=== PATIENT | female | born 1955 | race Caucasian/White ===

== ENCOUNTER 2023-08-16 10:29 | Outpatient (OUT) | payer MEDICARE, OTHER, SELFPAY ==
[2023-08-16 11:10] LABS: Basophils Percent Auto 0.6 % (0.2-2.0); Eosinophils Absolute Auto 0.2 10^3/uL (0.0-0.7); Hematocrit 42.7 % (36.0-48.0); Hemoglobin 13.5 g/dL (12.0-16.0); Immature Granulocytes Abs Auto 0.01 10^3/uL (0.00-0.03); Immature Granulocytes Pct Auto 0.2 % (0.0-0.5); Lymphocytes Absolute Auto 1.5 10^3/uL (1.2-3.8); Lymphocytes Percent Auto 29.6 % (20.5-60.0); Mean Corpuscular HGB Conc 31.6 g/dL (29.9-35.2); Mean Corpuscular Hemoglobin 29.2 pg (26.7-34.0); Mean Corpuscular Volume 92.2 fL (81.0-99.0); Mean Platelet Volume 10.8 fL (9.5-13.5); Monocytes Absolute Auto 0.5 10^3/uL (0.3-0.8); Monocytes Percent Auto 10.1 % (1.7-12.0); Neutrophils Absolute Auto 2.8 10^3/uL (1.4-6.5); Neutrophils Percent Auto 56.5 % (43.0-75.0); Platelet Count 146 10^3/uL (150-450); Red Blood Count 4.63 10^6/uL (4.20-5.40); Red Cell Distribution Width 12.9 % (11.0-15.0); White Blood Count 4.9 10^3/uL (4.0-11.0)
--- NOTE | 2023-08-16 11:13 | FL_ITS ---
[address] [address] Patient Name: ANYA CUNHA MRN: [id number] date: 1955 Sex: F Assigned Patient Location: LAB Current Patient Location: LAB Accession/Order Number: [id number] Exam Date: 08/16/2023 10:52 Report Date: 08/16/2023 14:34 At the request of: THOMAS NASSAR Procedure: FL modified barium swallow EXAMINATION: FL modified barium swallow HISTORY: Pharyngoesophageal Dysphagia R13.14 COMPARISON: No relevant comparison available. TECHNIQUE: A swallowing evaluation was performed with fluoroscopy in the usual manner. Standard level fluoroscopic mode of operation utilized. FINDINGS: ORAL PHASE: Normal deglutition. PHARYNGEAL PHASE: Normal swallowing. ASPIRATION: None. STRUCTURE: Normal. No visible obstruction, stricture, or dilatation. OTHER: Negative. FL/FL modified barium swallow IMPRESSION: Normal examination. Electronically authenticated by: JUDIE BERMUDEZ Date: 08/16/2023 14:34
[2023-08-16 11:50] LABS: Anion Gap 13.3; Calcium 9.3 mg/dL (8.5-10.1); Carbon Dioxide 27.9 mmol/L (21.0-32.0); Chloride 106 mmol/L (98-107); Chol HDL Ratio 4.5; Cholesterol 269 mg/dL (<=200); Estimated GFR (African America >60 (>=60); Estimated GFR (Non-African Ame >60 (>=60); Glucose 86 mg/dL (74-106); HDL Cholesterol 60 mg/dL (40-60); Potassium 4.2 mmol/L (3.5-5.1); Sodium 143 mmol/L (136-145); Triglycerides 111 mg/dL (<=150); VLDL CHOLESTEROL 22.2 mg/dL
== END 2023-08-16 10:30 | disposition home or self-care (01) ==
LOC: LAB 10:29
PROVIDERS: PCP Internal Medicine; Visit Provider Internal Medicine
DX: E78.00 Pure hypercholesterolemia, unspecified (principal); E06.3 Autoimmune thyroiditis; Z95.2 Presence of prosthetic heart valve; Z79.899 Other long term (current) drug therapy; R13.14 Dysphagia, pharyngoesophageal phase
CPT/HCPCS: 36415; 74230; 80048; 80061; 84443; 85025; 92611

== ENCOUNTER 2023-10-23 08:25 | Emergency (ER) | payer MEDICARE, OTHER, SELFPAY ==
[2023-10-23 08:36] VITALS: BP 162/87; PULSE 77; TEMP 36.6; O2SAT 97; BMI 24.3
--- NOTE | 2023-10-23 08:42 | ECG_ITS ---
The [facility] Test Date: 2023-10-23 Pat Name: ANYA CUNHA Department: Room: - Gender: Female Correspondent: : 1955 Requested By: THOMAS NASSAR Order Number: [id number] Reading MD: THOMAS NASSAR Measurements Intervals [place] Rate: 72 P: 118 VA: 114 QRS: 115 QRSD: 78 T: 103 QT: 376 QTc: 401 Interpretive Statements 1100 Sinus rhythm 2210 Short VA interval 3534 Lateral myocardial infarction, age undetermined 5120 Possible right ventricular hypertrophy 0101 Possible arm leads reversed, check lead requested 9150 abnormal ECG No previous ECG available for comparison Electronically Signed On 10-25-2023 7:06:18 EST by THOMAS NASSAR
--- NOTE | 2023-10-23 08:51 | ED_ITS ---
HPI - URI/Sore Throat General Chief Complaint: Upper Respiratory Infection Stated Complaint: COUGH/CHEST PAIN Time Seen by Provider: 10/23/23 08:30 Source: patient History of Present Illness HPI Narrative: 68-year-old female presents for a cough. She's had two days of coughing and she's been coughing up pale yellow phlegm. It kept her awake last night. No known fever or hemoptysis. She's had her influenza and pneumonia vaccines this year. No vomiting or diarrhea. Related Data Home Medications Medication Instructions Recorded Confirmed atorvastatin 10 mg tablet mg 10/23/23 folic acid 1 mg tablet 10/23/23 ibandronate 150 mg tablet mg PO 10/23/23 ibuprofen 800 mg tablet mg 10/23/23 levothyroxine 75 mcg tablet mcg 10/23/23 Previous Rx's Medication Instructions Recorded azithromycin 250 mg tablet See Rx Instructions PO .COMPLEX #6 10/23/23 (Zithromax Z-Damon) tabs benzonatate 100 mg capsule 100 mg PO TID PRN cough #20 caps 10/23/23 Allergies Allergy/AdvReac Type Severity Reaction Status Date / Time No Known Drug Allergies Allergy Verified 10/23/23 08:45 Review of Systems ROS Narrative A ten point review of systems is negative except as noted above. Exam Narrative Exam Narrative: Nurses note and vital signs reviewed and patient is not hypoxic. General: The patient appears well and in no apparent distress. Patient is resting comfortably on cart. she coughs frequently. Skin: Warm, dry, no pallor noted. There is no rash noted. Head: Normocephalic, atraumatic Eye: Normal conjunctiva, no drainage Ears, Nose, Mouth, and Throat: oral mucosa is moist. Nares patent. Cardiovascular: Regular Rate and Rhythm Respiratory: breath sounds are clear bilaterally with good air movement. Back: non-tender GI: soft and nontender Musculoskeletal: The patient has no evidence of calf tenderness, no pitting edema, symmetrical pulses noted bilaterally Neurological: A&O, normal speech Psychiatric: Cooperative Constitutional Vital Signs, click to edit/add: Last Vital Signs Temp 98 F 10/23/23 08:36 Pulse 77 10/23/23 08:36 BP 162/87 H 10/23/23 08:36 Pulse Ox 97 10/23/23 08:36 O2 Del Method Room Air 10/23/23 08:36 Course Vital Signs Vital signs: Vital Signs Temperature 98 F 10/23/23 08:36 Pulse Rate 77 10/23/23 08:36 Blood Pressure 162/87 H 10/23/23 08:36 Pulse Oximetry 97 10/23/23 08:36 Oxygen Delivery Method Room Air 10/23/23 08:36 Temperature 98 F 10/23/23 08:36 Pulse Rate 77 10/23/23 08:36 Blood Pressure 162/87 H 10/23/23 08:36 Pulse Oximetry 97 10/23/23 08:36 Oxygen Delivery Method Room Air 10/23/23 08:36 MDM - URI/Sore Throat MDM Narrative Medical decision making narrative: Covid and influenza tests are negative. Chest x-ray findings are discussed with the patient and she is able to be discharged home. Treatment diagnosis and follow-up were discussed with the patient and her . Differential Diagnosis Differential diagnosis: Likely upper respiratory infection and other (Covid, influenza, pneumonia) Lab Data Attestation: I reviewed the patient's lab results. 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 CLINICAL INDICATION: 68 years Female SOB FINDINGS: The cardiomediastinal silhouette and pulmonary vasculature are within normal limits. Poststernotomy changes are identified. There is slight scattered increased interstitial markings of the lungs probably representing a small amount of atelectasis or fibrosis. There are calcified nodules of each lung. The one the right measures approximately 2.5 cm. The one on the left measures approximately 1.2 cm. There is no evidence of pleural effusion or pneumothorax. IMPRESSION: 1. Poststernotomy changes 2. Scattered increased interstitial markings probably representing fibrosis or atelectasis. Some interstitial fluid due to congestion is also possible 3. Findings most consistent with bilateral calcified granulomas. Electronically authenticated by: ROSS BARRAZA Date: 10/23/2023 09:16 Discharge Plan Discharge Chief Complaint: Upper Respiratory Infection Clinical Impression: Upper respiratory infection Patient Disposition: Home, Self-Care Time of Disposition Decision: 09:48 Condition: Good Mode of Transportation: Private Vehicle Prescriptions / Home Meds: New azithromycin [Zithromax Z-Damon] 250 mg tablet See Rx Instructions .ROUTE .COMPLEX Qty: 6 0RF Rx Instructions: For 250 mg dose pack: take 500 mg today (day 1), then 250 mg for 4 days (days 2-5) benzonatate 100 mg capsule 100 mg PO TID PRN (Reason: cough) Qty: 20 0RF No Action atorvastatin 10 mg tablet ibuprofen 800 mg tablet levothyroxine 75 mcg tablet folic acid 1 mg tablet ibandronate 150 mg tablet PO Instructions: Upper Respiratory Infection (ED) Stand Alone Forms: Portal Instructions Referrals: Kaleb Chase DO [Primary Care Provider] - 1 week
--- NOTE | 2023-10-23 08:51 | XR_ITS ---
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 CLINICAL INDICATION: 68 years Female SOB FINDINGS: The cardiomediastinal silhouette and pulmonary vasculature are within normal limits. Poststernotomy changes are identified. There is slight scattered increased interstitial markings of the lungs probably representing a small amount of atelectasis or fibrosis. There are calcified nodules of each lung. The one the right measures approximately 2.5 cm. The one on the left measures approximately 1.2 cm. There is no evidence of pleural effusion or pneumothorax. XR/XR chest 1V IMPRESSION: 1. Poststernotomy changes 2. Scattered increased interstitial markings probably representing fibrosis or atelectasis. Some interstitial fluid due to congestion is also possible 3. Findings most consistent with bilateral calcified granulomas. Electronically authenticated by: ROSS BARRAZA Date: 10/23/2023 09:16
[2023-10-23 09:43] LABS: Influenza Virus A Antigen Negative; Influenza Virus B Antigen Negative; Internal Control Within Normal Limits; SARS-CoV-2 Ag NEGATIVE (NEGATIVE)
[2023-10-24 16:04] LABS: SARS-CoV-2 NAA INCONCLUSIVE (NOT DETECTE)
== END 2023-10-23 10:01 | disposition home or self-care (01) ==
PROVIDERS: Emergency Provider Emergency Medicine; PCP Internal Medicine
DX: J06.9 Acute upper respiratory infection, unspecified (principal); Z79.899 Other long term (current) drug therapy; Z79.890 Hormone replacement therapy; Z20.822 Contact with and (suspected) exposure to COVID-19
CPT/HCPCS: 71045; 87635; 87804; 87811; 93005; 99284

== ENCOUNTER 2024-09-22 10:51 | Outpatient (OUT) | payer MEDICARE, OTHER, SELFPAY ==
--- OUTSIDE RECORDS SUMMARY | 2024-09-22 10:57 | XMS_ITS | CCD ---
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 Name Role Phone PHYSICIAN, DEFAULT Unavailable Unavailable PHYSICIAN, DEFAULT Unavailable Unavailable Kaleb Nassar Unavailable Unavailable Unavailable DR KALEB NASSAR Attending Unavailable MADAY, DR GUZMAN Consulting Unavailable MADAY, DR GUZMAN Primary Care Unavailable MADAY, DR GUZMAN Admitting Unavailable DO Kaleb Nassar Primary Care Provider [phone] MD Aidan Little Attending Provider TRISTON MCDUFFIE Referring Unavailable Karan BROWER, Niranjan White Attending Kaleb Loyd Primary Care Unavailabl e Karan BROWER, Niranjan White Referring Unav ailable Karan BROWER, Niranjan White Attending Lorv Kaleb Oconnor Primary Care Unavailabl e Karan BROWER, Dr. Niranjan White Attending Unavailable Dr. Kaleb Nassar Primary Care Lorvai Kaleb Mariscal Unavailable Kaleb Nassar DO Primary Care Provider DO Kaleb Nassar Primary Care Provider MD Niranjan Russo Attending Provider RACHEL Stovall Attending Provider [phone] SURESH NEWSOME Attending Unavailab KALEB Leonard Primary Care UnavailNIRANJAN Akbar Referring Unavailable GLORIA DECKER Attending Unavailable KALEB NASSAR Primary Care Unavailkarime e Kaleb Nassar DO Primary Care Provider DO Kaleb Nassar Primary Care Provider MD Niranjan Russo Attending Provider RACHEL Stovall Attending Provider Self, Referral Attending Provider Unavailable MD Aidan Little Attending Provider [phone] Maday Kaleb Primary Care Unavailable Wilman, Kitty Landin Admitting Unavailable Kitty Stovall Attending Unavailable Ball, Kaleb Primary Care Unavailable Self, Referral Admitting Unavailable Self, Referral Attending Unavailable Niranjan Russo Attending Unavail able Maday, Kaleb Primary Care Unavailable Niranjan Russo Admitting Unavail able Aidan Little Attending Unavailable Maday, Kaleb Primary Care Unavailable Aidan Little Admitting Unavailable Ball, Kaleb Primary Care Unavailable Niranjan Russo Admitting Unavail able Niranjan Russo Attending Unavail able AIDAN LITTLE Referring Unavailable MADAY, KALEB E Primary Care Unavailable CHELLY ONEAL Attending Unavailab le HRFANNY HOBBS Referring Unavailable BALL, KALEB E Primary Care Unavailable MADAY, KALEB E Primary Care Unavailable AIDAN LITTLE Referring Unavailable MADAY, KALEB E Primary Care Unavailable RISA CERVANTES Referring Unavaila ble BALL, KALEB E Primary Care Unavailable Ball , Kaleb E Primary Care Provider Niranjan Russo MD Unavailable [phone] Lopez Eng Unavailable Ball DO, Kaleb E Primary Care Provider Maday DO, Kaleb E Primary Care Provider RADHA SAMUEL Attending Unavailable RADHA SAMUEL Attending Unavailable RADHA SAMUEL Attending Unavailable Maday DO, Kaleb E Primary Care Provider CHELLY ONEAL Referring Unavailab le CHELLY ONEAL Attending Unavailab le BALL, KALEB E Primary Care Unavailable MADAY, KALEB E Primary Care Unavailable CHELLY ONEAL Referring Unavailab le CHELLY ONEAL Referring Unavailab le CHELLY ONEAL Attending Unavailab le MADAY, KALEB E Primary Care Unavailable HRFANNY HOBBS Referring Unavailable MADAY, KALEB E Primary Care Unavailable CHELLY ONEAL Attending Unavailab le CHELLY ONEAL Admitting Unavailab le MADAY, KALEB E Primary Care Unavailable NIRANJAN RUSSO Referring Unavailable MADAY, KALEB E Primary Care Unavailable NIRANJAN RUSSO Attending Unavailable NIRANJAN RUSSO Referring Unavailable MADAY, KALEB E Primary Care Unavailable NIRANJAN RUSSO Attending Unavailable NIRANJAN RUSSO Referring Unavailable KALEB NASSAR Primary Care Unavailable NIRANJAN RUSSO Attending Unavailable NIRANJAN RUSSO Referring Unavailable KALEB NASSAR Primary Care Unavailable MAYTE LOBO Attending Unavailable KALEB NASSAR Primary Care Unavailable Allergies Allergy Classification Reported Allergen(s) Allergy Type Date of Onset Reaction(s) Facility (14 sources) cat dander; Translations: [cat dander] Allergy to substance 9 Itching [facility] (7 sources) hydrALAZINE; Translations: [HYDRALAZINE HCL] Drug Allergy 8 Other: See Comments [facility] Medications Current Medications Medication Drug Class(es) Dates Sig (Normalized) Sig (Original) atorvastatin 10 mg oral tablet (11 sources) HMG-CoA Reductase Inhibitor Start: 09-20-2023 End: 09-19-2024 take 1 tablet by mouth once daily Atorvastatin 10 mg tablet Active 10 MG PO Daily October 21, 2023 12:00am Comment on above: Take 10 mg by mouth once daily. cefuroxime 500 mg oral tablet (1 source) Cephalosporin Antibacterial Start: 11-01-2023 take 1 tablet by mouth every twelve hours Cefuroxime Axetil 500 MG 1 tablet Orally every 12 hrs for 7 days Oct, Active estradiol 0.1 mg/ml vaginal cream (6 sources) Estrogen Start: 09-18-2024 Estradiol 0.01 % (0.1 mg/gram) cream Active 1 GM VAGINAL 3 Times a week September 18, 2024 12:00am Start: 12-15-2023 End: 04-05-2024 estradiol (ESTRACE) 0.01 % ( 0.1 mg/gram) vaginal cream Use 1 g vaginally three times a week. 12 g 3 12/15/2023 Active Start: 12-15-2023 End: 04-05-2024 estradiol (Estrace) 0.01 % ( 0.1 mg/gram) vaginal cream Insert 0.25 Applicatorfuls (1 g) into the vagina. 12/15/2023 04/05/2024 Active Comment on above: Use 1 g vaginally th ree times a week. folic acid 1 mg oral tablet (20 sources) Start: 10-12-2019 take 1 tablet by mouth once daily in the morning Folic Acid 1 mg tablet Active 1 MG PO Every morning October 12, 2019 12:00am Start: 07-28-2018 End: 10-12-2019 take 1 tablet by mouth once daily Folic Acid 400 mcg Tablet Discontinued 400 MCG PO Daily July 27, 2018 11:00pm October 12, 2019 8:08am take 1 tablet by nas twice daily folic acid 1 mg tablet Take 1 mg by mouth two times a day. Active Comment on above: Take 1 mg by mouth t wo times a day. ibandronic acid 150 mg oral tablet (20 sources) Bisphosphonate Start: 8 take 1 tablet by mouth every month Ibandronate 150 mg tablet Active 150 MG PO every month April 05, 2018 11:00pm First of the month take 1 tablet by mouth every 30 days ibandronate (Boniva) 150 mg tablet Take 1 tablet (150 mg) by mouth every 30 (thirty) days. Active take 1 tablet by mouth once tran y Ibandronate Sodium 150 MG 1 tablet 60 minutes before the first food, beverage or medicine of the day with plain water Orally daily Active Comment on above: Take 150 mg by mouth once every month. ibuprofen 800 mg oral tablet (2 sources) Nonsteroidal Anti-inflammatory Drug Start: 10-21-2023 take 1 tablet by mouth three times daily as needed for pain Ibuprofen 800 mg tablet Active 800 MG PO Three times daily as needed for pain October 21, 2023 12:00am Indole 3 Carbinol (7 sources) Start: 10-12-2019 Indole 3 Carbinol Active 200 MG PO Daily October 12, 2019 1:00am Start: 10-12-2019 Indole 3 Carbi nol Active 200 MG PO Daily October 12, 2019 12:00am VHDJDW-3-OYGQBWAP, BULK, MIS C (5 sources) XPUFLU-7-OMGHEEQ L, BULK, MISC 200 mg once daily. Active YGWLTN-2-MLOXERC L, BULK, MISC 200 mg once daily. 0 Active Comment on above: 200 mg once daily. cjbghl-7-mrmdfrvm, bulk, powder (7 sources) take 200 mg by mouth once daily fziiyv-7-ylodaqma, bulk, powder Take 200 mg by mouth once daily. Active take 200 mg by mouth once daily gmedhx-9-yqxfvnlo, bulk, powder Take 200 mg by mouth once daily. 0 Active iv contrast (will be provide d with radiology test) (6 sources) Start: 12-15-2023 End: 12-16-2023 iv contrast (will be provide d with radiology test) MRI Female Pelvis Inject, intravenously, once for 1 dose. No IV access, insert saline lock prior to the beginning of sedation, infusion, injection of imaging exam. Discontinue saline lock post exam. If Pt has a central line or IVAD, may access for administration according to line specific nursing protocol. Once exam is complete flush line and de-access according to line specific nursing protocol in the MR contrast administration guidelines link. 1 Each 0 12/15/2023 12/16/2023 Active Start: 11-18-2023 iv contrast (w ill be provided with radiology test) MRI Female Pelvis Inject, intravenously, once for 1 dose. No IV access, insert saline lock prior to the beginning of sedation, infusion, injection of imaging exam. Discontinue saline lock post exam. If Pt has a central line or IVAD, may access for administration according to line specific nursing protocol. Once exam is complete flush line and de-access according to line specific nursing protocol in the MR contrast administration guidelines link. 1 Each 11/18/2023 Active Start: 11-18-2023 iv contrast (w ill be provided with radiology test) MRI Female Pelvis Inject, intravenously, once for 1 dose. No IV access, insert saline lock prior to the beginning of sedation, infusion, injection of imaging exam. Discontinue saline lock post exam. If Pt has a central line or IVAD, may access for administration according to line specific nursing protocol. Once exam is complete flush line and de-access according to line specific nursing protocol in the MR contrast administration guidelines link. 1 Each 0 11/18/2023 Active Comment on above: MRI Female Pelvis In ject, intravenously, once for 1 dose. No IV access, insert saline lock prior to the beginning of sedation, infusion, injection of imaging exam. Discontinue saline lock post exam. If Pt has a central line or IVAD, may access for administration according to line specific nursing protocol. Once exam is complete flush line and de-access according to line specific nursing protocol in the MR contrast administration guidelines link. levothyroxine sodium 0.088 mg oral tablet (20 sources) l-Thyroxine Start: 04-03-20 take 1 tablet by mouth once daily in the morning Levothyroxine 88 mcg tablet Active 0 .ROUTE .COMPLEX 90 April 03, 2024 11:57am TAKE 1 TABLET BY MOUTH EVERY DAY IN THE MORNING ON EMPTY STOMACH Start: 08-19-2023 End: 04-03-2024 take 1 tablet by mouth once daily in the morning Levothyroxine 88 mcg Tablet Discontinued 88 MCG PO Every morning August 18, 2023 11:00pm April 03, 2024 11:57am Start: 08-18-2023 take 1 tablet by nas th once daily in the morning Levothyroxine Sodium 88 MCG 1 tablet in the morning on an empty stomach Orally Once a day for 30 days Aug, Active Start: 04-06-2018 End: 08-29-2023 take 1 tablet by mouth once daily Levothyroxine 75 mcg tablet Discontinued 75 MCG PO Daily April 05, 2018 11:00pm August 19, 2023 7:54am levothyroxine (S YNTHROID) 75 mcg tablet Take 88 mcg by mouth daily before breakfast. Active take 1 capsule by mo [facility] once daily before mealtime levothyroxine (Tirosint) 88 mcg capsule Take 1 capsule (88 mcg) by mouth once daily in the morning. Take before meals. Active take 1 tablet by nas th once daily in the morning Levothyroxine Sodium 75 MCG 1 tablet in the morning on an empty stomach Orally Once a day Active Comment on above: Take 88 mcg by mouth daily before breakfast. Surgical Lubricant Jelly gel (9 sources) Start: 12-15-2023 Surgical Lubricant Jelly gel For MRI Female Pelvis, MRI department to provide. Administer intra-vaginal Surgilube immediately prior the MRI procedure (total amount to patient toleranace). 3 g 12/15/2023 Active Start: 12-15-2023 Surgical Lubri cant Jelly gel For MRI Female Pelvis, MRI department to provide. Administer intra-vaginal Surgilube immediately prior the MRI procedure (total amount to patient toleranace). 3 g 0 12/15/2023 Active Start: 11-18-2023 Surgical Lubri cant Jelly gel For MRI Female Pelvis, MRI department to provide. Administer intra-vaginal Surgilube immediately prior the MRI procedure (total amount to patient toleranace). 5 g 11/18/2023 Active Start: 11-18-2023 Surgical Lubri cant Jelly gel For MRI Female Pelvis, MRI department to provide. Administer intra-vaginal Surgilube immediately prior the MRI procedure (total amount to patient toleranace). 5 g 0 11/18/2023 Active Comment on above: For MRI Female Pelvi s, MRI department to provide. Administer intra-vaginal Surgilube immediately prior the MRI procedure (total amount to patient toleranace). ubidecarenone 100 mg oral capsule (20 sources) Start: 10-12-2019 Coenzyme Q10 (Co Q-10) 100 mg Capsule Active 100 MG PO Every morning October 12, 2019 12:00am take 1 capsule by mouth once loretta ly coenzyme Q-10 100 mg capsule Take 1 capsule (100 mg) by mouth once daily. Active Comment on above: Take 100 mg by mouth once daily. Completed/Discontinued Medications Medication Drug Class(es) Dates Sig (Normalized) Sig (Original) acetaminophen 325 mg / HYDROcodone bitartrate 5 mg oral tablet (14 sources) Opioid Agonist Start: 10-16-2019 End: 06-03-2020 take 1 tablet by mouth every four to six hours as needed for pain Hydrocodone-Acetami nophen ([place]) 5-325 mg tablet Discontinued 1 TAB PO EVERY 4-6 HOURS as needed for pain 40 October 16, 2019 June 03, 2020 5:17am Start: 07-28-2018 End: 10-12-2019 take 1 tablet by mouth every six hours as needed for pain Hydrocodone-Acetaminophen ([place]) 5-325 mg tablet Discontinued 1 TAB PO Q6H as needed for pain 28 July 28, 2018 October 12, 2019 8:09am aspirin 81 mg delayed release oral tablet (11 sources) Platelet Aggregation Inhibitor, Nonsteroidal Anti-inflammatory Drug Start: 10-12-2019 End: 06-03-2020 take 1 tablet by mouth once daily Aspirin 81 mg Tablet,Delayed Release (Dr/Ec) Discontinued 81 MG PO Daily October 12, 2019 12:00am June 03, 2020 5:16am take 1 tablet by nas th every twenty-four hours Aspirin 81 MG 1 tablet Orally Once a day Active bacitracin 0.5 unt/mg ophthalmic ointment (7 sources) Start: 10-16-2019 End: 06-03-2020 Bacitracin 500 unit/gram ointment Discontinued 1 APPLIC OPHTHALMIC Q8H 1 October 16, 2019 12:00am June 03, 2020 5:16am cephalexin 250 mg oral capsule (7 sources) Cephalosporin Antibacterial Start: 07-28-2018 End: 08-04-2018 take 1 capsule by mouth every six hours Cephalexin 250 mg capsule Discontinued 250 MG PO Q6H 28 7 July 27, 2018 11:00pm August 02, 2018 11:00pm August 03, 2018 11:01pm Otaaty-7-Byvhypkz Powder (9 sources) Lbukjs-3-Dfvjqnx l Powder 200 MG 1 TABLET DAILY Quantity: 0 Refills: 0 Ordered: 21-Oct-2022 DO Active Yokpac-3-Oppjvfd l Powder 200 MG 2 TABLETS DAILY Quantity: 0 Refills: 0 Ordered: 11-Aug-2021 DO Active multivitamin with minerals iron-free (Multivitamin 50 Plus) (5 sources) Start: 05-16-2023 End: 03-28-2024 take 1 tablet by mouth once daily multivitamin with minerals iron-free (Multivitamin 50 Plus) Take 1 tablet by mouth once daily. 05/16/2023 03/28/2024 Discontinued (Therapy completed) Start: 05-16-2023 take 1 tablet by nas th once daily multivitamin with minerals iron-free (Multivitamin 50 Plus) Take 1 tablet by mouth once daily. 05/16/2023 Active Start: 05-16-2023 take 1 tablet by nas th once daily multivitamin with minerals iron-free (Multivitamin 50 Plus) Take 1 tablet by mouth once daily. 0 05/16/2023 Active ubidecarenone 100 mg / vitam in e 5 unt oral capsule (4 sources) take 1 capsule by mo uth once daily CoQ10 100 MG Oral Capsule TAKE 1 CAPSULE Daily Quantity: 0 Refills: 0 Ordered: 11-Aug-2021 DO Active Problems Active Problems Problem Classification Problem Date Documented Date Episodic/Chronic Acute bronchitis (1 source) Acute bronchitis due to other specified organisms Episodic Cardiac dysrhythmias (15 sources) Paroxysmal atrial fibrillation; Translations: [Paroxysmal atrial fibrillation] Onset: 8 08-09-2023 Chronic Coagulation and hemorrhagic disorders (8 sources) Thrombocytopenia, unspecified; Translations: [Thrombocytopenic disorder] Onset: Chronic Complication of device; implant or graft (5 sources) Stenosis of other cardiac prosthetic devices, implants and grafts, initial encounter; 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] Onset: 3 Episodic Comment on above: Echo: Velocity > 400 - 03/2024- no intervention in absence of symptoms Disorders of lipid metabolism (14 sources) Pure hypercholesterolemia, unspecified; Translations: [Pure hypercholesterolemia] Onset: 2 Chronic Esophageal disorders (2 sources) Gastroesophageal reflux disease; Translations: [Gastro-esophageal reflux disease without esophagitis] 09-18-2024 Chronic Heart valve disorders (20 sources) History of aortic valve replacement; Translations: [Heart valve replaced by transplant] Onset: 8 Resolved: 8 Chronic Comment on above: 2018 Menopausal disorders (6 sources) Postmenopausal bleeding; Translations: [Postmenopausal bleeding] Onset: 3 12-15-2023 Chronic Osteoporosis (20 sources) Osteoporosis; Translations: [Osteoporosis, unspecified] Onset: 3 Chronic Other aftercare (1 source) 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 Episodic Other female genital disorders (1 source) Stenosis of cervix; Translations: [Stricture and stenosis of cervix uteri] 12-16-2023 Episodic Other gastrointestinal disorders (5 sources) Dysphagia; Translations: [Dysphagia, pharyngoesophageal phase] 09-18-2024 Episodic Other gastrointestinal disorders (1 source) Dysphagia, pharyngoesophageal phase Episodic Other gastrointestinal disorders (1 source) Dysphagia, unspecified; Translations: [Dysphagia, unspecified] 09-18-2024 Episodic Other nutritional; endocrine; and metabolic disorders (4 sources) Overweight; Translations: [Overweight] Episodic Other screening for suspected conditions (not mental disorders or infectious disease) (1 source) Endometrium thickened; Translations: [Abnormal findings on diagnostic imaging of other specified body structures] 04-05-2024 Chronic Other screening for suspected conditions (not mental disorders or infectious disease) (20 sources) Patient encounter status; Translations: [Encounter for screening for malignant neoplasm of colon] Onset: 3 06-03-2020 Episodic Peripheral and visceral atherosclerosis (10 sources) Atherosclerosis of renal artery; Translations: [Renal artery stenosis] Onset: 8 Resolved: 8 11-14-2023 Chronic Residual codes; unclassified (8 sources) Procedure related finding; Translations: [Encounter for cosmetic surgery] Episodic Residual codes; unclassified (2 sources) Acquired absence of kidney; Translations: [Acquired absence of kidney] Onset: 4 09-18-2024 Episodic Residual codes; unclassified (5 sources) History of nephrectomy; Translations: [Acquired absence of kidney] Onset: 8 Resolved: 8 05-09-2018 Episodic Comment on above: r/t renal artery jarrett nosis Thyroid disorders (20 sources) Hypothyroidism; Translations: [Unspecified acquired hypothyroidism] Onset: 8 Chronic Unclassified (1 source) Encounter for screening mammogram for malignant neoplasm of breast; Translations: [Encounter for screening mammogram for malignant neoplasm of breast] Onset: 3 Unclassified (1 source) Stenosis of other cardiac prosthetic devices, implants and grafts, initial encounter; Translations: [Stenosis of other cardiac prosthetic devices, implants and grafts, initial encounter] Onset: 3 Unclassified (1 source) Encounter for preprocedural cardiovascular examination; Translations: [Encounter for preprocedural cardiovascular examination] Onset: 3 Unclassified (3 sources) Transition of care; Translations: [Transition of care performed with sharing of clinical summary] Onset: 8 05-10-2018 Past or Other Problems Problem Classification Problem Date Documented Date Episodic/Chronic Acute posthemorrhagic anemia (4 sources) Acute posthemorrhagic anemia; Translations: [Acute posthemorrhagic anemia] Onset: 05-07-2018 Resolved: 05-09-2018 05-09-2018 Episodic Administrative/social admission (5 sources) Discharge status; Translations: [Encounter for administrative examinations, unspecified] Onset: 05-02-2018 05-09-2018 Episodic Complications of surgical procedures or medical care (20 sources) Atrial fibrillation; Translations: [Other postprocedural complications and disorders of the circulatory system, not elsewhere classified] Onset: 05-05-2018 09-06-2023 Episodic Fluid and electrolyte disorders (4 sources) Hypervolemia; Translations: [Fluid overload, unspecified] Onset: 05-07-2018 Resolved: 05-09-2018 05-09-2018 Episodic Immunity disorders (4 sources) Sarcoidosis; Translations: [Sarcoidosis, unspecified] Onset: 05-01-2018 Resolved: 05-09-2018 05-09-2018 Chronic Other connective tissue disease (5 sources) Trochanteric bursitis of right hip; Translations: [Trochanteric bursitis, right hip] Onset: 04-08-2023 09-06-2023 Episodic Other nervous system disorders (4 sources) Postoperative pain ; Translations: [Other acute postprocedural pain] Onset: 05-05-2018 Resolved: 05-09-2018 05-09-2018 Episodic Pleurisy; pneumothorax; pulmonary collapse (14 sources) Hydropneumothorax; Translations: [Other specified pleural conditions] Onset: 05-06-2018 Resolved: 09-06-2023 09-06-2023 Episodic Residual codes; unclassified (16 sources) Body mass index 20-24 - normal; Translations: [Body Mass Index between 19-24, adult] Onset: 08-07-2023 08-07-2023 Episodic Residual codes; unclassified (5 sources) Absent kidney; Translations: [Acquired absence of kidney] Onset: 11-14-2023 11-14-2023 Episodic Residual codes; unclassified (2 sources) Transition of care; Translations: [Other specified health status] Onset: 05-09-2018 05-10-2018 Episodic Respiratory failure; insufficiency; arrest (adult) (4 sources) Ventilator finding; Translations: [Dependence on respirator [ventilator] status] Onset: 05-05-2018 Resolved: 05-06-2018 05-06-2018 Chronic Unclassified (9 sources) Never smoked tobacco; Translations: [Never a smoker] Unclassified (7 sources) Onset: 08-09-2023 Resolved: 03-28-2024 08-09-2023 Results Test Name Value Interpretation Reference Range Facility [facility] 03-22-2024 [facility] HNO ID: [id number] Author: LADI GOODE loading inspector Service: Radiology Author Type: Historian [employer] Type: [employer] Filed: 03/22/2024 11:59 Note Text: Radiology Service Progress Note DATE OF SERVICE: March 22, 2024 TIME: 11:59 AM PATIENT IDENTITY VERIFICATION COMPLETED USING TWO (2) STANDARD IDENTIFIERS: Name and Date of confirmed by patient verbally. FALL SCREENING: Has the patient had 2 falls in the last year or 1 fall with injury or currently using an Ambulatory Assistive Device (Walker, Cane, Wheelchair, Crutches, etc.)? No PATIENT GENDER DATA: Female. status: : No status: NO. PATIENT RELEVANT IMPLANT DATA REVIEWED: Yes PATIENT PRESENTS WITH AN IMPLANTABLE OR ATTACHED CIRCUS ROUSTABOUT: No ALLERGIES: Reviewed and unchanged CONTRAST ALLERGY: NO. EXAM: MRI - CONTRAST TYPE: GROUP II PERIPHERAL IV DATA: Ambulatory: A peripheral IV was started in the Left hand with a Butterfly: 23 gauge. RADIOLOGY DEPARTMENT: MR; Exam(s) Completed: Body: Female Pelvis SIGNATURE: SOLEDAD Sheikh Tech PATIENT NAME: Flor Hernandez DATE: March 22, 2024 TIME: 11:59 AM Normal [facility] MR Pelvis WO and W contrast Josy 03-22-2024 IMPRESSION: Grossly unremarkable MR appearance of the uterus and endometrium. No endometrial thickening or mass. Home Health Provider: SANDY Transcribe Date/Time: Mar 22 2024 4:11P Dictated by : ELDON MERA MD This examination was interpreted and the report reviewed and electronically signed by: ELDON MERA MD on Mar 22 2024 4:24PM [facility] RADIOLOGY * * *Final Report* * * DATE OF EXAM: Mar 22 2024 12:09PM [facility] 0713 - MRI FEMALE PELVIS WO/W IVCON / PROCEDURE REASON: PMB (postmenopausal bleeding) * * * * Physician Interpretation * * * * MRI OF THE PELVIS WITHOUT AND WITH CONTRAST CLINICAL HISTORY: Postmenopausal bleeding. COMPARISON: MRI performed 11/30/2023 TECHNIQUE: Using the torso phased array coil and a 1.5 T scanner, axial T1 weighted, axial, sagittal and coronal T2 weighted and coronal HASTE images were obtained through the pelvis. Then, an axial T1 weighted 3-D GRE sequence was performed before and after the administration of intravenous Gadolinium chelate. Coronal HASTE images were obtained through the kidneys. Contrast Media: IV administration of 12 ml of Dotarem RESULT: Uterus: - Orientation: Anteverted - Dimensions: 4.9 x 2.6 x 2 cm. - Myometrium: No focal masses. - Junctional zone: 3 mm - Endometrium: 3 mm. No focal endometrial masses are seen. - Cervix: No focal cervical mass. Right ovary: The right ovary measures approximately 2.1 x 1 x 1.6 cm. There is a unilocular 0.7 cm cyst in the right ovary. No solid adnexal mass is seen. Left ovary: The left ovary measures approximately 1.8 x 0.7 x 1.3 cm. No solid adnexal mass is seen. Pelvis free fluid: None. Other findings: The urinary bladder is unremarkable. Visualized bowel loops are unremarkable. The right kidney is seen within the pelvis. Bosniak 1 cysts are noted in the right kidney. The left kidney is absent. The visualized upper abdomen is otherwise unremarkable. [facility] Provider, Arielle Robert [facility] - 03/22/2024 * * *Final Report* * * DATE OF EXAM: Mar 22 2024 12:09PM [facility] 0713 - MRI FEMALE PELVIS WO/W IVCON / PROCEDURE REASON: PMB (postmenopausal bleeding) * * * * Physician Interpretation * * * * MRI OF THE PELVIS WITHOUT AND WITH CONTRAST CLINICAL HISTORY: Postmenopausal bleeding. COMPARISON: MRI performed 11/30/2023 TECHNIQUE: Using the torso phased array coil and a 1.5 T scanner, axial T1 weighted, axial, sagittal and coronal T2 weighted and coronal HASTE images were obtained through the pelvis. Then, an axial T1 weighted 3-D GRE sequence was performed before and after the administration of intravenous Gadolinium chelate. Coronal HASTE images were obtained through the kidneys. Contrast Media: IV administration of 12 ml of Dotarem RESULT: Uterus: - Orientation: Anteverted - Dimensions: 4.9 x 2.6 x 2 cm. - Myometrium: No focal masses. - Junctional zone: 3 mm - Endometrium: 3 mm. No focal endometrial masses are seen. - Cervix: No focal cervical mass. Right ovary: The right ovary measures approximately 2.1 x 1 x 1.6 cm. There is a unilocular 0.7 cm cyst in the right ovary. No solid adnexal mass is seen. Left ovary: The left ovary measures approximately 1.8 x 0.7 x 1.3 cm. No solid adnexal mass is seen. Pelvis free fluid: None. Other findings: The urinary bladder is unremarkable. Visualized bowel loops are unremarkable. The right kidney is seen within the pelvis. Bosniak 1 cysts are noted in the right kidney. The left kidney is absent. The visualized upper abdomen is otherwise unremarkable. IMPRESSION IMPRESSION: Grossly unremarkable MR appearance of the uterus and endometrium. No endometrial thickening or mass. Home Health Provider: SANDY Transcribe Date/Time: Mar 22 2024 4:11P Dictated by : ELDON MERA MD This examination was interpreted and the report reviewed and electronically signed by: ELDON MERA MD on Mar 22 2024 4:24PM EST [facility] Radiology Study observation (narrative) [facility] MR Pelvis WO and W contrast IVOrdered By: Ccf Provider on 03-22-2024 [facility] MRI FEMALE PELVIS WO/W IVCON on 03-22-2024 MRI FEMALE PELVIS WO/W IVCON * * *Final Report* * * DATE OF EXAM: Mar 22 2024 12:09PM [facility] 0713 - MRI FEMALE PELVIS WO/W IVCON / PROCEDURE REASON: PMB (postmenopausal bleeding) * * * * Physician Interpretation * * * * MRI OF THE PELVIS WITHOUT AND WITH CONTRAST CLINICAL HISTORY: Postmenopausal bleeding. COMPARISON: MRI performed 11/30/2023 TECHNIQUE: Using the torso phased array coil and a 1.5 T scanner, axial T1 weighted, axial, sagittal and coronal T2 weighted and coronal HASTE images were obtained through the pelvis. Then, an axial T1 weighted 3-D GRE sequence was performed before and after the administration of intravenous Gadolinium chelate. Coronal HASTE images were obtained through the kidneys. Contrast Media: IV administration of 12 ml of Dotarem RESULT: Uterus: - Orientation: Anteverted - Dimensions: 4.9 x 2.6 x 2 cm. - Myometrium: No focal masses. - Junctional zone: 3 mm - Endometrium: 3 mm. No focal endometrial masses are seen. - Cervix: No focal cervical mass. Right ovary: The right ovary measures approximately 2.1 x 1 x 1.6 cm. There is a unilocular 0.7 cm cyst in the right ovary. No solid adnexal mass is seen. Left ovary: The left ovary measures approximately 1.8 x 0.7 x 1.3 cm. No solid adnexal mass is seen. Pelvis free fluid: None. Other findings: The urinary bladder is unremarkable. Visualized bowel loops are unremarkable. The right kidney is seen within the pelvis. Bosniak 1 cysts are noted in the right kidney. The left kidney is absent. The visualized upper abdomen is otherwise unremarkable. IMPRESSION: Grossly unremarkable MR appearance of the uterus and endometrium. No endometrial thickening or mass. Home Health Provider: SANDY Transcribe Date/Time: Mar 22 2024 4:11P Dictated by : ELDON MERA MD This examination was interpreted and the report reviewed and electronically signed by: ELDON MERA MD on Mar 22 2024 4:24PM EST [id number] [facility] 03-21-2024 CNPN Telephone (RGFV) -- FLOR HERNANDEZ ([id number]) 1955 F Date Time Provider Department 03/21/24 CAROL ANN HOOPER ([place]) RGFV During your visit today, we recorded the following information about you: Allergies As of Date: 03/21/2024 Noted Allergy Reaction APRESOLINE (HYDRALAZINE HCL) 05/01/2018 14 - Other: See Comments Comments: Kidney injury - renal stenosis CAT JOJO 10/16/2019 9 - Itching Date Reviewed: 12/15/2023 Reviewed by: Lindsey Villalpando MA - Fully Assessed Reason for Visit: Appointment [186] Cmt: Appointment reminder call- spoke with patient- gave directions to the office Prescriptions as of 03/21/2024 - Surgical Lubricant Jelly gel For MRI Female Pelvis, MRI department to provide. Administer intra-vaginal Surgilube immediately prior the MRI procedure (total amount to patient toleranace). - estradiol (ESTRACE) 0.01 % (0.1 mg/gram) vaginal cream Use 1 g vaginally three times a week. - iv contrast (will be provided with radiology test) MRI Female Pelvis Inject, intravenously, once for 1 dose. No IV access, insert saline lock prior to the beginning of sedation, infusion, injection of imaging exam. Discontinue saline lock post exam. If Pt has a central line or IVAD, may access for administration according to line specific nursing protocol. Once exam is complete flush line and de-access according to line specific nursing protocol in the MR contrast administration guidelines link. - Surgical Lubricant Jelly gel For MRI Female Pelvis, MRI department to provide. Administer intra-vaginal Surgilube immediately prior the MRI procedure (total amount to patient toleranace). - atorvastatin (LIPITOR) 10 mg tablet Take 10 mg by mouth once daily. - folic acid 1 mg tablet Take 1 mg by mouth two times a day. - [id number], BULK, MISC 200 mg once daily. - coenzyme Q10 (CO Q-10) 100 mg cap capsule Take 100 mg by mouth once daily. - Ibandronate 150 mg tablet Take 150 mg by mouth once every month. - levothyroxine (SYNTHROID) 75 mcg tablet Take 88 mcg by mouth daily before breakfast. Problem List As Of Date 03/21/2024 Noted Resolved Severe calcific aortic stenosis [I35.0] 05/01/2018 05/09/2018 Hypothyroidism [E03.9] 05/01/2018 Pre-operative cardiovascular examination [Z01.8*05/01/2018 05/09/2018 H/O unilateral nephrectomy [Z90.5] 05/01/2018 05/09/2018 Sarcoidosis (HCC) [D86.9] 05/01/2018 05/09/2018 Renal artery stenosis (HCC) [I70.1] 05/01/2018 05/09/2018 Discharge planning issues [Z75.8] 05/02/2018 Preop testing [Z01.818] 05/02/2018 05/09/2018 Difficult airway for intubation [T88.4XXA] 05/05/2018 Aortic stenosis [I35.0] 05/05/2018 05/09/2018 On mechanically assisted ventilation (HCC) [Z99*05/05/2018 05/06/2018 Post-op pain [G89.18] 05/05/2018 05/09/2018 Hydropneumothorax [J94.8] 05/06/2018 Fluid overload [E87.70] 05/07/2018 05/09/2018 Atelectasis [J98.11] 05/07/2018 05/09/2018 Acute blood loss anemia [D62] 05/07/2018 05/09/2018 Postoperative atrial fibrillation (HCC) [I97.89*05/08/2018 Transition of care performed with sharing of cl*05/09/2018 Aortic stenosis [I35.0] 11/14/2023 High cholesterol [E78.00] 11/14/2023 Renal artery stenosis (HCC) [I70.1] 11/14/2023 Single kidney [Z90.5] 11/14/2023 Encounter Status:Closed by CAROL ANN JUÁREZ on 03/21/24 [facility] TRANSTHORACIC ECHO (TTE) COM ROBELon 02-27-2024 TRANSTHORACIC ECHO (TTE) COMPLETE [address], [address] [place] [address] TRANSTHORACIC ECHOCARDIOGRAM REPORT Patient Name: FLOR HERNANDEZ Reading Physician: [id number] Rolanda pSarks MD Study Date: 02/27/2024 Ordering Provider: [id number] NIRANJAN RUSSO MRN/PID: [id number] Fellow: Nurse: Date of /Age: 10 1955 / 68 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: Sugar Glez RDCS, RVT Gender: F Additional Staff: Height: 160.02 cm Admit Date: Weight: 60.78 kg Admission Status: BSA / BMI: 1.63 m2 / 23.74 kg/m2 Department Location: [facility] Blood Pressure: 136 /82 mmHg Study Type: TRANSTHORACIC ECHO (TTE) COMPLETE Diagnosis/ICD: 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 PHYSICIAN INTERPRETATION: Left Ventricle: Left ventricular systolic function is normal, with an estimated ejection fraction of 65%. There are no regional wall motion abnormalities. The left ventricular cavity size is normal. Spectral Doppler shows a normal pattern of left ventricular diastolic filling. Mild LVH. Left Atrium: The left atrium is mildly dilated. Mildly dilated right atrium. Right Ventricle: The right ventricle is normal in size. There is normal right ventricular global systolic function. Right Atrium: The right atrium is mildly dilated. Mildly dilated left atrium. Aortic Valve: The aortic valve appears structurally normal. There is no evidence of aortic valve regurgitation. The peak instantaneous gradient of the aortic valve is 81.7 mmHg. The mean gradient of the aortic valve is 37.0 mmHg. The aortic valve is bioprosthetic. Peak gradient is 82 mmHg. Mean gradient is 36 mmHg. Calculated aortic valve area is 0.8 cm??? there is finding consistent with severely stenotic bioprosthetic aortic valve. Mitral Valve: The mitral valve is mildly thickened. There is mild to moderate mitral valve regurgitation. Tricuspid Valve: The tricuspid valve is structurally normal. There is trace tricuspid regurgitation. The Doppler estimated RVSP is within normal limits at 25.8 mmHg. Pulmonic Valve: The pulmonic valve is structurally normal. There is no indication of pulmonic valve regurgitation. Pericardium: There is no pericardial effusion noted. Aorta: The aortic root is normal. CONCLUSIONS: 1. Left ventricular systolic function is normal with a 65% estimated ejection fraction. 2. Mild LVH. 3. Mildly dilated right atrium. 4. Mildly dilated left atrium. 5. Mild to moderate mitral valve regurgitation. 6. RVSP within normal limits. 7. The aortic valve is bioprosthetic. Peak gradient is 82 mmHg. Mean gradient is 36 mmHg. Calculated aortic valve area is 0.8 cm??? there is finding consistent with severely stenotic bioprosthetic aortic valve. 8. Consider transesophageal echocardiogram for better assessment of the bioprosthetic aortic valve stenosis. 9. When compared to previous study the peak gradient across the bioprosthetic valve has increased from 69 to 84 mmHg. QUANTITATIVE DATA SUMMARY: 2D MEASUREMENTS: Normal Ranges: Ao Root d: 3.00 cm (2.0-3.7cm) LAs: 3.10 cm (2.7-4.0cm) RVIDd: 2.27 cm (0.9-3.6cm) IVSd: 1.11 cm (0.6-1.1cm) LVPWd: 0.85 cm (0.6-1.1cm) LVIDd: 4.12 cm (3.9-5.9cm) LVIDs: 2.78 cm LV Mass Index: 79.5 g/m2 LV % FS 32.5 % LV SYSTOLIC FUNCTION BY 2D PLANIMETRY (MOD): Normal Ranges: EF-A4C View: 64.7 % (>=55%) LV DIASTOLIC FUNCTION: Normal Ranges: MV Peak E: 1.02 m/s (0.7-1.2 m/s) MV Peak A: 0.89 m/s (0.42-0.7 m/s) E/A Ratio: 1.14 (1.0-2.2) MV lateral e' 0.09 m/s MV medial e' 0.06 m/s E/e' Ratio: 11.20 (<8.0) MITRAL VALVE: Normal Ranges: MV Vmax: 1.14 m/s (<=1.3m/s) MV peak P.2 mmHg (<5mmHg) MV mean P.0 mmHg (<48mmHg) MITRAL INSUFFICIENCY: Normal Ranges: MR Vmax: 591.00 cm/s dP/dt: 3029 mmHg/s (>1200mmHg/sec) AORTIC VALVE: Normal Ranges: AoV Vmax: 4.52 m/s (<=1.7m/s) AoV Peak P.7 mmHg (<20mmHg) AoV Mean P.0 mmHg (1.7-11.5mmHg) LVOT Max Ramiro: 1.05 m/s (<=1.1m/s) AoV VTI: 96.50 cm (18-25cm) LVOT VTI: 23.20 cm AoV Area, VTI: 0.83 cm2 (2.5-5.5cm2) AoV Area,Vmax: 0.80 cm2 (2.5-4.5cm2) AoV Dimensionless Index: 0.24 AORTIC INSUFFICIENCY: AI Vmax: 2.64 m/s AI Half-time: 706 msec AI Decel Rate: 116.50 cm/s2 TRICUSPID VALVE/RVSP: Normal Ranges: Peak TR Velocity: 2.39 m/s RV Syst Pressure: 25.8 mmHg (< 30mmHg) PULMONIC VALVE: Normal Ranges: PV Max Ramiro: 0.6 m/s (0.6-0.9m/s) PV Max P.3 mmHg [id number] Rolanda Sparks MD Electronically signed on 02/28/2024 at 12:17:00 PM Final [facility] CNOVSPon 12-15-2023 CNOVSP Visit (SP) Office (G YNML) -- FLOR HERNANDEZ ([id number]) 1955 F Date Time Provider Department 12/15/23 11:00 AM CHELLY ONEAL GYNML During your visit today, we recorded the following information about you: Temperature Pulse Respiration Blood pressure 97.8 degrees 63/minute 15/minute 155/81 Weight 59.9 kg Chelly Oneal MD 12/16/2023 3:07 PM Signed DATE OF SERVICE: 12/15/2023 PROBLEM: Flor Hernandez presents for MRI review SUBJECTIVE/HPI: Ms. Hernandez is a 68 year old female G0 With a PMH of CAD, HPV, HTN, pyloric stenosis, aortic stenosis/aortic valve replacement 2017, hypothyroid, left nephrectomy, and osteoporosis. She presented to Dr. Aidan Little 08/01/2023 with c/o 4 episodes of minute spotting since Nov 2022. Pelvic US revealed ?thickened endometrial stripe. She underwent EUA on 10/21/2023. Since spring 2022 has had 5 episodes of minor spotting. Has had one prior LEEP. No pathology available, unable to pass through stenotic os. History of bilateral renal stenosis, had hypertension, left kidney was removed. In the 's had right kidney moved to front of abdomen. History of pyloric stenosis as an that was repaired. 11/18/2023 Exam under anesthesia, hysteroscopy INTRAOPERATIVE FINDINGS: Exam under anesthesia revealed atrophic upper vagina which required manual dilation at upper vagina to expose the cervix. Cervical os was severely stenotic. Attempt at hysteroscopy was completed however we did not clearly identify a uterine cavity therefore procedure was aborted due to concern for uterine perforation into the posterior cul de sac. No bleeding or excessive fluid deficit was noted. Bladder was drained with clear urine. IMAGIN11/30/23 MRI FEMALE PELVIS IMPRESSION: No endometrial mass. HISTORIES: PAST GYNECOLOGIC HISTORY: OB History G0 Hormonal contraceptives: Yes, OCP How long: approx. 4 years. HRT use: No. History of abnormal pap: Yes, (2017) ASCUS/HPV pos, (2018) ASC-H, (2019) ASCUS/HPV neg, (02/2020) LGSIL, (07/01/20) ASCUS HPV neg, (01/07/21) LGSIL Last pap: 11/14/23 negative Last HPV: 11/14/23 negative Last mammogram: October 2023 Last colonoscopy: 2020 PAST SURGICAL HISTORY Procedure Laterality Date BLEPHAROPLASTY UPPER EYELID W/EXCESSIVE SKIN PAST SURGICAL HISTORY OF 1974 left nephrectomy PAST SURGICAL HISTORY OF 1985 repair of right kidney PAST SURGICAL HISTORY OF 1999 salivary gland removed d/t sarcoidosis(?) PAST SURGICAL HISTORY OF 1998 breast augmentation PAST SURGICAL HISTORY OF surgery for pyloric stnosis as REPLACEMENT, AORTIC VALVE, WITH CAR 2017 Upper hemistemotomy, replacmement of aoritc valve #21 inspiris valve PAST MEDICAL HISTORY Diagnosis Date Aortic stenosis Hard to intubate High cholesterol Hypothyroid Kidney disease acute kidney injury, Left nephrectomy Osteoporosis Renal artery stenosis (HCC) Bilateral. Left Nephrectomy as result FAMILY HISTORY Problem Relation Age of Onset Hypertension Mother Diabetes Mother Breast Cancer Mother No Known Problems Father Hypertension Brother Stroke Maternal Grandmother Colon Cancer Maternal Grandmother SOCIAL HISTORY Social History Tobacco Use Smoking status: Never Smokeless tobacco: Never Substance Use Topics Alcohol use: Yes Comment: very occasional Drug use: No Occupation: retired Marital Status: SUBJECTIVE/INTERVAL HISTORY: Flor Hernandez reports that she feels well. No vaginal bleeding or discharge. No shortness of breath, cough, or chest pain. No abdominal pain, nausea, vomiting, diarrhea, or constipation. No dysuria, gross hematuria, urinary frequency, urinary urgency, or incontinence. Her ECOG performance status is zero (fully active, able to carry on all pre-disease performance without restriction). OBJECTIVE: VITALS: BP 155/81 Pulse 63 Temp 36.6 ?C (97.8 ?F) Resp 15 Wt 59.9 kg (132 lb) LMP (LMP Unknown) SpO2 95% BMI 23.38 kg/m? GENERAL: alert, oriented, pleasant, and cooperative. ASSESSMENT: 68 y.o female presents for evaluation of post menopausal bleeding and inability to obtain endometrial sampling with recent DANDC. 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 Patient has a complex medical and surgical history as outlined below. NOW s/p EUA, hysteroscopy 11/18/23. Hysteroscopy was attempted but ultimately aborted due to inability to identify a uterine cavity and concern for uterine perforation into the posterior cul de sac due to severe cervical stenosis. Patient presents today for MRI review. Post menopausal bleeding I reviewed MRI images which show endometrial fluid collection but the lining itself appears thin. I explained that the uterine fluid is likely due to her cervical stenosis with prior LEEP procedure. There is no mass seen which is reassuring. I discussed my low concern for uterine pathology and (more content not included)... [facility] ALLIED HEALTHon 11-30-2023 [facility] HNO ID: [id number] Author: RONNIE CONTRERAS MRI Tech Service: Radiology Author Type: Historian Dramatic Arts Type: Allied Health Filed: 11/30/2023 09:32 Note Text: Radiology Service Progress Note DATE OF SERVICE: November 30, 2023 TIME: 9:31 AM PATIENT IDENTITY VERIFICATION COMPLETED USING TWO (2) STANDARD IDENTIFIERS: Name and Date of confirmed by patient verbally and Name and Date of confirmed by identification band. FALL SCREENING: Has the patient had 2 falls in the last year or 1 fall with injury or currently using an Ambulatory Assistive Device (Walker, Cane, Wheelchair, Crutches, etc.)? No PATIENT GENDER DATA: Female. status: : No status: NO. PATIENT RELEVANT IMPLANT DATA REVIEWED: Yes ALLERGIES: Reviewed and unchanged CONTRAST ALLERGY: NO. EXAM: MRI - CONTRAST TYPE: GROUP II PERIPHERAL IV DATA: Ambulatory: A peripheral IV was started in the Right antecubital site with a Butterfly: 23 gauge. RADIOLOGY DEPARTMENT: MR; Exam(s) Completed: Body: Female Pelvis SIGNATURE: SOLEDAD Garduno PATIENT NAME: Flor Hernandez DATE: November 30, 2023 TIME: 9:31 AM [facility] MR Pelvis WO and W contrast Josy 11-30-2023 IMPRESSION: No endometrial mass. Home Health Provider: [facility] Transcribe Date/Time: Nov 30 2023 9:39A Dictated by : TORSTEN RAMOS MD This examination was interpreted and the report reviewed and electronically signed by: TORSTEN RAMOS MD on Nov 30 2023 9:59AM [facility] RADIOLOGY * * *Final Report* * * DATE OF EXAM: Nov 30 2023 9:32AM [facility] 0713 - MRI FEMALE PELVIS WO/W IVCON / PROCEDURE REASON: PMB (postmenopausal bleeding) * * * * Physician Interpretation * * * * MRI OF THE FEMALE PELVIS WITHOUT AND WITH CONTRAST CLINICAL HISTORY: PMB (postmenopausal bleeding) TECHNIQUE: Magnet: 1.5T scanner. Coil: Torso phased array Sequences / planes: T2: axial, sagittal, coronal and axial oblique High resolution T2: sagittal HASTE: coronal large field of view T1 in and out of phase T1 3-D GRE with and without contrast: axial, sagittal Diffusion weighted imaging with ADC mapping: axial Contrast: Contrast Media 1: IV administration of 13 ml of Dotarem COMPARISON: None. RESULT: Uterus: Size: 5.0 x 2.8 x 3.6 cm (CC x AP x transverse) Orientation: Anteverted Configuration: Conventional Endometrium: Maximum width measures 4 mm. No endometrial lesion. Junctional zone: Maximum thickness: 4 mm. Homogeneous T2 hypointense signal. Cervix: Normal Leiomyomas: None. Ovaries: - Right ovary: Right ovary normal in size and appearance for the patient's age. 0.4 cm unilocular right ovarian cyst is considered benign. - Left ovary: Left ovary normal in size and appearance for patient's age. No mass. Endometriosis: None Pelvis free fluid: None Lymph nodes: No lymph nodes enlarged by size criteria Bones: Normal marrow signal. Right kidney located in the right lower quadrant. Probable benign renal cysts. Left kidney absent. [facility] Provider, [facility] - 11/30/2023 * * *Final Report* * * DATE OF EXAM: Nov 30 2023 9:32AM [facility] 0713 - MRI FEMALE PELVIS WO/W IVCON / PROCEDURE REASON: PMB (postmenopausal bleeding) * * * * Physician Interpretation * * * * MRI OF THE FEMALE PELVIS WITHOUT AND WITH CONTRAST CLINICAL HISTORY: PMB (postmenopausal bleeding) TECHNIQUE: Magnet: 1.5T scanner. Coil: Torso phased array Sequences / planes: T2: axial, sagittal, coronal and axial oblique High resolution T2: sagittal HASTE: coronal large field of view T1 in and out of phase T1 3-D GRE with and without contrast: axial, sagittal Diffusion weighted imaging with ADC mapping: axial Contrast: Contrast Media 1: IV administration of 13 ml of Dotarem COMPARISON: None. RESULT: Uterus: Size: 5.0 x 2.8 x 3.6 cm (CC x AP x transverse) Orientation: Anteverted Configuration: Conventional Endometrium: Maximum width measures 4 mm. No endometrial lesion. Junctional zone: Maximum thickness: 4 mm. Homogeneous T2 hypointense signal. Cervix: Normal Leiomyomas: None. Ovaries: - Right ovary: Right ovary normal in size and appearance for the patient's age. 0.4 cm unilocular right ovarian cyst is considered benign. - Left ovary: Left ovary normal in size and appearance for patient's age. No mass. Endometriosis: None Pelvis free fluid: None Lymph nodes: No lymph nodes enlarged by size criteria Bones: Normal marrow signal. Right kidney located in the right lower quadrant. Probable benign renal cysts. Left kidney absent. IMPRESSION IMPRESSION: No endometrial mass. Home Health Provider: PSCB Transcribe Date/Time: Nov 30 2023 9:39A Dictated by : TORSTEN RAMOS MD This examination was interpreted and the report reviewed and electronically signed by: TORSTEN RAMOS MD on Nov 30 2023 9:59AM [facility] Radiology Study observation (narrative) [facility] MR Pelvis WO and W contrast IVOrdered By: Ccf Provider on 11-30-2023 [facility] MRI FEMALE PELVIS WO/W IVCON on 11-30-2023 MRI FEMALE PELVIS WO/W IVCON * * *Final Report* * * DATE OF EXAM: Nov 30 2023 9:32AM [facility] 0713 - MRI FEMALE PELVIS WO/W IVCON / PROCEDURE REASON: PMB (postmenopausal bleeding) * * * * Physician Interpretation * * * * MRI OF THE FEMALE PELVIS WITHOUT AND WITH CONTRAST CLINICAL HISTORY: PMB (postmenopausal bleeding) TECHNIQUE: Magnet: 1.5T scanner. Coil: Torso phased array Sequences / planes: T2: axial, sagittal, coronal and axial oblique High resolution T2: sagittal HASTE: coronal large field of view T1 in and out of phase T1 3-D GRE with and without contrast: axial, sagittal Diffusion weighted imaging with ADC mapping: axial Contrast: Contrast Media 1: IV administration of 13 ml of Dotarem COMPARISON: None. RESULT: Uterus: Size: 5.0 x 2.8 x 3.6 cm (CC x AP x transverse) Orientation: Anteverted Configuration: Conventional Endometrium: Maximum width measures 4 mm. No endometrial lesion. Junctional zone: Maximum thickness: 4 mm. Homogeneous T2 hypointense signal. Cervix: Normal Leiomyomas: None. Ovaries: - Right ovary: Right ovary normal in size and appearance for the patient's age. 0.4 cm unilocular right ovarian cyst is considered benign. - Left ovary: Left ovary normal in size and appearance for patient's age. No mass. Endometriosis: None Pelvis free fluid: None Lymph nodes: No lymph nodes enlarged by size criteria Bones: Normal marrow signal. Right kidney located in the right lower quadrant. Probable benign renal cysts. Left kidney absent. IMPRESSION: No endometrial mass. Home Health Provider: [facility] Transcribe Date/Time: Nov 30 2023 9:39A Dictated by : TORSTEN RAMOS MD This examination was interpreted and the report reviewed and electronically signed by: TORSETN RAMOS MD on Nov 30 2023 9:59AM EST [id number] Normal [facility] Bacteria Ur Culton Bacteria identified Cx Nom (U) ORGANISM ID: 1 >=100,000 CFU/ml Escherichia coli ORGANISM ID: 1 (ESCHERICHIA COLI) ANTIBIOTIC INTERPRETATION DIANA STATUS REFERENCE RANGE Ampicillin S <=2 F Susceptible <=8 , Intermediate >8 , Resistant >16 Cefazolin S <=4 F Susceptible 0-16 , Intermediate <0 or >16 , Resistant >16 For uncomplicated urinary tract infections, cefazolin results can be used to predict susceptibility or resistance to cephalexin. Ceftriaxone S <=1 F Susceptible <=1 , Intermediate >1 , Resistant >=4 Cefepime S <=1 F Susceptible <=2 , Susceptible-Dose Dependent >2 , Resistant >=16 Ertapenem S <=0.5 F Susceptible <=0.5 , Intermediate >.5 , Resistant >1 Meropenem S <=0.25 F Susceptible <=1 , Intermediate >1 , Resistant >2 Ampicillin/Sulbact S <=2 F Susceptible <=8 , Intermediate >8 , Resistant >16 Piperacillin/Tazobac S <=4 F Susceptible <=16 , Intermediate >16 , Resistant >64 Gentamicin S <=1 F Susceptible <=4 , Intermediate >4 , Resistant >8 Tobramycin S <=1 F Susceptible <=4 , Intermediate >4 , Resistant >8 Trimeth sulfameth S <=20 F Susceptible <=40 , Resistant >40 Ciprofloxacin S <=0.25 F Susceptible <0.5 , Intermediate >=.5 , Resistant >=1 Nitrofurantoin S <=16 F Susceptible <=32 , Intermediate >32 , Resistant >64 Abnormal [facility] Comment on above: Performed By: #### 5 8410-2 #### [facility] [id number] [address] [place] [address] [place] CNPLorelei 11-21-2023 TREVINN Telephone (LADONNA) -- FLOR HERNANDEZ ([id number]) 1955 F Date Time Provider Department 11/21/23 JIL FISCHER During your visit today, we recorded the following information about you: Jil Fischer RN 11/21/2023 9:54 AM Signed Patient had attempted Exam under anesthesia hysteroscopy with Dr Oneal on 11/18/23. November 21, 2023 9:50 AM Patient called for post op follow up assessment. Reports she is doing Good, except I think I have a UTI Pain: Patient rates pain 0 on a scale of 0-10. 0 being no pain and 10 being worst pain imaginable. Diet: Patient is able tolerate fluids and normal diet. Bowel Movement: Patient is able to pass gas and has had a bowel movement. Voiding: Patient is able to void -Reports urine is cloudy and smells, having frequency Vaginal Discharge: Denies any vaginal bleeding Medication: Denies questions or concerns about medication. Post op restrictions reviewed with patient including - activity- no heavy lifting, on pelvic rest - reviewed signs and symptoms to notify office including signs of infection, fever, heavy vaginal bleeding. - she is aware of MRI on 11/30/23, and post op appointment with Doctor Kimmy on 12/19/23, unless she hears from this office otherwise Patient verbalized understanding and denies further questions at this time. Understands to call the office with further concerns/questions. WALT Bowser Amy, RN 11/21/2023 11:56 AM Signed Patient is aware that UCx order has been placed. She will submit this afternoon. Allergies As of Date: 11/21/2023 Noted Allergy Reaction APRESOLINE (HYDRALAZINE HCL) 05/01/2018 14 - Other: See Comments Comments: Kidney injury - renal stenosis YONG URIBE 10/16/2019 9 - Itching Date Reviewed: 11/18/2023 Reviewed by: Mary Beth Roach, WALT - Fully Assessed Reason for Visit: Post Op Call [[id number]] Prescriptions as of 11/21/2023 - iv contrast (will be provided with radiology test) MRI Female Pelvis Inject, intravenously, once for 1 dose. No IV access, insert saline lock prior to the beginning of sedation, infusion, injection of imaging exam. Discontinue saline lock post exam. If Pt has a central line or IVAD, may access for administration according to line specific nursing protocol. Once exam is complete flush line and de-access according to line specific nursing protocol in the MR contrast administration guidelines link. - Surgical Lubricant Jelly gel For MRI Female Pelvis, MRI department to provide. Administer intra-vaginal Surgilube immediately prior the MRI procedure (total amount to patient toleranace). - atorvastatin (LIPITOR) 10 mg tablet Take 10 mg by mouth once daily. - folic acid 1 mg tablet Take 1 mg by mouth two times a day. - CCGAEL-1-JVTBRXHD, BULK, MISC 200 mg once daily. - coenzyme Q10 (CO Q-10) 100 mg cap capsule Take 100 mg by mouth once daily. - Ibandronate 150 mg tablet Take 150 mg by mouth once every month. - levothyroxine (SYNTHROID) 75 mcg tablet Take 88 mcg by mouth daily before breakfast. 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] 05/01/2018 05/09/2018 Hypothyroidism [E03.9] 05/01/2018 Pre-operative cardiovascular examination [Z01.8*05/01/2018 05/09/2018 H/O unilateral nephrectomy [Z90.5] 05/01/2018 05/09/2018 Sarcoidosis (HCC) [D86.9] 05/01/2018 05/09/2018 Renal artery stenosis (HCC) [I70.1] 05/01/2018 05/09/2018 Discharge planning issues [Z02.9] 05/02/2018 Preop testing [Z01.818] 05/02/2018 05/09/2018 Difficult airway for intubation [T88.4XXA] 05/05/2018 Aortic stenosis [I35.0] 05/05/2018 05/09/2018 On mechanically assisted ventilation (HCC) [Z99*05/05/2018 05/06/2018 Post-op pain [G89.18] 05/05/2018 05/09/2018 Hydropneumothorax [J94.8] 05/06/2018 Fluid overload [E87.70] 05/07/2018 05/09/2018 Atelectasis [J98.11] 05/07/2018 05/09/2018 Acute blood loss anemia [D62] 05/07/2018 05/09/2018 Postoperative atrial fibrillation (HCC) [I97.89*05/08/2018 Transition of care performed with sharing of cl*05/09/2018 Aortic stenosis [I35.0] 11/14/2023 High cholesterol [E78.00] 11/14/2023 Renal artery stenosis (HCC) [I70.1] 11/14/2023 Single kidney [Z90.5] 11/14/2023 Encounter Status:Closed by JIL FISCHER on 11/21/23 [facility] Urinalysis complete panel (U )on 11-21-2023 BACTERIA UL >9821 High Negative [facility] Comment on above: Order Comment: Speci men Type: BLOOD SPECIMEN Ordering Facility: [facility] Address: [address] [place] [address] Performed By: #### 5 8410-2 #### [facility] [id number] [address] [place] [address] [place] Bilirubin Ql (U) Negative Normal Negative [facility] Comment on above: Order Comment: Speci men Type: BLOOD SPECIMEN Ordering Facility: [facility] Address: [address] [place] [address] Performed By: #### 5 8410-2 #### [facility] [id number] [address] [place] [address] [place] Clarity (Unsp spec) Clear Normal Clear [facility] Comment on above: Order Comment: Speci men Type: BLOOD SPECIMEN Ordering Facility: [facility] Address: [address] [place] [address] Performed By: #### 5 8410-2 #### [facility] [id number] [address] [place] [address] [place] Color (U) Yellow Normal Yellow [facility] Comment on above: Order Comment: Speci men Type: BLOOD SPECIMEN Ordering Facility: [facility] Address: [address] [place] [address] Performed By: #### 5 8410-2 #### [facility] [id number] [address] [place] [address] [place] Epithelial cells LM.HPF (Urine sed) [#/Area] None Seen Normal [facility] Comment on above: Order Comment: Speci men Type: BLOOD SPECIMEN Ordering Facility: [facility] Address: [address] [place] [address] Performed By: #### 5 8410-2 #### [facility] [id number] [address] [place] [address] [place] Glucose Test strip (U) [Mass/Vol] Negative Normal Negative [facility] Comment on above: Order Comment: Speci men Type: BLOOD SPECIMEN Ordering Facility: [facility] Address: [address] [place] [address] Performed By: #### 5 8410-2 #### [facility] [id number] [address] [place] [address] [place] Hemoglobin Ql (U) Negative Normal Negative [facility] Comment on above: Order Comment: Speci men Type: BLOOD SPECIMEN Ordering Facility: [facility] Address: [address] [place] [address] Performed By: #### 5 8410-2 #### [facility] [place] [id number] [place] [address] [place] Hyaline casts (Urine sed) [#/Area] 1-3 /LPF Abnormal 0 /LPF [facility] Comment on above: Order Comment: Speci men Type: BLOOD SPECIMEN Ordering Facility: [facility] Address: [address] [place] [address] Performed By: #### 5 8410-2 #### [facility] [id number] [address] [place] [address] [place] Ketones Ql (U) Negative Normal Negative [facility] Comment on above: Order Comment: Speci men Type: BLOOD SPECIMEN Ordering Facility: [facility] Address: [address] [place] [address] Performed By: #### 5 8410-2 #### [facility] [id number] [address] [place] [address] [place] Leukocyte esterase Test strip Ql (U) 2+ Abnormal Negative [facility] Comment on above: Order Comment: Speci men Type: BLOOD SPECIMEN Ordering Facility: [facility] Address: [address] [place] [address] Performed By: #### 5 8410-2 #### [facility] [id number] [address] [place] [address] [place] Nitrite Ql (U) Positive Abnormal Negative [facility] Comment on above: Order Comment: Speci men Type: BLOOD SPECIMEN Ordering Facility: [facility] Address: [address] [place] [address] Performed By: #### 5 8410-2 #### [facility] [id number] [address] [place] [address] [place] pH (U) 5.5 [pH] Normal <8.5 [facility] Comment on above: Order Comment: Speci men Type: BLOOD SPECIMEN Ordering Facility: [facility] Address: [address] [place] [address] Performed By: #### 5 8410-2 #### [facility] [id number] [place] [address] [place] Protein (U) [Mass/Vol] 1+ Abnormal Negative [facility] Comment on above: Order Comment: Speci men Type: BLOOD SPECIMEN Ordering Facility: [facility] Address: [address] [place] [address] Performed By: #### 5 8410-2 #### [facility] [id number] [address] [place] [address] [place] RBC LM.HPF (Urine sed) [#/Area] 0-2 /HPF Normal 0-2 /HPF [facility] Comment on above: Order Comment: Speci men Type: BLOOD SPECIMEN Ordering Facility: [facility] Address: [address] [place] [address] Performed By: #### 5 8410-2 #### [facility] [id number] [address] [place] [address] [place] Specific gravity (U) [Rel density] 1.017 Normal 1.005-1.03 0 [facility] Comment on above: Order Comment: Speci men Type: BLOOD SPECIMEN Ordering Facility: [facility] Address: [address] [place] [address] Performed By: #### 5 8410-2 #### [facility] [id number] [address] [place] [address] [place] Urobilinogen Ql (U) 0.2 EU/dL Normal 0.2-1.0 EU/dL [facility] Comment on above: Order Comment: Speci men Type: BLOOD SPECIMEN Ordering Facility: [facility] Address: [address] [place] [address] Performed By: #### 5 8410-2 #### [facility] [id number] [address] [place] [address] [place] WBC LM.HPF (Urine sed) [#/Area] /[HPF] Abnormal 0-5 /HPF [facility] Comment on above: Order Comment: Speci men Type: BLOOD SPECIMEN Ordering Facility: [facility] Address: [address] [place] [address] Performed By: #### 5 8410-2 #### [facility] [id number] [address] [place] [address] [place] ANES POSTPROC EVALon 024 ANES POSTPROC EVAL HNO ID: [id number] Author: MIKE SNYDER DO Service: Anesthesiology Author Type: Anesthesiologist Type: Anesthesia Postprocedure Evaluation Filed: 11/18/2023 13:38 Note Text: POST ANESTHESIA EVALUATION NOTE : 1955 Procedure Summary Date: 11/18/23 Room / Location: OR04 / [facility] OR Anesthesia Start: 1101 Anesthesia Stop: 1203 Procedure: HYSTEROSCOPY with exam under anesthesia no samples (Uterus) Diagnosis: PMB (postmenopausal bleeding) Preop examination (PMB (postmenopausal bleeding) [N95.0]) (Preop examination [Z01.818]) Surgeons: Chelly Oneal MD Responsible Provider: Mike Snyder DO Anesthesia Type: general ASA Status: 4 Anesthesia Type: general Airway Type: LMA Last Vitals Vitals Value Taken Time BP 115/71 11/18/23 1330 Temp 36.8 ?C (98.2 ?F) 11/18/23 1200 Pulse 61 11/18/23 1338 Resp 12 11/18/23 1338 SpO2 92 % 11/18/23 1338 Vitals shown include unfiled device data. Post Anesthesia Patient Status Patient Evaluation: PACU. PACU/ICU Patient Condition: stable. Anticipated Disposition: phase 2 then home. Neurological Status: aware and responsive. Pulmonary Status: breathing comfortably on room air Airway Control: returned to baseline unsupported. Cardiovascular Status: stable. Pain Management: clinically adequate - multimodal analgesia pain management approach Postoperative Hydration: acceptable. Intraoperative Events: no significant anesthesia events Post Operative Nausea/Vomiting Status: no significant post operative nausea or vomiting Recommendation: continue current plan of care. Anesthesia Observations No Documentation SIGNATURE: Mike Snyder DO PATIENT NAME: Flor Hernandez DATE: November 18, 2023 TIME: 1:38 PM CSN: [id number] [facility] ANES PRE-OPon 11-18-2023 ANES PRE-OP HNO ID: [id number] Author: MIKE SNYDER DO Service: Anesthesiology Author Type: Anesthesiologist Type: Anesthesia Preprocedure Evaluation Filed: 11/18/2023 10:52 Note Text: ANESTHESIOLOGY DAY OF SURGERY NOTE : 1955 Procedure Information Date/Time: 11/18/23 1145 Procedure: HYSTEROSCOPY SURGICAL W/SAMPLING BIOPSY OF ENDOMETRIUM AND/OR POLYPECTOMY W/ OR W/O DANDC (TRUCLEAR) Location: OR / OR Surgeons: Chelly Oneal MD Estimated body mass index is 25.03 kg/m? as calculated from the following: Height as of 11/14/23: 160 cm (5' 3 ). Weight as of 11/14/23: 64.1 kg (141 lb 5 oz). Most recent hematocrit and potassium results: Hematocrit 39.6 11/14/2023 Potassium 4.0 11/14/2023 Relevant Problems CARDIO (+) Aortic stenosis (+) Postoperative atrial fibrillation (HCC) (+) Renal artery stenosis (HCC) ENDO (+) Hypothyroidism I - PHYSICAL EVALUATION AIRWAY Patient intubated: No. Tracheostomy tube not present Mallampati: II. TM distance: >3 FB. Neck ROM: full ROM without neurological symptoms. Mouth opening: adequate. Short neck: no. Thick neck: no DENTAL Dental findings: teeth intact. II - ANESTHESIA PLAN ASA Score: 4 Anesthetic Plan: general Airway type: LMA Beta Jhon Monitoring Plan Monitoring plan: standard ASA. Post Procedure Analgesic Plan Postoperative analgesic plan: per surgical service. Informed Consent Anesthetic risks, benefits, alternatives, personnel and consent discussed: yes. Patient / Responsible Libertarian agrees to proceed: yes Patient / Surrogate agrees to blood products: blood products not planned Potential Anesthesia issues that may suggest increased risk of complications or contraindication to planned procedure: potential difficult intubation. Vitals Value Taken Time BP 145/64 11/18/23 1033 Pulse 65 11/18/23 1033 Resp 16 11/18/23 1033 Temp 36.5 ?C (97.7 ?F) 11/18/23 1033 SpO2 98 % 11/18/23 1033 Facility-Administered Medications as of 11/18/2023 Medication Dose Route Frequency - lidocaine (PF) 10 mg/mL (1 %) 1-2 mg injection (XYLOCAINE) 0.1-0.2 mL INTRADERMAL PRN - lactated ringers iv infusion 5-30 mL/hr INTRAVENOUS CONTINUOUS - NaCl 0.9% iv flush bag 20 mL INTRAVENOUS PRN - [COMPLETED] acetaminophen 1,000 mg tab(s) (TYLENOL) 1,000 mg ORAL ONCE - [COMPLETED] promethazine 12.5 mg tab(s) (PHENERGAN) 12.5 mg ORAL NOW Outpatient Medications as of 11/18/2023 Medication Sig - folic acid 1 mg tablet Take 1 mg by mouth two times a day. - BOOWBP-4-ULBAKLRD, BULK, MISC 200 mg once daily. - coenzyme Q10 (CO Q-10) 100 mg cap capsule Take 100 mg by mouth once daily. - levothyroxine (SYNTHROID) 75 mcg tablet Take 88 mcg by mouth daily before breakfast. - Ibandronate 150 mg tablet Take 150 mg by mouth once every month. I have interviewed and examined the patient. I have reviewed the medical record and/or the pre-anesthesia evaluation, pertinent labs, and test results. This contains updated information obtained within 48 hours of Surgery/Procedure. SIGNATURE: Mike Snyder DO PATIENT NAME: Flor Hernandez DATE: November 18, 2023 TIME: 10:52 AM CSN: [id number] [facility] NURSING PROGon 11-18-2023 NURSING PROG HNO ID: [id number] Author: MARY BETH RAOCH RN Service: Nursing Author Type: Registered Nurse Type: Nursing Progress Note Filed: 11/18/2023 14:27 Note Text: PATIENT EDUCATION TOPIC: PROCEDURE / SURGERY: Post-op Teaching: Med Administration, Symptom Management, and Wound Care PATIENT NAME: Flor Hernandez PATIENT LOCATION: [facility] OR POOL/[facility] OR POOL READINESS TO LEARN COGNITIVE ABILITY: Alert and oriented MOTIVATION TO LEARN: Interested FAMILY SUPPORT: High - Very involved in pt care INSTRUCTION PROVIDED TO: Patient, spouse PATIENT LEARNS BEST BY: Individual Instruction FACTORS AFFECTING LEARNING: None PHYSICAL LIMITATIONS AFFECTING LEARNING: None LEARNING RESPONSE DIAGNOSIS: ADULT: Well Adult PATIENT/FAMILY RESPONSE: Verbalizes understanding of: POST-OPERATIVE INSTRUCTIONS-Correct actions to take to reduce postoperative complications METHOD OF INSTRUCTION: Individual instruction FOLLOW-UP PLAN: Complete - No need for follow-up INSTRUCTIONAL AIDS USED: NA SUPPLEMENTAL MATERIAL PROVIDED TO PATIENT: None REFERRAL (RECOMMENDATION): None Electronically Signed By: Mary Beth Roach [facility] NURSING PROG HNO ID: [id number] Author: SILVESTRE CROCKER RN Service: Nursing Author Type: Registered Nurse Type: Nursing Progress Note Filed: 11/18/2023 10:16 Note Text: PATIENT EDUCATION TOPIC: PROCEDURE / SURGERY: Pre-op Teaching: Logistics Protocols Complication Prevention PATIENT NAME: Flor Hernandez PATIENT LOCATION: [facility] OR POOL/[facility] OR POOL READINESS TO LEARN COGNITIVE ABILITY: Alert and oriented MOTIVATION TO LEARN: Interested FAMILY SUPPORT: None - Unavailable/disinterested INSTRUCTION PROVIDED TO: Patient PATIENT LEARNS BEST BY: Individual Instruction FACTORS AFFECTING LEARNING: None PHYSICAL LIMITATIONS AFFECTING LEARNING: None LEARNING RESPONSE DIAGNOSIS: ADULT: Well Adult PATIENT/FAMILY RESPONSE: Verbalizes understanding of: PRE-OPERATIVE INSTRUCTIONS-Correct action to take to follow pre-operative instructions METHOD OF INSTRUCTION: Individual instruction FOLLOW-UP PLAN: Complete - No need for follow-up Patient instructed to call with any further issues Follow-up with Primary Care INSTRUCTIONAL AIDS USED: NA SUPPLEMENTAL MATERIAL PROVIDED TO PATIENT: None REFERRAL (RECOMMENDATION): None Electronically Signed By: Silvestre Crocker [facility] OPERATIVE NOon 11-18-2023 OPERATIVE NO HNO ID: [id number] Author: CHELLY ONEAL MD Service: Gynecology Oncology Author Type: Physician Type: Operative Report Filed: 11/18/2023 11:55 Note Text: OPERATIVE/PROCEDURE REPORT LOG ID: [id number] SURGERY/PROCEDURE DATE: 11/18/2023 INCISION/PROCEDURE START TIME: 11:18 AM INCISION CLOSE/PROCEDURE END TIME: 11:49 AM SURGEON(S)/PROCEDURALIST(S ) AND [employer]AT(S): Surgeon(s) and Role: * Chelly Oneal MD - Primary * Kelsi Aleman MD - Resident - Assisting * Tanya Carranza MD - Resident - Assisting No Additional Staff SURGERY/PROCEDURE(S): Exam under anesthesia hysteroscopy ANESTHESIA: General INDICATION FOR PROCEDURE: 68 y.o female with post menopausal bleeding presents for surgical evaluation of post menopausal bleeding. INTRAOPERATIVE FINDINGS: Exam under anesthesia revealed atrophic upper vagina which required manual dilation at upper vagina to expose the cervix. Cervical os was severely stenotic. Attempt at hysteroscopy was completed however we did not clearly identify a uterine cavity therefore procedure was aborted due to concern for uterine perforation into the posterior cul de sac. No bleeding or excessive fluid deficit was noted. Bladder was drained with clear urine. SURGERY/PROCEDURE DETAILS: After informed consent was obtained patient was taken to the operating room where she was placed under general anesthesia. She was positioned in dorsal lithotomy with arms out. Care was taken to avoid excessive hyperflexion or extension of legs and hips, lateral leg was padded to avoid excessive pressure. Patient was prepped and draped in a normal sterile fashion. Time out was performed noting correct patient and procedure. SCDs were in place for DVT prophylaxis and no prophylactic antibiotics were indicated. A speculum was placed into the vaginal revealing a findings as noted above. Upper vaginal atrophic scarring was taken down manually to expose the small atrophic cervix. The cervical os was not easily identifiable. A dimple at the center of the cervix was gently dilated and a diagnostic hysteroscopy was used to enter the cervix. Following the dilation tract we did not identify the endometrial cavity and instead the hysteroscopy appeared to have minimally entered the posterior cul de sac. No sharp or thermal instrumentation was used and no bleeding or excessive fluid loss was identified therefore I elected to terminate the procedure. All instruments were removed from the vagina. Bleeding was noted to be minimal. Counts were correct x 2 at the end of the procedure, patient tolerated the procedure well and was transferred to PACU in stable condition. PRE-OP/PRE-PROCEDURE DIAGNOSIS: Dilated endometrium , post menopausal bleeding POST-OP/POST-PROCEDURE DIAGNOSIS: Same as Preop ESTIMATED BLOOD LOSS: 15 mls SPECIMENS: * No specimens in log * IMPLANTABLE DEVICES: NONE DRAINS: None HEMOSTATIC AGENTS: None COMPLICATIONS: None PARTICIPATION IN SURGERY/PROCEDURE: I/primary surgeon/proceduralist performed the procedure with assistance. I was scrubbed and present for all youssef portions of the above procedure. SIGNATURE: Chelly Oneal MD PATIENT NAME: Flor Hernandez DATE: November 18, 2023 TIME: 11:49 AM [facility] FLOR HERNANDEZ ([id number]) 1955 F Date Time Provider Department 11/17/23 CHELLY ONEAL [employer] During your visit today, we recorded the following information about you: Paul Lucas RN 11/17/2023 9:53 AM Signed Called pt regarding pre-op teaching appointment today. Confirmed name and . Informed patient that she was on my schedule for pre-op teaching today, however it appears teaching was completed 11/15/2023 with Sarai GODOY. Patient confirmed teaching was completed and does not have any additional questions. Patient agreed to the cancellation of the appointment. Paul Lucas RN Allergies As of Date: 11/17/2023 Noted Allergy Reaction APRESOLINE (HYDRALAZINE HCL) 05/01/2018 14 - Other: See Comments Comments: Kidney injury - renal stenosis CAT JOJO 10/16/2019 9 - Itching Date Reviewed: 11/14/2023 Reviewed by: Kayla Armas MA - Fully Assessed Reason for Visit: Appointment Cancelled [1023] Prescriptions as of 11/17/2023 - atorvastatin (LIPITOR) 10 mg tablet Take 10 mg by mouth once daily. - folic acid 1 mg tablet Take 1 mg by mouth two times a day. - IIMYDV-6-TJHNDJGK, BULK, MISC 200 mg once daily. - coenzyme Q10 (CO Q-10) 100 mg cap capsule Take 100 mg by mouth once daily. - Ibandronate 150 mg tablet Take 150 mg by mouth once every month. - levothyroxine (SYNTHROID) 75 mcg tablet Take 88 mcg by mouth daily before breakfast. Problem List As Of Date 11/17/2023 Noted Resolved Severe calcific aortic stenosis [I35.0] 05/01/2018 05/09/2018 Hypothyroidism [E03.9] 05/01/2018 Pre-operative cardiovascular examination [Z01.8*05/01/2018 05/09/2018 H/O unilateral nephrectomy [Z90.5] 05/01/2018 05/09/2018 Sarcoidosis (HCC) [D86.9] 05/01/2018 05/09/2018 Renal artery stenosis (HCC) [I70.1] 05/01/2018 05/09/2018 Discharge planning issues [Z02.9] 05/02/2018 Preop testing [Z01.818] 05/02/2018 05/09/2018 Difficult airway for intubation [T88.4XXA] 05/05/2018 Aortic stenosis [I35.0] 05/05/2018 05/09/2018 On mechanically assisted ventilation (HCC) [Z99*05/05/2018 05/06/2018 Post-op pain [G89.18] 05/05/2018 05/09/2018 Hydropneumothorax [J94.8] 05/06/2018 Fluid overload [E87.70] 05/07/2018 05/09/2018 Atelectasis [J98.11] 05/07/2018 05/09/2018 Acute blood loss anemia [D62] 05/07/2018 05/09/2018 Postoperative atrial fibrillation (HCC) [I97.89*05/08/2018 Transition of care performed with sharing of cl*05/09/2018 Aortic stenosis [I35.0] 11/14/2023 High cholesterol [E78.00] 11/14/2023 Renal artery stenosis (HCC) [I70.1] 11/14/2023 Single kidney [Z90.5] 11/14/2023 Encounter Status:Closed by PAUL LUCAS on 11/17/23 [facility] 11-15-2023 [place]OLANT[place] Telephone (EULOGIOJOEY) -- FLOR HERNANDEZ ([id number]) 1955 F Date Time Provider Department 11/15/23 RISA CERVANTES During your visit today, we recorded the following information about you: Risa Cervantes APRN.CNP 11/16/2023 2:35 PM Signed 11/15/2023 late note Called patient to inquire if cardiology was sending clearance. Patient states she forgot to call and would call now. Advised patient that [facility] had reached out to the cards office, but if they didn't receive that communication, they could send clearance to fax # [phone]. Risa Cervantes APRN.TREVIN Allergies As of Date: 11/15/2023 Noted Allergy Reaction APRESOLINE (HYDRALAZINE HCL) 05/01/2018 14 - Other: See Comments Comments: Kidney injury - renal stenosis YONG URIBE 10/16/2019 9 - Itching Date Reviewed: 11/14/2023 Reviewed by: Kayla Armas MA - Fully Assessed Prescriptions as of 11/16/2023 - atorvastatin (LIPITOR) 10 mg tablet Take 10 mg by mouth once daily. - folic acid 1 mg tablet Take 1 mg by mouth two times a day. - [id number]-[id number], BULK, MISC 200 mg once daily. - coenzyme Q10 (CO Q-10) 100 mg cap capsule Take 100 mg by mouth once daily. - Ibandronate 150 mg tablet Take 150 mg by mouth once every month. - levothyroxine (SYNTHROID) 75 mcg tablet Take 88 mcg by mouth daily before breakfast. Problem List As Of Date 11/15/2023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 lightheadness, CAD, stents, fatigue.. GI: No history of GI symptoms or problems. No history of esophageal varices, recent ascites, or ETOH greater than 2 drinks per day. : hx RA stensosis and left nephrectomy, right kidney moved to lower right abd, stenosis cured; no KD. No urinary sx. 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 Endocrine: Hypothyroidism Hematology: No history of bleeding or clotting disorder. Pt is not taking anti-coagulation or platelet medications. No history of hematological symptoms or problems. Oncology: No history of CA metastasis, chemo within 30 days, or radiotherapy within 90 days. Has not lost 10% of body wt in 6 months. No history of oncological symptoms or problems. Psych: Depression Musculoskeletal: Negative for joint pain or swelling, back pain or muscle pain. Skin: Negative for lesions, rash and itching. Objective PHYSICAL EXAM: VITALS: BP 130/70 Pulse 64 Temp (Src) 97 (Temporal Artery) Resp 18 Ht 5' 3 (1.60m) Wt 141 lb 5 oz (64.1kg) SpO2 95% BMI 25.04 kg/(m2). General: Alert and oriented, No acute distress, Healthy appearance Skin: Normal color, no rash, no lesions. HEENT: EOM, pupils equal, round and reactive., No carotid bruits, no URI sx Cardiovascular: RRR; harsh gr III syst (more content not included)... Normal [facility] HPV W/GENOTYPE THIN PREPon 0 11-14-2023 HPV 16 Ag Ql (Unsp spec) Negative Normal Negative for HPV DNA high risk type 16 by PCR [facility] Comment on above: Order Comment: Speci men Type: FLUID SPECIMEN Ordering Facility: [facility] Address: [address] [place] [address] Performed By: #### H PVHRT #### [facility] CLIA [id number] [address] [place] [address] [place] HPV 18 Ag Ql (Unsp spec) Negative Normal Negative for HPV DNA high risk type 18 by PCR [facility] Comment on above: Order Comment: Speci men Type: FLUID SPECIMEN Ordering Facility: [facility] Address: [address] [place] [address] Performed By: #### H PVHRT #### [facility] CLIA [id number] [facility] [place] [address] [place] HPV 31+33+35+39+45+51+52+5 6+58+59+66+68 DNA JUNIOR+probe Ql (Cvx) Negative for HPV DNA high risk types: 31,33,35,39,45,51,52,56,58 ,59,66,68 by PCR. Normal Negative for HPV DNA high risk types: 31,33,35,3 9,45,51,52 ,56,58,59, 66,68 by PCR. [facility] Comment on above: Order Comment: Speci men Type: FLUID SPECIMEN Ordering Facility: [facility] Address: [address] [place] [address] Performed By: #### H PVHRT #### [facility] CLIA [id number] [address] [place] [address] [place] PAP TESTon 11-14-2023 ADEQUACY Satisfactory for interpretation Normal [facility] Comment on above: Order Comment: Speci men Type: FLUID SPECIMEN Ordering Facility: [facility] Address: [address] [place] [address] Performed By: #### L [id number] #### [facility] CLIA [id number] [address] [place] [address] [place] CASE REPORT Normal [facility] Comment on above: Order Comment: Speci men Type: FLUID SPECIMEN Ordering Facility: [facility] Address: [address] [place] [address] Result Comment: Gyne cologic Cytology Report Case: [id number] Authorizing Provider: Juanita Thomas, Collected: 11/14/2023 01:58 PM 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 Ordering Location: Gynecology Oncology Received: 11/14/2023 08:16 PM First Screen: Deeds, Filipe, CT, ASCP Specimen: Pap Test, ThinPrep, Cervix Performed By: #### L [id number] #### [facility] CLIA [id number] [address] [place] [address] [place] CLINICAL HISTORY, CYTOLOGY, MACHINIST FIRST CLASS Routine Exam Normal [facility] Comment on above: Order Comment: Speci men Type: FLUID SPECIMEN Ordering Facility: [facility] Address: [address] [place] [address] Result Comment: Post Menopausal Performed By: #### L [id number] #### [facility] CLIA [id number] [address] [place] [id number] [place] FINAL PERFORMING LAB Normal [facility] Comment on above: Order Comment: Speci men Type: FLUID SPECIMEN Ordering Facility: [facility] Address: [address] [place] [address] Result Comment: Tech nical component, tea and spice supervisor screening performed at [facility], [address] [facility] [address] CLIA# [id number] Diagnostic interpretation performed at [facility], [facility] [address] CLIA# [id number] Guidance And Control System Engineer: Adithya Pinto M.D. Performed By: #### L [id number] #### [facility] CLIA [id number] [address] [place] [address] [place] HPV REFLEX Yes HPV Normal [facility] Comment on above: Order Comment: Speci men Type: FLUID SPECIMEN Ordering Facility: [facility] Address: [address] [place] [address] Performed By: #### L [id number] #### [facility] CLIA [id number] [address] [place] [address] [place] INTERPRETATION, CYTOLOGY, MACHINIST FIRST CLASS Normal [facility] Comment on above: Order Comment: Speci men Type: FLUID SPECIMEN Ordering Facility: [facility] Address: [address] [place] [address] Result Comment: Nega tive for intraepithelial lesion or malignancy. Performed By: #### L [id number] #### [facility] CLIA [id number] [address] [place] [id number] [place] PAP DISCLAIMER COMMENT The Pap Smear is a screening test for cervical cancer. False negative results occur with all screening tests, emphasizing the need for rescreening at recommended intervals, and clinical correlation. Normal [facility] Comment on above: Order Comment: Speci men Type: FLUID SPECIMEN Ordering Facility: [facility] Address: [address] [place] [address] Performed By: #### L [id number] #### [facility] CLIA [id number] [address] [place] [address] [place] PAP BENEFITS TECHNICIAN COMMENT This specimen has be en analyzed by the ThinPrep Imaging System, an automated imaging and review system, which assists the laboratory in evaluating cells on ThinPrep Pap tests. Following automated imaging, selected haas from every slide are reviewed by a tea and spice supervisor. Normal [facility] Comment on above: Order Comment: Speci men Type: FLUID SPECIMEN Ordering Facility: [facility] Address: [address] [place] [address] Performed By: #### L [id number] #### [facility] CLIA [id number] [facility] [place] [address] [place] TYPE AND SCREEN,30 DAYon ABO A Normal [facility] Comment on above: Order Comment: Speci men Type: BLOOD SPECIMEN Ordering Facility: [facility] Address: [address] [place] [address] Performed By: #### T [id number] #### [facility] CLIA [id number] [address] [place] [address] [place] HISTORICAL AB SCR STATUS Negative Normal [facility] Comment on above: Order Comment: Speci men Type: BLOOD SPECIMEN Ordering Facility: [facility] Address: [address] [place] [address] Performed By: #### T [id number] #### [facility] CLIA [id number] [address] [place] [address] [place] Rh Nom (Bld) Positive Normal [facility] Comment on above: Order Comment: Speci men Type: BLOOD SPECIMEN Ordering Facility: [facility] Address: [address] [place] [address] Performed By: #### T [id number] #### [facility] [id number] [address] [facility] [id number] [address] [place] 11-08-2023 CNPN Telephone (Sun Number) -- FLOR HERNANDEZ ([id number]) 1955 F Date Time Provider Department 11/08/23 CHELLY ONEAL Sun Number During your visit today, we recorded the following information about you: Maida Rojas 11/08/2023 8:18 AM Signed I left a voicemail for Dr. Aidan Little office regarding obtaining records. Allergies As of Date: 11/08/2023 Noted Allergy Reaction APRESOLINE (HYDRALAZINE HCL) 05/01/2018 14 - Other: See Comments Comments: Kidney injury - renal stenosis Date Reviewed: 08/18/2018 Reviewed by: Eleanor Gallagher (Rn), RN - Fully Assessed Reason for Visit: Request Outside Medical Records [[id number]] Cmt: I left a voicemail for Dr. Aidan Little office regarding obtaining records. Prescriptions as of 11/08/2023 - folic acid 1 mg tablet Take 1 mg by mouth once daily. - UTJANP-6-FYMIPYIN, BULK, MISC 200 mg once daily. - coenzyme Q10 (CO Q-10) 100 mg cap capsule Take 100 mg by mouth once daily. - Ibandronate 150 mg tablet Take 150 mg by mouth once every month. - levothyroxine (SYNTHROID) 75 mcg tablet Take 75 mcg by mouth daily before breakfast. 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] 05/01/2018 05/09/2018 Hypothyroidism [E03.9] 05/01/2018 Pre-operative cardiovascular examination [Z01.8*05/01/2018 05/09/2018 H/O unilateral nephrectomy [Z90.5] 05/01/2018 05/09/2018 Sarcoidosis (HCC) [D86.9] 05/01/2018 05/09/2018 Renal artery stenosis (HCC) [I70.1] 05/01/2018 05/09/2018 Discharge planning issues [Z02.9] 05/02/2018 Preop testing [Z01.818] 05/02/2018 05/09/2018 Difficult airway for intubation [T88.4XXA] 05/05/2018 Aortic stenosis [I35.0] 05/05/2018 05/09/2018 On mechanically assisted ventilation (HCC) [Z99*05/05/2018 05/06/2018 Post-op pain [G89.18] 05/05/2018 05/09/2018 Hydropneumothorax [J94.8] 05/06/2018 Fluid overload [E87.70] 05/07/2018 05/09/2018 Atelectasis [J98.11] 05/07/2018 05/09/2018 Acute blood loss anemia [D62] 05/07/2018 05/09/2018 Postoperative atrial fibrillation (HCC) [I97.89*05/08/2018 Transition of care performed with sharing of cl*05/09/2018 Encounter Status:Closed by MAIDA ROJAS on 11/08/23 Normal [facility] Basic Metabolic Panelon 12-1 Anion gap [Moles/Vol] 10.2 mmol/L Normal 6.0-15.0 [facility] Comment on above: Performed By: #### C BC, BMP #### [facility] [address] [place] [address] [place] Calcium [Mass/Vol] 8.5 mg/dL Low 8.6-10.3 [facility] Comment on above: Performed By: #### C BC, BMP #### [facility] [address] [place] [id number] [place] Chloride [Moles/Vol] 110 mmol/L High 98-107 [facility] Comment on above: Performed By: #### C BC, BMP #### [facility] [address] CO2 [Moles/Vol] 27.9 mmol/L Normal 21.0-31.0 [facility] Comment on above: Performed By: #### C BC, BMP #### [facility] [address] Creatinine [Mass/Vol] 0.73 mg/dL Normal 0.60-1.20 [facility] Comment on above: Performed By: #### C BC, BMP #### [facility] [address] [place] [address] [place] Creatinine Clr Calc Pharmacy 55.68 Normal [facility] Comment on above: Result Comment: PERF ORMED BY: [place] [address] PATHOLOGIST DIVIDEND DEPOSIT ENTRY CLERK KATRIN GARCIA M.D. Performed By: #### C BC, BMP #### [place] [address] [place] GFR/1.73 sq M.predicted MDRD (S/P/Bld) [Vol rate/Area] mL/min/{1.73_m2} Normal [facility] Comment on above: Performed By: #### C BC, BMP #### [address] Glucose [Mass/Vol] 86 mg/dL Normal 70-100 [facility] Comment on above: Result Comment: [facility] Glucose Reference Range is dependent on time and content of last meal. Glucose of more than 200 mg/dL in a nonstressed, ambulatory subject supports the diagnosis of Diabetes Mellitus. ADA recommended reference range Performed By: #### C BC, BMP #### [facility] [address] [place] [address] [place] Potassium [Moles/Vol] 4.1 mmol/L Normal 3.5-5.1 [facility] Comment on above: Performed By: #### C BC, BMP #### [facility] [address] [place] [address] [place] Sodium [Moles/Vol] 144 mmol/L Normal 136-145 [facility] Comment on above: Performed By: #### C BLANKA, BMP #### [facility] [address] Urea nitrogen [Mass/Vol] 14 mg/dL Normal 7-25 [facility] Comment on above: Performed By: #### C BLANKA, BMP #### [facility] [address] Basophils Auto (Bld) [#/Vol] Ordered By: Elias Blanchard on 10-21-2023 Basophils (Bld) [#/Vol] 0.0 10*3/uL 0.0-0.2 [facility] Basophils/100 WBC Auto (Bld) Ordered By: Elias Blanchard on 10-21-2023 Basophils/100 WBC (Bld) 0.8 % . [facility] Calcium [Mass/volume] in Ser um or PlasmaOrdered By: Elias Blanchard on 10-21-2023 Calcium [Mass/Vol] 8.5 mg/dL 8.6-10.3 [facility] Carbon dioxide, total [Moles /volume] in Serum or PlasmaOrdered By: Elias Blanchard on 10-21-2023 CO2 [Moles/Vol] 27.9 mmol/L 21.0-31.0 [facility] Chloride [Moles/volume] in S scott or PlasmaOrdered By: Elias Blanchard on 10-21-2023 Chloride [Moles/Vol] 110 mmol/L 98-107 [facility] Complete Blood Count Auto Di ffon 10-21-2023 Basophils (Bld) [#/Vol] 0.0 10*3/uL Normal 0.0-0.2 [facility] Comment on above: Result Comment: PERF ORMED BY: [place] [address] PATHOLOGIST DIVIDEND DEPOSIT ENTRY CLERK KATRIN GARCIA M.D. Performed By: #### C BLANKA, BMP #### [facility] [address] Basophils/100 WBC (Bld) 0.8 % Normal . [facility] Comment on above: Performed By: #### C BLANKA, BMP #### [facility] [address] Eosinophils (Bld) [#/Vol] 0.2 10*3/uL Normal 0.0-0.45 [facility] Comment on above: Performed By: #### C BC, BMP #### [facility] [address] Eosinophils/100 WBC (Bld) 3.0 % Normal . [facility] Comment on above: Performed By: #### C BC, BMP #### [facility] [address] Erythrocyte distribution width (RBC) [Ratio] 13.8 % Normal 11.9-15.3 [facility] Comment on above: Performed By: #### C BC, BMP #### [address] Hematocrit (Bld) [Volume fraction] 38.1 % Normal 34.0-46.4 [facility] Comment on above: Performed By: #### C BC, BMP #### [address] Hemoglobin (Bld) [Mass/Vol] 12.6 g/dL Normal 11.8-15.4 [facility] Comment on above: Performed By: #### C BC, BMP #### [address] Lymphocytes (Bld) [#/Vol] 1.2 10*3/uL Normal 1.00-4.8 [facility] Comment on above: Performed By: #### C BC, BMP #### [place] [address] [place] Lymphocytes/100 WBC (Bld) 21.9 % Normal . [facility] Comment on above: Performed By: #### C BC, BMP #### [place] [address] [place] MCH (RBC) [Entitic mass] 29.4 pg Normal 24.7-34.3 [facility] Comment on above: Performed By: #### C BC, BMP #### [facility] [address] MCV (RBC) [Entitic vol] 88.5 fL Normal 80-100 [facility] Comment on above: Performed By: #### C BC, BMP #### [address] Mean Corpuscular HGB Conc 33.2 g/dL Normal 32.0-35.0 [facility] Comment on above: Performed By: #### C BC, BMP #### [address] Monocytes (Bld) [#/Vol] 0.6 10*3/uL Normal 0.0-0.8 [facility] Comment on above: Performed By: #### C BC, BMP #### [address] Monocytes/100 WBC (Bld) 11.5 % Normal . [facility] Comment on above: Performed By: #### C BC, BMP #### [address] Neutrophils (Bld) [#/Vol] 3.4 10*3/uL Normal 1.8-7.7 [facility] Comment on above: Performed By: #### C BC, BMP #### [address] Neutrophils/100 WBC (Bld) 62.8 % Normal . [facility] Comment on above: Performed By: #### C BC, BMP #### [address] NRBC% 0.2 /100{WBC} Normal 0-0.5 [facility] Comment on above: Performed By: #### C BC, BMP #### [address] Platelet mean volume (Bld) [Entitic vol] 8.8 fL Normal 6.3-10.7 [facility] Comment on above: Performed By: #### C BC, BMP #### [address] Platelets (Bld) [#/Vol] 154 10*3/uL Normal 150-450 [facility] Comment on above: Performed By: #### C BLANKA, DARBY #### [facility] [address] RBC (Bld) [#/Vol] 4.30 10*6/uL Normal 3.60-5.00 [facility] Comment on above: Performed By: #### C BLANKA, BMP #### [facility] [address] WBC (Bld) [#/Vol] 5.5 10*3/uL Normal 3.8-11.6 [facility] Comment on above: Performed By: #### C BLANKA, DABRY #### [facility] [address] Creatinine [Mass/volume] in Serum or PlasmaOrdered By: Elias Blanchard on 10-21-2023 Creatinine [Mass/Vol] 0.73 mg/dL 0.60-1.20 [facility] Eosinophils Auto (Bld) [#/Vo l]Ordered By: Elias Blanchard on 10-21-2023 Eosinophils (Bld) [#/Vol] 0.2 10*3/uL 0.0-0.45 [facility] Eosinophils/100 WBC Auto (Bl d)Ordered By: Elias Blanchard on 10-21-2023 Eosinophils/100 WBC (Bld) 3.0 % . [facility] Erythrocyte distribution wid th Auto (RBC) [Ratio]Ordered By: Elias Blanchard on 10-21-2023 Erythrocyte distribution width (RBC) [Ratio] 13.8 % 11.9-15.3 [facility] Glucose [Mass/volume] in Ser um or PlasmaOrdered By: Elias Blanchard on 10-21-2023 Glucose [Mass/Vol] 86 mg/dL 70-100 [facility] Comment on above: ADA recommended refe rence rangeRandom Glucose Reference Range is dependent on time and content of last meal. Glucose of more than 200 mg/dL in a nonstressed, ambulatory subject supports the diagnosis of Diabetes Mellitus. Hematocrit Auto (Bld) [Volum e fraction]Ordered By: Elias Blanchard on 10-21-2023 Hematocrit (Bld) [Volume fraction] 38.1 % 34.0-46.4 [facility] Hemoglobin [Mass/volume] in BloodOrdered By: Elias Blanchard on 10-21-2023 Hemoglobin (Bld) [Mass/Vol] 12.6 g/dL 11.8-15.4 [facility] Leukocytes [#/volume] correc cam for nucleated erythrocytes in Blood by Automated counOrdered By: Elias Blanchard on 10-21-2023 WBC corrected for nucl RBC Auto (Bld) [#/Vol] 5.5 10*3/uL 3.8-11.6 [facility] Lymphocytes Auto (Bld) [#/Vo l]Ordered By: Elias Blanchard on 10-21-2023 Lymphocytes (Bld) [#/Vol] 1.2 10*3/uL 1.00-4.8 [facility] Lymphocytes/100 WBC Auto (Bl d)Ordered By: Elias Blanchard on 10-21-2023 Lymphocytes/100 WBC (Bld) 21.9 % . [facility] MCH Auto (RBC) [Entitic mass ]Ordered By: Elias Blanchard on 10-21-2023 MCH (RBC) [Entitic mass] 29.4 pg 24.7-34.3 [facility] MCHC Auto (RBC) [Mass/Vol]Or dered By: Elias Blanchard on 10-21-2023 MCHC (RBC) [Mass/Vol] 33.2 g/dL 32.0-35.0 [facility] MCV Auto (RBC) [Entitic vol] Ordered By: Elias Blanchard on 10-21-2023 MCV (RBC) [Entitic vol] 88.5 fL 80-100 [facility] Monocytes Auto (Bld) [#/Vol] Ordered By: Elias Blanchard on 10-21-2023 Monocytes (Bld) [#/Vol] 0.6 10*3/uL 0.0-0.8 [facility] Monocytes/100 WBC Auto (Bld) Ordered By: lEias Blanchard on 10-21-2023 Monocytes/100 WBC (Bld) 11.5 % . [facility] Neutrophils Auto (Bld) [#/Vo l]Ordered By: Elias Blanchard on 10-21-2023 Neutrophils (Bld) [#/Vol] 3.4 10*3/uL 1.8-7.7 [facility] Neutrophils/100 WBC Auto (Bl d)Ordered By: Elias Blanchard on 10-21-2023 Neutrophils/100 WBC (Bld) 62.8 % . [facility] No Panel InformationOrdered By: Elias Blanchard on 10-21-2023 Estimated GFR (CKD-EPI) > 60.0 mL/Min [facility] Creatinine Clearance (Chem 55.68 [facility] Nucleated erythrocytes [Pres ence] in Blood by Automated countOrdered By: Elias Blanchard on 10-21-2023 Nucleated RBC Auto Ql (Bld) 0.2 /100{WBC} 0-0.5 [facility] Platelet mean volume Auto (B ld) [Entitic vol]Ordered By: Elias Blanchard on 10-21-2023 Platelet mean volume (Bld) [Entitic vol] 8.8 fL 6.3-10.7 [facility] Platelets Auto (Bld) [#/Vol] Ordered By: Elias Blanchard on 10-21-2023 Platelets (Bld) [#/Vol] 154 10*3/uL 150-450 [facility] Potassium [Moles/volume] in Serum or PlasmaOrdered By: Elias Blanchard on 10-21-2023 Potassium [Moles/Vol] 4.1 mmol/L 3.5-5.1 [facility] RBC Auto (Bld) [#/Vol]Ordere d By: Elias Blanchard on 10-21-2023 RBC (Bld) [#/Vol] 4.30 10*6/uL 3.60-5.00 [facility] Serum or plasma anion gap de terminationOrdered By: Elias Blanchard on 10-21-2023 Anion gap [Moles/Vol] 10.2 mmol/L 6.0-15.0 [facility] Sodium [Moles/volume] in Ser um or PlasmaOrdered By: Elias Blanchard on 10-21-2023 Sodium [Moles/Vol] 144 mmol/L 136-145 [facility] Urea nitrogen [Mass/volume] in Serum or PlasmaOrdered By: Elias Lo on 10-21-2023 Urea nitrogen [Mass/Vol] 14 mg/dL 7-25 [facility] WBC Auto (Bld) [#/Vol]Ordere d By: Elias Medellinholder on 10-21-2023 WBC (Bld) [#/Vol] 5.5 10*3/uL 3.8-11.6 [facility] MM screening mammo BI w/CADo n 09-22-2023 MM screening mammo BI w/CAD [facility] [place] [address] Mammography Report Signed Patient: Flor Hernandez MR#: [id number] : 1955 Acct:[id number] Age/Sex: 68 / F ADM Date: 09/22/23 Loc: [place] Room: Type: [facility] Attending Dr: Referral Self Copies to: Kaleb Nassar DO SELF,REFERRAL Ordering Provider: SELF,REFERRAL Date of Service: 09/22/23 MM/MM screening mammo BI w/CAD: SCREENING CLINICAL DATA: Screening for malignancy. BILATERAL SCREENING MAMMOGRAMS - FULL FIELD DIGITAL WITH TOMOSYNTHESIS AND CAD Routine and implant displacement tomosynthesis craniocaudal and mediolateral oblique views of both breasts were obtained using low-dose digital technique. Comparison is made to prior studies from September 08, 2020 through September 22, 2023. This examination was reviewed with the aid of CAD. There are bilateral prepectoral silicone implants that may obscure breast tissue there is mild capsular calcification There are scattered fibroglandular densities. There are no developing masses, typically malignant calcifications or architectural distortion. There has been no significant interval change. MM/MM screening mammo BI w/CAD IMPRESSION: NO MAMMOGRAPHIC EVIDENCE OF MALIGNANCY. ROUTINE FOLLOW-UP IS RECOMMENDED IN ONE YEAR. RESULT CODE: 1 Negative DENSITY CODE: 2 (approximately 25-50% glandular) FOLLOW UP: 1YR The false-negative rate of mammography is approximately 10-percent. Management of a palpable abnormality must be based on clinical grounds. Patient was entered into a reminder system with a target due date for the next mammogram. Impression dictated by: Meredith Wolf M.D.09/22/2023 4:30 PM Dictation Location: [facility] Transcribed By: [facility] 09/22/23 1630 Dictated By: Meredith Wolf MD 09/22/23 1625 Signed By: 09/22/23 1630 Normal [facility] Albumin [Mass/volume] in Ser um or Plasma by Bromocresol green (BCG) dye binding methoOrdered By: Kitty Stovall on 08-31-2023 Albumin BCG dye [Mass/Vol] 4.2 g/dL 3.5-5.7 [facility] Calcium [Mass/volume] in Ser um or PlasmaOrdered By: Kitty Stovall on 08-31-2023 Calcium [Mass/Vol] 9.3 mg/dL Normal 8.6-10.3 [facility] Comment on above: Performed By: #### R ENAL #### [facility] [address] [place] [address] [place] Carbon dioxide, total [Moles /volume] in Serum or PlasmaOrdered By: Kitty Stovall on 08-31-2023 CO2 [Moles/Vol] 29.2 mmol/L Normal 21.0-31.0 [facility] Comment on above: Performed By: #### R ENAL #### [place] [address] [place] Chloride [Moles/volume] in S scott or PlasmaOrdered By: Kitty Stovall on 08-31-2023 Chloride [Moles/Vol] 108 mmol/L High 98-107 [facility] Comment on above: Performed By: #### R ENAL #### [facility] [address] [place] [address] [place] Creatinine [Mass/volume] in Serum or PlasmaOrdered By: Kitty Stovall on 08-31-2023 Creatinine [Mass/Vol] 0.92 mg/dL Normal 0.60-1.20 [facility] Comment on above: Performed By: #### R ENAL #### [facility] [address] [place] [address] [place] Glucose [Mass/volume] in Ser um or PlasmaOrdered By: Kitty Stovall on 08-31-2023 Glucose [Mass/Vol] 86 mg/dL Normal 70-100 [facility] Comment on above: ADA recommended refe rence rangeRandom Glucose Reference Range is dependent on time and content of last meal. Glucose of more than 200 mg/dL in a nonstressed, ambulatory subject supports the diagnosis of Diabetes Mellitus. Result Comment: Henry om Glucose Reference Range is dependent on time and content of last meal. Glucose of more than 200 mg/dL in a nonstressed, ambulatory subject supports the diagnosis of Diabetes Mellitus. ADA recommended reference range Performed By: #### R ENAL #### [address] No Panel InformationOrdered By: Kitty Stovall on 08-31-2023 Estimated GFR (CKD-EPI) > 60.0 mL/Min [facility] Creatinine Clearance (Chem N/A [facility] Phosphate [Mass/volume] in S scott or PlasmaOrdered By: Kitty Stovall on 08-31-2023 Phosphate [Mass/Vol] 3.5 mg/dL Low 3.7-7.2 [facility] Comment on above: Performed By: #### R ENAL #### [facility] [address] [place] [address] Potassium [Moles/volume] in Serum or PlasmaOrdered By: Kitty Stovall on 08-31-2023 Potassium [Moles/Vol] 4.7 mmol/L Normal 3.5-5.1 [facility] Comment on above: Performed By: #### R ENAL #### [address] Renal Function Panelon 08-31 Albumin [Mass/Vol] 4.2 g/dL Normal 3.5-5.7 [facility] Comment on above: Result Comment: PERF ORMED BY: [place] [address] PATHOLOGIST DIVIDEND DEPOSIT ENTRY CLERK KATRIN GARCIA M.D. Performed By: #### R ENAL #### [address] GFR/1.73 sq M.predicted MDRD (S/P/Bld) [Vol rate/Area] mL/min/{1.73_m2} Normal [facility] Comment on above: Performed By: #### R ENAL #### [facility] [address] [place] [address] Serum or plasma anion gap de terminationOrdered By: Kitty Stovall on 08-31-2023 Anion gap [Moles/Vol] 10.5 mmol/L Normal 6.0-15.0 [facility] Comment on above: Performed By: #### R ENAL #### [facility] [address] [place] [address] Sodium [Moles/volume] in Ser um or PlasmaOrdered By: Kitty Stovall on 08-31-2023 Sodium [Moles/Vol] 143 mmol/L Normal 136-145 [facility] Comment on above: Performed By: #### R ENAL #### [facility] [address] [place] [address] Urea nitrogen [Mass/volume] in Serum or PlasmaOrdered By: Kitty Stovall on 08-31-2023 Urea nitrogen [Mass/Vol] 20 mg/dL Normal 7-25 [facility] Comment on above: Performed By: #### R ENAL #### [facility] [address] [place] [address] Activated partial thrombopla stin time (aPTT) in platelet poor plasma by coagulation aOrdered By: Niranjan Russo on 08-22-2023 aPTT Coag (PPP) [Time] 32.0 s 25.1-36.5 [facility] Comment on above: A hematocrit value g reater than 55% may lead to inaccurate results in coagulation testing. Patients having hematocrit values >55% require a special collection tube for coagulation studies. Please contact the laboratory at [phone] for redraw instructions. Coagulation Profileon 2022 aPTT Coag (Bld) [Time] 32.0 s Normal 25.1-36.5 [facility] Comment on above: Result Comment: A he matocrit value greater than 55% may lead to inaccurate results in coagulation testing. Patients having hematocrit values >55% require a special collection tube for coagulation studies. Please contact the laboratory at [phone] for redraw instructions. PERFORMED BY: [place] [id number] PATHOLOGIST DIVIDEND DEPOSIT ENTRY CLERK KATRIN GARCIA M.D. Performed By: #### P P #### [facility] [address] [place], [place] [id number] [facility] INR Coag (PPP) [Relative time] 0.9 {INR} Normal [facility] Comment on above: Result Comment: INR Therapeutic Range A) Pre- and Peroperative OAT started two weeks before surgery. NOT HIP SURGERY: 1.5 - 2.5 HIP SURGERY: 2 - 3 B) Primary and secondary prevention of venous THROMBOSIS: 2 - 3 C) Active venous thrombosis, pulmonary embolism and prevention of recurrent venous thrombosis: 2 - 3 D) Prevention of arterial thromboembolism including patients with mechanical heart valves: 3 - 4.5 Performed By: #### P P #### [facility] [address] [place], [place] [id number] [facility] PT Coag (PPP) [Time] 11.2 s Normal 9.0-12.9 [facility] Comment on above: Result Comment: A he matocrit value greater than 55% may lead to inaccurate results in coagulation testing. Patients having hematocrit values >55% require a special collection tube for coagulation studies. Please contact the laboratory at [phone] for redraw instructions. Performed By: #### P P #### [facility] [address] [place], [place] [id number] [facility] INR in Platelet poor plasma by Coagulation assayOrdered By: Niranjan Russo on 08-22-2023 INR Coag (PPP) [Relative time] 0.9 {INR} [facility] Comment on above: INR Therapeutic Rang e A) Pre- and Peroperative OAT started two weeks before surgery. NOT HIP SURGERY: 1.5 - 2.5 HIP SURGERY: 2 - 3B) Primary and secondary prevention of venous THROMBOSIS: 2 - 3C) Active venous thrombosis, pulmonary embolismand prevention of recurrent venous thrombosis: 2 - 3D) Prevention of arterial thromboembolismincluding patients with mechanical heart valves: 3 - 4.5 Prothrombin time (PT)Ordered By: Niranjan Russo on 08-22-2023 PT Coag (PPP) [Time] 11.2 s 9.0-12.9 [facility] Comment on above: A hematocrit value g reater than 55% may lead to inaccurate results in coagulation testing. Patients having hematocrit values >55% require a special collection tube for coagulation studies. Please contact the laboratory at [phone] for redraw instructions. ECG 12 lead ECGon 08-19-2023 ECG 12 lead ECG [facility] [place] [address] [place] [address] Electrocardiograph Report Signed Patient: Flor Hernandez MR#: [id number] : 1955 Acct:[id number] Age/Sex: 67 / F ADM Date: 08/19/23 Loc: Room: Type: [facility] Attending Dr: Niranjan Russo MD Ordering Provider: Niranjan Russo MD Date of Service: 08/19/23 ECG/ECG 12 lead ECG: [facility] Copies to: Test Reason : Blood Pressure : / mmHG Vent. Rate : 058 BPM Atrial Rate : 058 BPM P-R Int : 140 ms QRS Dur : 078 ms QT Int : 414 ms P-R-T Axes : 076 070 086 degrees QTc Int : 406 ms Sinus bradycardia Possible Left atrial enlargement RSR' or QR pattern in V1 suggests right ventricular conduction delay Borderline ECG When compared with ECG of 12-OCT-2019 07:36, Nonspecific T wave abnormality now evident in Lateral leads Confirmed by YAAKOV REAL DO ([id number]) on 08/19/2023 8:57:17 AM Referred By: KARAN Electronically Signed By:YAAKOV REAL DO Transcribed By: MUS Signed By Yaakov Real DO 08/19 0857 Normal [facility] Echocardiogramon 07-18-[address], [address], [place] [address] TRANSTHORACIC ECHOCARDIOGRAM REPORT Patient Name: FLOR SCOTT Simin Physician: [id number] Rolanda HERNANDEZ MD Study Date: 07/18/2023 Referring NIRANJAN RUSSO Physician: MRN/PID: [id number] PCP: Kaleb Nassar Accession/Order#: [id number] [facility] Location: Date of : 1955 Fellow: Gender: F Nurse: Admit Date: Pie Crust Mixer: Sugar Glez RDCS, RVT Height: 160.02 cm CC Report to: Weight: 61.69 kg Study Type: Echocardiogram BSA: 1.64 m2 Blood Pressure: 144 /80 mmHg Diagnosis/ICD: 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 PHYSICIAN INTERPRETATION: Left Ventricle: Left ventricular systolic function is normal, with an estimated ejection fraction of 60-65%. There are no regional wall motion abnormalities. The left ventricular cavity size is normal. Spectral Doppler shows a normal pattern of left ventricular diastolic filling. Mild LVH. Left Atrium: The left atrium is mildly dilated. Mildly dilated left atrium. Right Ventricle: The right ventricle is normal in size. There is normal right ventricular global systolic function. Right Atrium: The right atrium is mildly dilated. Mildly dilated right atrium. Aortic Valve: There is a prosthetic aortic valve present. There is mild aortic valve regurgitation. The peak instantaneous gradient of the aortic valve is 69.2 mmHg. The mean gradient of the aortic valve is 35.0 mmHg. The aortic valve is bioprosthetic. Peak gradient measured around 69 mmHg. Mean gradient measured around 35 mmHg. Calculated aortic valve area by the continuity equation is 0.62 cm??? consistent with severe bioprosthetic aortic valve stenosis. Mitral Valve: The mitral valve is normal in structure. There is mild to moderate mitral valve regurgitation. Tricuspid Valve: The tricuspid valve is structurally normal. There is mild tricuspid regurgitation. The Doppler estimated RVSP is slightly elevated at 30.2 mmHg. Pulmonic Valve: The pulmonic valve is structurally normal. There is no indication of pulmonic valve regurgitation. Pericardium: There is no pericardial effusion noted. Aorta: The aortic root is normal. CONCLUSIONS: 1. Left ventricular systolic function is normal with a 60-65% estimated ejection fraction. 2. Mild LVH. 3. Mildly dilated left atrium. 4. Mildly dilated right atrium. 5. Mild to moderate mitral valve regurgitation. 6. Slightly elevated RVSP. 7. The aortic valve is bioprosthetic. Peak gradient measured around 69 mmHg. Mean gradient measured around 35 mmHg. Calculated aortic valve area by the continuity equation is 0.62 cm??? consistent with severe bioprosthetic aortic valve stenosis. 8. Mild aortic valve regurgitation. 9. When compared to prior study from 4 years earlier. The bioprosthetic aortic valve is now severely stenotic. QUANTITATIVE DATA SUMMARY: 2D MEASUREMENTS: Normal Ranges: Ao Root d: 2.30 cm (2.0-3.7cm) LAs: 2.90 cm (2.7-4.0cm) RVIDd: 2.40 cm (0.9-3.6cm) IVSd: 1.30 cm (0.6-1.1cm) LVPWd: 0.90 cm (0.6-1.1cm) LVIDd: 4.20 cm (3.9-5.9cm) LVIDs: 2.80 cm LV Mass Index: 95.7 g/m2 LV % FS 33.3 % LV SYSTOLIC FUNCTION BY 2D PLANIMETRY (MOD): Normal Ranges: EF-A4C View: 69.4 % (>=55%) LV DIASTOLIC FUNCTION: Normal Ranges: MV Peak E: 1.01 m/s (0.7-1.2 m/s) MV Peak A: 0.80 m/s (0.42-0.7 m/s) E/A Ratio: 1.25 (1.0-2.2) MV lateral e' 0.10 m/s MV medial e' 0.07 m/s E/e' Ratio: 10.10 (<8.0) MITRAL VALVE: Normal Ranges: MV Vmax: 1.06 m/s (<=1.3m/s) MV peak P.5 mmHg (<5mmHg) MV mean P.0 mmHg (<48mmHg) MITRAL INSUFFICIENCY: Normal Ranges: MR Vmax: 573.00 cm/s dP/dt: 1818 mmHg/s (>1200mmHg/sec) AORTIC VALVE: Normal Ranges: AoV Vmax: 4.16 m/s (<=1.7m/s) AoV Peak P.2 mmHg (<20mmHg) AoV Mean P.0 mmHg (1.7-11.5mmHg) LVOT Max Ramiro: 1.01 m/s (<=1.1m/s) AoV VTI: 96.10 cm (18-25cm) LVOT VTI: 25.30 cm LVOT Diameter: 1.80 cm (1.8-2.4cm) AoV Area, VTI: 0.67 cm2 (2.5-5.5cm2) AoV Area,Vmax: 0.62 cm2 (2.5-4.5cm2) AoV Dimensionless Index: 0.26 TRICUSPID VALVE/RVSP: Normal Ranges: Peak TR Velocity: 2.61 m/s RV Syst Pressure: 30.2 mmHg (< 30mmHg) PULMONIC VALVE: Normal Ranges: PV Max Ramiro: 0.8 m/s (0.6-0.9m/s) PV Max P.7 mmHg PIEDV: 1.53 m/s PADP: 12.4 mmHg [id number] Rolanda Sparks MD Electronically signed on 07/19/2023 at 8:45:[address] [facility] Office Visit (Cardiology)on 10-21-2022 Follow-up visit Diagnoses/Problems Assessed History of aortic valve replacement with bioprosthetic valve (V42.2) (Z95.3) Body mass index (BMI) of 24.0 to 24.9 in adult (V85.1) (Z68.24) Never a smoker Orders History of aortic valve replacement with bioprosthetic valve Echocardiogram; Status:Hold For - Scheduling,Retrospective Authorization; Requested for:[id number]; SocHx: Never a smoker Tobacco Use Screening; Status:Complete; Done: [id number] Patient Instructions Please bring all medicines, vitamins, and herbal supplements with you when you come to the office. Prescriptions will not be filled unless you are compliant with your follow up appointments or have a follow up appointment scheduled as per instruction of your physician. Refills should be requested at the time of your visit Follow up in 1 year. Echo Fall 2022 Chief Complaint FLOR HERNANDEZ is being seen for an annual follow-up of. History of Present Illness Patient returns in follow-up of problems as noted. She is done well. Its been a while since she has been seen but she states she is done well and she has been physically active and exercising with no angina dyspnea or arrhythmia symptomatology. Chart review reveals its been 3 years since her valve prosthesis has been evaluated because of this we recommend an echocardiogram at her convenience. She and her are heading to [place] for several months and I encouraged them to follow-up with me sometime next year. I advised him that if the echocardiogram necessitated a more timely visit we would make arrangements in this regard. Otherwise it appears she is doing well we suggest no change. Current Meds Medication NameInstruction CoQ10 100 MG Oral CapsuleTAKE 1 CAPSULE Daily Folic Acid 1 MG Oral TabletTAKE 1 TABLET TWICE DAILY. Ibandronate Sodium 150 MG Oral TabletTAKE 1 TABLET ONCE MONTHLY. Zebrev-5-Ujuglhbe Mamxjc846 MG 1 TABLET DAILY Synthroid 75 MCG Oral TabletTAKE 1 TABLET DAILY. Allergies Medication No Known Drug Allergies Recorded By: Zuleyka Patel; 08/05/2021 3:24:51 PM Social History Problems Daily caffeine consumption, 2-3 servings a day Never a smoker No illicit drug use Social alcohol use (V49.89) (Z78.9) Review of Systems Constitutional: not feeling tired. Eyes: no eyesight problems. ENT: no hearing loss and no nosebleeds. Cardiovascular: no intermittent leg claudication and as noted in HPI. Respiratory: no chronic cough and no shortness of breath. Gastrointestinal: no change in bowel habits and no blood in stools. Genitourinary: no urinary frequency. Skin: no skin rashes. Neurological: no seizures and no frequent falls. Psychiatric: no depression and not suicidal. All other systems have been reviewed and are negative for complaint. Vitals Vital Signs Recorded: [id number] 03:19PM Heart Rate64, R Radial Btiazrpy196, RUE, Sitting Lddugpufk66, RUE, Sitting Height5 ft 3 in Njcmar857 lb 6.4 oz BMI Bfzopvmvus15.16 kg/m2 BSA Calculated1.64 Tobacco Useb) No PHQ-2 #1. Over the last 2 weeks have you felt down, depressed or hopeless? (If yes, answer PHQ-9 below)No PHQ-2 #2. Over the last 2 weeks have you felt little interest or pleasure in doing things? (If yes, answer PHQ-9 below)No Falls Screening (Age 18+)a) No falls within the last year Physical Exam Constitutional: alert and in no acute distress. Eyes: no erythema, swelling or discharge from the eye . Neck: neck is supple, symmetric, trachea midline, no masses and no thyromegaly . Pulmonary: no increased work of breathing or signs of respiratory distress and lungs clear to auscultation. Cardiovascular: carotid pulses 2+ bilaterally with no bruit , JVP was normal, no thrills , regular rhythm, normal S1 and S2, no murmurs , pedal pulses 2+ bilaterally and no edema . Abdomen: abdomen non-tender, no masses and no hepatomegaly . Skin: skin warm and dry, normal skin turgor . Psychiatric judgment and insight is normal and oriented to person, place and time . Signatures Electronically signed by : Niranjan Russo MD; Oct 21 2022 5:04PM EST (Author) Normal [facility] Tobacco Screening.on Adult depression screening assessment No [facility] [employer] 250 DO Work Phone: Fall risk assessment a) No falls within the last year [facility] [employer] 250 DO Work Phone: Tobacco use status [facility] b) No [facility] [employer] 250 DO Work Phone: CBC AUTO DIFFon 07-30-2022 BASO # 0.0 103/ul Normal 0.0-0.1 [facility] Comment on above: Performed By: #### C BC #### [facility] [address] [place] [address] Dr. Ayan Seals Basophils/100 WBC (Bld) 0.7 % Normal 0.2-2.0 [facility] Comment on above: Performed By: #### C BC #### [facility] [address] [place] [address] [address] Ayan Seals EO # 0.2 103/ul Normal 0.0-0.7 [facility] Comment on above: Performed By: #### C BC #### [facility] [address] [place] [address] Dr. Ayan Seals Eosinophils/100 WBC (Bld) 4.9 % Normal 0.9-7.0 [facility] Comment on above: Performed By: #### C BC #### [facility] [address] [place] [address] Dr. Ayan Seals Erythrocyte distribution width (RBC) [Ratio] 13.2 % Normal 11.0-15.0 [facility] Comment on above: Performed By: #### C BC #### [facility] [address] [place] [address] Dr. Ayan Seals Hematocrit (Bld) [Volume fraction] 40.2 % Normal 36.0-48.0 [facility] Comment on above: Performed By: #### C BC #### [facility] [address] [place] [address] Dr. Ayan Seals Hemoglobin (Bld) [Mass/Vol] 13.0 g/dL Normal 12.0-16.0 [facility] Comment on above: Performed By: #### C BC #### [facility] [address] [place] [address] Dr. Ayan Seals IG # 0.01 10e3/ul Normal 0.00-0.03 [facility] Comment on above: Performed By: #### C BC #### [facility] [address] [place] [address] Dr. Ayan Seals IG % 0.2 % Normal 0.0-0.5 [facility] Comment on above: Performed By: #### C BC #### [facility] [address] [place] [address] Dr. Ayan Seals LYMPH # 1.2 103/ul Normal 1.2-3.8 [facility] Comment on above: Performed By: #### C BC #### [facility] [address] [place] [address] Dr. Ayan Seals Lymphocytes/100 WBC (Bld) 30.5 % Normal 20.5-60.0 [facility] Comment on above: Performed By: #### C BC #### [facility] [address] [place] [address] Dr. Ayan Seals MANUAL DIFF REQ NO Normal [facility] Comment on above: Performed By: #### C BC #### [facility] [address] [address] [address] Ayan Seals MCH (RBC) [Entitic mass] 29.5 pg Normal 26.7-34.0 [facility] Comment on above: Performed By: #### C BC #### [facility] [address] [place] [address] Dr. Ayan Seals MCHC (RBC) [Mass/Vol] 32.3 g/dL Normal 29.9-35.2 [facility] Comment on above: Performed By: #### C BC #### [facility] [address] [place] [address] Dr. Ayan Seals MCV (RBC) [Entitic vol] 91.4 fL Normal 81.0-99.0 [facility] Comment on above: Performed By: #### C BC #### [facility] [address] [place] [address] Dr. Ayan Seals MONO # 0.6 103/ul Normal 0.3-0.8 [facility] Comment on above: Performed By: #### C BC #### [facility] [address] [place] [address] Dr. Ayan Seals Monocytes/100 WBC (Bld) 14.5 % Critically high 1.7-12.0 [facility] Comment on above: Performed By: #### C BC #### [facility] [address] [place] [address] Dr. Ayan Seals NEUT # 2.0 103/ul Normal 1.4-6.5 [facility] Comment on above: Performed By: #### C BC #### [facility] [address] [place] [address] Dr. Ayan Seals Neutrophils/100 WBC (Bld) 49.2 % Normal 43.0-75.0 [facility] Comment on above: Performed By: #### C BC #### [facility] [address] [place] [address] Dr. Ayan Seals Platelet mean volume (Bld) [Entitic vol] 10.2 fL Normal 9.5-13.5 [facility] Comment on above: Performed By: #### C BC #### [facility] [address] [address] [address] Ayan Seals PLT 134 103/ul Critically low 150-450 [facility] Comment on above: Performed By: #### C BC #### [facility] [address] [address] [address] Ayan Seals RBC 4.40 106/ul Normal 4.20-5.40 [facility] Comment on above: Performed By: #### C BC #### [facility] [address] [address] [address] Ayan Seals WBC 4.1 103/ul Normal 4.0-11.0 [facility] Comment on above: Performed By: #### C BC #### [facility] [address] [place] [address] Dr. Ayan Seals LIPID PROFILEon 07-30-2022 CHOL-HDL RATIO NORM SEE BELOW Normal [facility] Comment on above: Result Comment: 3.3 - 4.4 LOW RISK 4.4 - 7.1 AVERAGE RISK 7.1 - 11.0 MODERATE RISK >11.0 HIGH RISK Performed By: #### B MP, TSH, LIPID #### [facility] [address] [place] [address] Dr. Ayan Seals Cholesterol [Mass/Vol] 259 mg/dL Critically high <=200 [facility] Comment on above: Performed By: #### B MP, TSH, LIPID #### [facility] [address] [place] [address] Dr. Ayan Seals Cholesterol in HDL [Mass/Vol] 66 mg/dL Critically high 40-60 [facility] Comment on above: Performed By: #### B MP, TSH, LIPID #### [facility] [address] [place] [address] Dr. Ayan Seals Cholesterol in LDL [Mass/Vol] 176.8 mg/dL Normal [facility] Comment on above: Performed By: #### B MP, TSH, LIPID #### [facility] [address] [place] [address] Dr. Ayan Seals Cholesterol.total/Chol esterol in HDL [Mass ratio] 3.9 {ratio} Normal [facility] Comment on above: Performed By: #### B MP, TSH, LIPID #### [facility] [address] [address] [address] Ayan Seals HDL NORMAL > or = 60 mg/dl - LO W CARDIOVASCULAR RISK <40 mg/dl - HIGH CARDIOVASCULAR RISK Normal [facility] Comment on above: Performed By: #### B MP, TSH, LIPID #### [facility] [address] [address] [address] Ayan Seals LDL CALC NORMAL SEE BELOW Normal [facility] Comment on above: Result Comment: <100 mg/dl OPTIMAL 100 - 129 mg/dl NEAR OR ABOVE OPTIMAL 130 - 159 mg/dl BORDERLINE HIGH 160 - 189 mg/dl HIGH >190 mg/dl VERY HIGH Performed By: #### B MP, TSH, LIPID #### [facility] [address] [address] [address] Ayan Seals Triglyceride [Mass/Vol] 81 mg/dL Normal <=150 [facility] Comment on above: Performed By: #### B MP, TSH, LIPID #### [facility] [address] [address] [address] Ayan Seals VLDL CALC 16.2 mg/dL Normal [facility] Comment on above: Performed By: #### B MP, TSH, LIPID #### [facility] [address] [address] [address] Ayan Seals PROF CHEM 8 (BAS METB)on Anion gap [Moles/Vol] 7.7 mmol/L Normal [facility] Comment on above: Performed By: #### B MP, TSH, LIPID #### [facility] [address] [address] [address] Ayan Seals Calcium [Mass/Vol] 8.6 mg/dL Normal 8.5-10.1 [facility] Comment on above: Performed By: #### B MP, TSH, LIPID #### [facility] [address] [address] [address] Ayan Seals Chloride [Moles/Vol] 109 mmol/L Critically high 98-107 [facility] Comment on above: Performed By: #### B MP, TSH, LIPID #### [facility] [address] [place] [address] Dr. Ayan Seals CO2 [Moles/Vol] 30.3 mmol/L Normal 21.0-32.0 [facility] Comment on above: Performed By: #### B MP, TSH, LIPID #### [facility] [address] [place] [address] Dr. Ayan Seals Creatinine [Mass/Vol] 0.87 mg/dL Normal 0.55-1.02 [facility] Comment on above: Performed By: #### B MP, TSH, LIPID #### [facility] [address] [place] [address] Dr. Ayan Seals EGFR-AF SAMOAN >60 Normal >=60 [facility] Comment on above: Performed By: #### B MP, TSH, LIPID #### [facility] [address] [place] [address] Dr. Ayan Seals EGFR-NON AF SAMOAN >60 Normal >=60 [facility] Comment on above: Performed By: #### B MP, TSH, LIPID #### [facility] [address] [place] [address] Dr. Ayan Seals Glucose [Mass/Vol] 92 mg/dL Normal 74-106 [facility] Comment on above: Performed By: #### B MP, TSH, LIPID #### [facility] [address] [place] [address] Dr. Ayan Seals Potassium [Moles/Vol] 4.0 mmol/L Normal 3.5-5.1 [facility] Comment on above: Performed By: #### B MP, TSH, LIPID #### [facility] [address] [place] [address] Dr. Ayan Seals Sodium [Moles/Vol] 143 mmol/L Normal 136-145 [facility] Comment on above: Performed By: #### B MP, TSH, LIPID #### [facility] [address] [place] [address] Dr. Ayan Seals Urea nitrogen [Mass/Vol] 12.0 mg/dL Normal 7.0-18.0 [facility] Comment on above: Performed By: #### B MP, TSH, LIPID #### [facility] [address] [address] [address] Ayan Seals Urea nitrogen/Creatinine [Mass ratio] 13.8 mg/mg Normal [facility] Comment on above: Performed By: #### B MP, TSH, LIPID #### [facility] [address] [address] [address] Ayan Seals TSHon 07-30-2022 TSH 4.392 uIU/mL Critically high 0.358-3.74 0 [facility] Comment on above: Performed By: #### B MP, TSH, LIPID #### [facility] [address] [place] [address] Dr. Ayan Seals No Panel Informationon 09-03 4.2\S\4.2 Normal 3.2-5.5 [facility] lk 600 DO Work Phone: 6.9\S\6.9 Normal 6.1-7.9 [facility] 600 DO Work Phone: 9.5\S\9.5 Normal 8.2-10.2 [facility] Work Phone: 25.9\S\25.9 Normal 22.0-30.0 [facility] DO Work Phone: 105\S\105 Normal 95-114 [facility] 600 DO Work Phone: 4.4\S\4.4 Normal 3.5-5.1 [facility] 600 DO Work Phone: 71\S\71 Normal 32-92 [facility] DO Work Phone: Comment on above: PERFORMED BY:[address] [address] [address] [place], [place] [id number] MEDICAL DIRECTORKATRIN GARCIA M.D. 9\S\9 below low threshold 10-60 [facility] Jovany talley 600 DO Work Phone: [phone] 19\S\19 Normal 10-42 [facility] Jovany talley 600 DO Work Phone: [phone] 0.5\S\0.5 Normal 0.0-0.8 [facility] Jovany talley 600 DO Work Phone: [phone] 1.6\S\1.[address] [facility] Jovany talley 600 DO Work Phone: [phone] 2.7\S\2.[address] [facility] Jovany talley 600 DO Work Phone: 140\S\140 Normal 136-146 [facility] Jovany talley 600 DO Work Phone: > [address] [facility] Jovany talley 600 DO Work Phone: [phone] Comment on above: GFR estimated refere nce range: According to KDOQI guidelines, <60 ml/min/1.73m2 is sufficient to diagnose a patient with chronic kidney disease. 57\S\[address] [facility] Jovany talley 600 DO Work Phone: 0.98\S\0.98 Normal 0.44-1.03 [facility] Jovany talley 600 DO Work Phone: 17\S\17 Normal 9-23 [facility] Jovany talley 600 DO Work Phone: 90\S\90 Normal 70-100 [facility] Jovany talley 600 DO Work Phone: [phone] Comment on above: Random Glucose Refer ence Range is dependent on time and content of last meal. Glucose of more than 200 mg/dL in a nonstressed, ambulatory subject supports the diagnosis of Diabetes Mellitus. ADA recommended reference range 62.7\S\62.[address] [facility] Jovany talley 600 DO Work Phone: 9.2\S\9.2 Normal 6.3-10.7 [facility] 600 DO Work Phone: 148\S\148 below low threshold 150-450 -[facility] 600 DO Work Phone: 13.6\S\13.6 Normal 11.9-15.3 -[facility] 600 DO Work Phone: 32.5\S\32.5 Normal 32.0-35.0 -[facility] 600 DO Work Phone: 29.3\S\29.3 Normal 24.7-34.3 -[facility] 600 DO Work Phone: 3.2\S\3.2 Normal 1.8-7.7 [facility] 600 DO Work Phone: 0.2\S\0.2 Normal 0-0.5 [facility] 600 DO Work Phone: 2.8\S\2.[address] [facility] 600 DO Work Phone: 10.1\S\10.[address] [facility] 600 DO Work Phone: 23.9\S\23.[address] [facility] 600 DO Work Phone: 0.0\S\0.0 Normal 0.0-0.2 [facility] 600 DO Work Phone: Comment on above: PERFORMED BY:[facility] [place] [id number] MEDICAL DIRECTORKATRIN GARCIA M.D. 0.1\S\0.1 Normal 0.0-0.45 [facility] 600 DO Work Phone: 1.2\S\1.2 Normal 1.00-4.8 [facility] 600 DO Work Phone: 90.3\S\90.3 Normal 80-100 [facility] [facility] 600 DO Work Phone: [phone] 44.2\S\44.2 Normal 34.0-46.4 [facility] 600 DO Work Phone: [phone] 14.3\S\14.3 Normal 11.8-15.4 [facility] 600 DO Work Phone: [phone] 4.90\S\4.90 Normal 3.60-5.00 [facility] 600 DO Work Phone: 5.2\S\5.2 Normal 3.8-11.6 [facility] 600 DO Work Phone: [phone] Falls Risk Screeningon 08-11 Fall risk assessment a) No falls within the last year [facility] Vanda toribio 250 DO Work Phone: [phone] Tobacco use status CPHS b) No [facility] toribio 250 DO Work Phone: [phone] Vital Signs Date Time Vital Sign Value Performing Clinician Facility 09-18-2024 13:57-0500 Body mass index (BMI) [Ratio] 23.1 kg/m2 [facility] 09-18-2024 13:57-0500 Diastolic blood pressure 89 mm[Hg] [facility] 09-18-2024 13:57-0500 Systolic blood pressure 139 mm[Hg] [facility] 09-18-2024 13:32-0500 Body height 160.02 cm [facility] 09-18-2024 13:32-0500 Body weight 59.08 kg [facility] 09-18-2024 13:32-0500 Heart rate 66 /min [facility] 09-18-2024 13:32-0500 Respiratory rate 12 /min [facility] 03-29-2024 10:58-0400 Body mass index (BMI) [Ratio] 23.56 kg/m2 Chelly Oneal MD Work Phone: [facility] 03-29-2024 10:58-0400 Body temperature 98.49 [degF] Chelly Oneal MD Work Phone: [facility] 03-29-2024 10:58-0400 Body weight 60.33 kg Chelly Oneal MD Work Phone: [facility] 03-29-2024 10:58-0400 Diastolic blood pressure 80 mm[Hg] Chelly Oneal MD Work Phone: [facility] 03-29-2024 10:58-0400 Heart rate 60 /min Chelly Oneal MD Work Phone: [facility] 03-29-2024 10:58-0400 SaO2% (BldA) [Mass fraction] 98 % Chelly Oneal MD Work Phone: [facility] 03-29-2024 10:58-0400 Systolic blood pressure 151 mm[Hg] Chelly Oneal MD Work Phone: [facility] 03-28-2024 15:00-0400 Body height 160 cm Niranjan Russo MD Work Phone: [facility] 03-28-2024 15:00-0400 Body mass index (BMI) [Ratio] 23.91 kg/m2 Niranjan Russo MD Work Phone: [facility] 03-28-2024 15:00-0400 Body weight 61.24 kg Niranjan Russo MD Work Phone: [facility] 03-28-2024 15:00-0400 Diastolic blood pressure 84 mm[Hg] Niranjan Russo MD Work Phone: [facility] 03-28-2024 15:00-0400 Heart rate 60 /min Niranjan Russo MD Work Phone: [facility] 03-28-2024 15:00-0400 Systolic blood pressure 142 mm[Hg] Niranjan Russo MD Work Phone: [facility] 02-27-2024 12:33-0400 Body height [address] 02-27-2024 12:33-0400 Body mass index (BMI) [Ratio] 23.74 kg/m2 [address] 02-27-2024 12:33-0400 Body weight 60.[address] 02-27-2024 12:33-0400 Diastolic blood pressure 82 mm[Hg] [address] 02-27-2024 12:33-0400 Systolic blood pressure 136 mm[Hg] [address] 12-15-2023 11:13-0500 Body temperature 97.81 [degF] Cehlly Oneal MD Work Phone: [facility] 12-15-2023 11:13-0500 Body weight 59.88 kg Chelly Oneal MD Work Phone: [facility] 12-15-2023 11:13-0500 Diastolic blood pressure 81 mm[Hg] Chelly Oneal MD Work Phone: [facility] 12-15-2023 11:13-0500 Heart rate 63 /min Chelly Oneal MD Work Phone: [facility] 12-15-2023 11:13-0500 Respiratory rate 15 /min Chelly Oneal MD Work Phone: [facility] 12-15-2023 11:13-0500 SaO2% (BldA) [Mass fraction] 95 % Chelly Oneal MD Work Phone: [facility] 12-15-2023 11:13-0500 Systolic blood pressure 155 mm[Hg] Chelly Oneal MD Work Phone: [facility] 10-21-2023 10:55-0500 Diastolic blood pressure 70 mm[Hg] DO Kaleb Ball Work Phone: [facility] 10-21-2023 10:55-0500 Heart rate 69 /min DO Kaleb Ball Work Phone: [facility] 10-21-2023 10:55-0500 Respiratory rate 14 /min DO Kaleb Ball Work Phone: [facility] 10-21-2023 10:55-0500 SaO2% (BldA) [Mass fraction] 99 % DO Kaleb Ball Work Phone: [facility] 10-21-2023 10:55-0500 Systolic blood pressure 118 mm[Hg] DO Kaleb Ball Work Phone: [facility] 10-21-2023 10:02-0500 Body temperature 98.4 [degF] DO Kaleb Ball Work Phone: [facility] 10-21-2023 09:32-0500 Inhaled oxygen flow rate 8 L/min DO Kaleb Ball Work Phone: [facility] 10-21-2023 06:33-0500 Body height 160.02 cm DO Kaleb Ball Work Phone: [facility] 10-21-2023 06:33-0500 Body weight 62.14 kg DO Kaleb Ball Work Phone: [facility] 09-20-2023 10:06-0500 Body height 160 cm Niranjan Russo MD Work Phone: [facility] 09-20-2023 10:06-0500 Body mass index (BMI) [Ratio] 23.74 kg/m2 Niranjan Russo MD Work Phone: [facility] 09-20-2023 10:06-0500 Body weight 60.78 kg Niranjan Russo MD Work Phone: [facility] 09-20-2023 10:06-0500 Diastolic blood pressure 84 mm[Hg] Niranjan Russo MD Work Phone: [facility] 09-20-2023 10:06-0500 Heart rate 76 /min Niranjan Russo MD Work Phone: [facility] 09-20-2023 10:06-0500 Systolic blood pressure 132 mm[Hg] Niranjan Russo MD Work Phone: [facility] 09-07-2023 08:45-0400 Body height 160 cm Suresh Newsome MD Work Phone: [facility] 09-07-2023 08:45-0400 Body mass index (BMI) [Ratio] 24.02 kg/m2 Suresh Newsome MD Work Phone: [facility] 09-07-2023 08:45-0400 Body weight 61.51 kg Suresh Newsome MD Work Phone: [facility] 09-07-2023 08:45-0400 Diastolic blood pressure 84 mm[Hg] Suresh Newsome MD Work Phone: [facility] 09-07-2023 08:45-0400 Heart rate 68 /min Suresh Newsome MD Work Phone: [facility] 09-07-2023 08:45-0400 SaO2% (BldA) [Mass fraction] 96 % Suresh Newsome MD Work Phone: [facility] 09-07-2023 08:45-0400 Systolic blood pressure 146 mm[Hg] Suresh Newsome MD Work Phone: [facility] 08-29-2023 11:00-0400 Body height 160 cm Niranjan Russo MD Work Phone: [facility] 08-29-2023 11:00-0400 Body mass index (BMI) [Ratio] 24.27 kg/m2 Niranjan Russo MD Work Phone: [facility] 08-29-2023 11:00-0400 Body weight 62.14 kg Niranjan Russo MD Work Phone: [facility] 08-29-2023 11:00-0400 Diastolic blood pressure 82 mm[Hg] Niranjan Russo MD Work Phone: [facility] 08-29-2023 11:00-0400 Heart rate 66 /min Niranjan Russo MD Work Phone: [facility] 08-29-2023 11:00-0400 Systolic blood pressure 134 mm[Hg] Niranjan Russo MD Work Phone: [facility] 08-22-2023 14:30-0400 Body temperature 97.6 [degF] DO Kaleb Ball Work Phone: [facility] 08-22-2023 14:30-0400 Diastolic blood pressure 73 mm[Hg] DO Kaleb Ball Work Phone: [facility] 08-22-2023 14:30-0400 Heart rate 59 /min DO Kaleb Ball Work Phone: [facility] 08-22-2023 14:30-0400 Respiratory rate 18 /min DO Kaleb Ball Work Phone: [facility] 08-22-2023 14:30-0400 SaO2% (BldA) [Mass fraction] 99 % DO Kaleb Ball Work Phone: [facility] 08-22-2023 14:30-0400 Systolic blood pressure 146 mm[Hg] DO Kaleb Ball Work Phone: [facility] 08-22-2023 11:56-0400 Body height 160.02 cm DO Kaleb Ball Work Phone: [facility] 08-22-2023 11:56-0400 Body weight 61.7 kg DO Kaleb Ball Work Phone: [facility] 08-09-2023 15:15-0400 Body height 160 cm Mayte Lobo [employer] Work Phone: [facility] 08-09-2023 15:15-0400 Body mass index (BMI) [Ratio] 24.09 kg/m2 Mayte Lobo MOTOR [employer] INS[employer]SE Work Phone: [facility] 08-09-2023 15:15-0400 Body weight 61.69 kg Mayte Lobo MOTOR [employer]ER INSPECTOR[employer]SE Work Phone: [facility] 08-09-2023 15:15-0400 Diastolic blood pressure 70 mm[Hg] Mayte Lobo MOTOR [employer] INSPECTOR[employer]SE Work Phone: [facility] 08-09-2023 15:15-0400 Heart rate 68 /min Mayte Lobo MOTOR [employer] INSPECTOR[employer]SE Work Phone: [facility] 08-09-2023 15:15-0400 Systolic blood pressure 132 mm[Hg] Mayte Lobo MOTOR [employer]ER INSPECTOR[employer]SE Work Phone: [facility] 07-29-2023 11:00-0400 Body height 158.75 cm Kaleb Ball Other [facility] [employer] Other 07-29-2023 11:00-0400 Body mass index (BMI) [Ratio] 24.3 kg/m2 Kaleb Ball Other [facility] [employer] Other 07-29-2023 11:00-0400 Body weight 61.24 kg Kaleb Ball Other [facility] [employer] Other 07-29-2023 11:00-0400 Diastolic blood pressure 80 mm[Hg] Kaleb Ball Other [employer] Other 07-29-2023 11:00-0400 Respiratory rate 12 /min Kaleb Ball Other [employer] Other 07-29-2023 11:00-0400 Systolic blood pressure 147 mm[Hg] Kaleb Ball Other [employer] Other 10-21-2022 15:19-0500 Body height 160.02 cm Kaleb E Ball Work Phone: [facility] 250 DO Work Phone: 10-21-2022 15:19-0500 Body mass index (BMI) [Ratio] 24.16 kg/m2 Kaleb E Ball Work Phone: [facility] 250 DO Work Phone: 10-21-2022 15:19-0500 Body surface area Derived from formula 1.64 m2 Kaleb E Ball Work Phone: [facility] 250 DO Work Phone: 10-21-2022 15:19-0500 Body weight 61.87 kg Kaleb E Ball Work Phone: [facility] 250 DO Work Phone: 10-21-2022 15:19-0500 Diastolic blood pressure 78 mm[Hg] Kaleb E Ball Work Phone: [facility] 250 DO Work Phone: 10-21-2022 15:19-0500 Heart rate 64 /min Kaleb Smith Ball Work Phone: [facility] 250 DO Work Phone: 10-21-2022 15:19-0500 Systolic blood pressure 138 mm[Hg] Kaleb Smith Ball Work Phone: [facility] 250 DO Work Phone: 02-17-2022 15:54-0400 Body height 160.02 cm Kaleb Smith Ball Work Phone: [facility] 250 DO Work Phone: 02-17-2022 15:54-0400 Body mass index (BMI) [Ratio] 23.91 kg/m2 Kaleb Smith Ball Work Phone: [facility] 250 DO Work Phone: 02-17-2022 15:54-0400 Body surface area Derived from formula 1.64 m2 Kaleb E Ball Work Phone: [facility] 250 DO Work Phone: 04-13-2022 15:54-0400 Body weight 61.24 kg Kaleb Smith Ball Work Phone: [facility] 250 DO Work Phone: 02-17-2022 15:54-0400 Diastolic blood pressure 82 mm[Hg] Kaleb E Ball Work Phone: [facility] 250 DO Work Phone: 02-17-2022 15:54-0400 Heart rate 68 /min Kaleb E Ball Work Phone: [facility] 250 DO Work Phone: 02-17-2022 15:54-0400 Systolic blood pressure 148 mm[Hg] Kaleb E Ball Work Phone: [facility] 250 DO Work Phone: 08-11-2021 08:58-0400 Body height 160.02 cm Kaleb Smith Ball Work Phone: [facility] 250 DO Work Phone: 08-11-2021 08:58-0400 Body mass index (BMI) [Ratio] 24.09 kg/m2 Kaleb E Ball Work Phone: [facility] 250 DO Work Phone: 08-11-2021 08:58-0400 Body surface area Derived from formula 1.64 m2 Kaleb E Ball Work Phone: [facility] 250 DO Work Phone: 08-11-2021 08:58-0400 Body weight 61.69 kg Kaleb E Ball Work Phone: [facility] 250 DO Work Phone: 08-11-2021 08:58-0400 Diastolic blood pressure 68 mm[Hg] Kaleb E Ball Work Phone: [facility] 250 DO Work Phone: 08-11-2021 08:58-0400 Heart rate 72 /min Kaleb Nassar Work Phone: [facility] 250 DO Work Phone: 08-11-2021 08:58-0400 Systolic blood pressure 122 mm[Hg] Kaleb Nassar Work Phone: [facility] 250 DO Work Phone: Encounters Encounter Date Encounter Type Care Provider Facility Start: 09-18-2024 End: 09-18-2024 ambulatory [facility] Work Phone: Start: 09-18-2024 End: 09-18-2024 Patient encounter procedure [facility] Physician [facility] Work Phone: Start: 09-16-2024 Patient encounter procedure [facility] Start: 09-12-2024 Non-patient / Non-visit [facility] Physician [facility] Work Phone: Start: 03-29-2024 End: 03-29-2024 ambulatory CHELLY ONEAL Facility:[facility] Start: 03-29-2024 End: 03-29-2024 ambulatory Chelly Oneal MD Work Phone: Gynecology Comment on above: Thickened endometriu m [R93.89] (Primary Dx) Start: 03-29-2024 End: 03-29-2024 Patient encounter procedure Chelly Oneal MD Work Phone: Gynecology Start: 03-28-2024 End: 03-28-2024 Office outpatient visit 25 minutes Niranjan Russo MD Work Phone: [facility] Comment on above: History of aortic va lve replacement with bioprosthetic valve; Paroxysmal atrial fibrillation (Multi); Nonrheumatic aortic valve stenosis; Coronary artery disease (CAD) excluded Start: 03-28-2024 End: 03-28-2024 ambulatory NIRANJAN RUSSO [facility] Ambulatory Start: 03-26-2024 End: 03-26-2024 ambulatory RADHA SAMUEL Not Available Start: 03-22-2024 ambulatory FANNY LUKE Facil ity:[facility] Start: 03-22-2024 End: 03-22-2024 Subsequent hospital visit by physician Soledad Cerrato (I-Stat/1.5t) Work Phone: Radiology Comment on above: PMB (postmenopausal bleeding) [N95.0] Start: 03-21-2024 Telephone encounter Carol Ann Hooper (Pss) Radiology Comment on above: Appointment (Appoint ment reminder call- spoke with patient- gave directions to the office) Start: 02-27-2024 End: 02-27-2024 ambulatory [facility] Start: 02-27-2024 End: 02-27-2024 Subsequent hospital visit by physician Stormy Moss Echo/Vasc Room 2 [facility] Comment on above: History of aortic va lve replacement with bioprosthetic valve; Nonrheumatic aortic valve stenosis Start: 02-21-2024 End: 02-21-2024 ambulatory RADHA SAMUEL Not Available Start: 12-15-2023 End: 12-15-2023 ambulatory Chelly Oneal MD Work Phone: Gynecology Comment on above: PMB (postmenopausal bleeding) (Primary Dx); Cervical stenosis (uterine cervix) [N88.2] Start: 12-15-2023 End: 12-15-2023 Patient encounter procedure Chelly Oneal MD Work Phone: [facility] Start: 11-30-2023 ambulatory KALEB Watkins y:[facility] Start: 11-30-2023 End: 11-30-2023 Subsequent hospital visit by physician Soledad Cerrato (I-Stat/1.5t) Work Phone: Radiology Comment on above: PMB (postmenopausal bleeding) [N95.0] Start: 11-21-2023 End: 11-21-2023 ambulatory FANNY LUKE Facility:[facility] Start: 11-18-2023 End: 11-18-2023 ambulatory CHELLY ONEAL Facility:[facility] Start: 11-18-2023 Encounter for other preprocedural examination CHELLY ONEAL [facility] Start: 11-17-2023 ambulatory KALEB NASSAR Facilit y:[facility] Start: 11-14-2023 End: 11-15-2023 ambulatory AIDAN LITTLE Facility:[facility] Start: 11-14-2023 Encounter for other preprocedural examination AIDAN LITTLE [facility] Start: 11-14-2023 End: 11-15-2023 ambulatory RISA CERVANTES Facility:[facility] Start: 11-01-2023 End: 11-01-2023 ambulatory Kaleb Maday Other [employer] Other Start: 11-01-2023 Office outpatient vi sit 15 minutes Kaleb Nassar [facility] Maday [facility] Start: 10-21-2023 End: 10-21-2023 ambulatory Aidan Little Facility:[facility] Start: 10-21-2023 End: 10-21-2023 Admission to same day surgery center DO Kaleb Nassar Work Phone: [facility] [place] Start: 10-21-2023 End: 10-21-2023 ambulatory DO Kaleb Nassar Work Phone: [facility] Work Phone: Start: 09-22-2023 End: 09-22-2023 ambulatory RADHA A LIZZIE Not Available Start: 09-22-2023 End: 09-22-2023 ambulatory Kaleb Nassar Facility:[facility] Start: 09-22-2023 End: 09-22-2023 ambulatory DO Kaleb Nassar Work Phone: [facility] Work Phone: Start: 09-22-2023 End: 09-22-2023 Patient encounter procedure DO Kaleb Nassar [facility] Work Phone: Start: 09-20-2023 End: 09-20-2023 Office outpatient visit 25 minutes Niranjan Russo MD Work Phone: [facility] Comment on above: History of aortic va lve replacement with bioprosthetic valve; Paroxysmal atrial fibrillation (CMS/HCC); Nonrheumatic aortic valve stenosis; Coronary artery disease (CAD) excluded Start: 09-20-2023 End: 09-20-2023 ambulatory [facility] Amb[facility] Start: 09-07-2023 End: 09-07-2023 ambulatory SURESH NEWSOME [facility] Start: 09-07-2023 End: 09-07-2023 Office outpatient new 60 minutes Gloria Decker MD Work Phone: [facility] Comment on above: Stenosis of prosthet ic aortic valve, initial encounter Start: 09-07-2023 End: 09-07-2023 Office outpatient new 45 minutes Suresh Newsome MD Work Phone: [facility] Comment on above: History of aortic va lve replacement with bioprosthetic valve; Nonrheumatic aortic valve stenosis Start: 08-31-2023 End: 08-31-2023 ambulatory Kaleb Nassar Facility:[facility] Start: 08-31-2023 End: 08-31-2023 ambulatory DO Kaleb Ball Work Phone: [facility] Work Phone: Start: 08-31-2023 End: 08-31-2023 Patient encounter procedure DO Kaleb Ball Work Phone: [facility] [place] Work Phone: Start: 08-29-2023 End: 08-29-2023 ambulatory [facility] Start: 08-29-2023 End: 08-29-2023 Office outpatient visit 25 minutes Niranjan Russo MD Work Phone: [facility] Comment on above: History of aortic va lve replacement with bioprosthetic valve; Paroxysmal atrial fibrillation (CMS/HCC); Nonrheumatic aortic valve stenosis; Coronary artery disease (CAD) excluded Start: 08-22-2023 Telephone encounter Kaleb Nassar [facility] Maday [facility] Start: 08-22-2023 End: 08-22-2023 ambulatory Kaleb Nassar Facility:[facility] Start: 08-22-2023 End: 08-22-2023 Admission to same day surgery center DO Kaleb Nassar Work Phone: [facility] Work Phone: Start: 08-22-2023 End: 08-22-2023 ambulatory DO Kaleb Nassar Work Phone: [facility] Work Phone: Start: 08-19-2023 End: 08-19-2023 ambulatory Niranjan Christopher Finleykajal Facility:[facility] Start: 08-19-2023 End: 08-19-2023 ambulatory DO Kaleb Nassar Work Phone: [facility] Work Phone: Start: 08-19-2023 End: 08-19-2023 Patient encounter procedure DO Kaleb Nassar Work Phone: [facility] Work Phone: Start: 08-16-2023 End: 08-16-2023 ambulatory Kaleb Nassar Other [employer] Other Start: 08-16-2023 Telephone encounter Kaleb Maday BROWNLEE Maday [facility] Start: 08-09-2023 End: 08-09-2023 ambulatory [facility] Start: 08-09-2023 End: 08-09-2023 Office outpatient visit 15 minutes [facility] MOTOR CARRIER INSPECTOR-IDENTIFIER HORSE Work Phone: [facility] Comment on above: Paroxysmal atrial fi brillation (CMS/HCC) (Primary Dx); History of aortic valve replacement with bioprosthetic valve; Nonrheumatic aortic valve stenosis; Abnormal echocardiogram; Coronary artery disease (CAD) excluded Start: 07-29-2023 End: 07-29-2023 ambulatory Kaleb Nassar Other [employer] Other Start: 07-29-2023 Patient encounter procedure Kaleb Nassar [facility] Start: 07-29-2023 Chart Update Kaleb sepulveda Work Phone: [facility] 250 DO Work Phone: Start: 07-18-[address] Niranjan Russo II Facility:[id number] Start: 10-21-2022 Office outpatient vi sit 15 minutes Kaleb Smith Ball Work Phone: [facility] 250 DO Work Phone: Start: 10-21-2022 ambulatory Niranjan Russo II Facility:[id number] Start: 09-17-2022 End: 09-17-2022 ambulatory DO Kaleb Ball Work Phone: [facility] Work Phone: Start: 09-17-2022 End: 09-17-2022 Patient encounter procedure DO Kaleb Ball Work Phone: [facility] Start: 07-30-2022 End: 07-31-[address] KALEB NASSAR Facility:[facility]1 Start: 02-17-2022 Patient encounter procedure Kaleb Sarah Ball Work Phone: [facility] 250 DO Work Phone: Start: 02-17-2022 ambulatory [facility] Facility:[id number] Start: 02-12-2022 Message Kaleb sepulveda Work Phone: [facility] 250 DO Work Phone: Start: 09-04-2021 Chart Update Kaleb Chau l Work Phone: [facility] 600 DO Work Phone: Start: 08-11-2021 Office outpatient vi sit 15 minutes Kaleb E Ball Work Phone: [facility] 250 DO Work Phone: Start: 05-02-2018 End: 05-09-2018 [facility] Start: 05-01-2018 End: 05-09-2018 Patient encounter status [facility] Start: 03-10-2018 End: 03-11-2018 Ambulatory DEFAULT PHYSICIAN Facility:[facility] Patient encounter status Benjami n E Ball Work Phone: -[facility] 250 DO Work Phone: Procedures Date Procedure Procedure Detail Performing Clinician Start: 03-29-2024 Follow-up visit Follow Up ZABRINA ONEAL Start: 03-22-2024 Mri pelvis w/o & w/c ontrast material Fanny Luke APRN.IDENTIFIER HORSE Work Phone: Start: 02-27-2024 TRANSTHORACIC ECHO ( TTE) COMPLETE NIRANJAN RUSSO Start: 11-30-2023 Mri pelvis w/o & w/c ontrast material Chelly Oneal MD Work Phone: Start: 11-14-2023 Antibody screen AIDAN LITTLE Comment on above: Order Comment: Speci men Type: BLOOD SPECIMEN Ordering Facility: [facility] Address: [address] [place] [address] Performed By: #### T [id number] #### [facility] CLIA [id number] [address] [place] [address] [place] Start: 10-21-2023 Hysteroscopy DO Benjami n Ball Work Phone: Start: 09-22-2023 Screening mammograph y of bilateral breasts DO Kaleb Metail Work Phone: Start: 09-20-2023 FOLLOW UP IN CARDIOLOGY NIRANJAN RUSSO Start: 09-07-2023 AMB REFERRAL TO VALV E AND STRUCTURAL HEART PROGRAM SURESH NEWSOME Start: 08-22-2023 CL Coronary Angio (Right) DO Kaleb Metail Work Phone: Start: 07-18-2023 Echocardiography Benjam in E Metail Work Phone: Start: 09-17-2022 End: 09-17-2022 Screening mammography of bilateral breasts DO Kaleb Metail Work Phone: Start: 06-03-2020 Total colonoscopy Pradeep min E Metail Work Phone: Start: 08-18-2018 Lipid 1996 panel - S scott or Plasma Chelly Oneal MD Work Phone: Augmentation mammoplasty Andrzej Nassar Work Phone: Kidney operation Kaleb Nassar Work Phone: Replacement of aortic valve Kaleb Smith Maday Work Phone: Surgical procedure o n eye proper Kaleb Smith Maday Work Phone: Comment on above: EYE LIDS AND EYE BRO WS; Plan of Treatment Date Care Activity Detail Author Start: 11-14-2026 Diabetes Screening Diabetes Screenin g [facility] Start: 10-16-2024 End: 10-16-2024 Patient encounter procedure 10/16/2024 2:20 PM EST Office Visit [address] [place] [address] Niranjan Saxena DO [address] [facility] [address] [place] [address] [facility] Start: 07-08-2024 Covid-19 Vaccine ( season) Covid-19 Vaccine ( season) [facility] Start: 07-08-2024 Influenza vaccination [facility] Start: 03-29-2024 End: 03-29-2024 ambulatory 03/29/2024 10:45 AM EDT Visit (SP) Office Gynecology [address] [place] [address] Chelly Oneal MD [address] [place], [place] [id number] [phone] MONTH FU REVIEW MRI RESULTS Gynecology Comment on above: 3 MONTH FU REVIEW MR I RESULTS Start: 03-28-2024 End: 03-28-2024 Patient encounter procedure 03/28/2024 2:50 PM EDT Office Visit [facility] [address] [facility] [address] [place] [address] Niranjan Russo MD [address] [facility] [address] [place] [address] [facility] Start: 03-22-2024 End: 03-22-2024 Patient encounter procedure 03/22/2024 11:20 AM EDT Appointment Radiology [address] [place] [address] MRI FEMALE PELVIS W/WO IV CONTRAST Radiology Comment on above: MRI FEMALE PELVIS W/ WO IV CONTRAST Start: 02-27-2024 End: 02-27-2024 Patient encounter procedure 02/27/2024 12:30 PM EDT Appointment [facility] [address] [place] [address] [facility] Start: 02-03-2024 End: 09-20-2025 Heart Transthoracic Transthoracic Echo (TTE) Complete Echocardiography Routine History of aortic valve replacement with bioprosthetic valve Nonrheumatic aortic valve stenosis Expected: 02/03/2024 (Approximate), Expires: 09/20/2025 [facility] Service Area Work Phone: Comment on above: Expected: 02/03/2024 (Approximate), Expires: 09/20/2025 Start: 11-07-2023 Advance Directive Discussion Advance Directive Discussion [facility] Start: 11-07-2023 Behavioral Health Screening Behavioral Health Screening [facility] Start: 11-07-2023 Depression Assessment Depression Ass essment [facility] Start: 10-21-2023 End: 10-21-2023 [facility] Start: 09-21-2023 FUV, Provider: Niranjan Russo, Status: Pen, Time: 1:30 PM FUV, Provider: Niranjan Russo, Status: Akbar, Time: 1:[address] [facility] 250 DO Work Phone: Start: 09-21-2023 End: 09-21-2023 Patient encounter procedure 09/21/2023 1:30 PM EST Office Visit [facility] [address] [facility] [address] [place] [address] Niranjan Russo MD [address] [place] [address] [facility] Start: 09-17-2023 Screening for malign ant neoplasm of breast [facility] Start: 09-16-2023 Screening for osteoporosis Bone Density Scan [facility] Start: 08-22-2023 [facility] Start: 08-18-2023 Lipid panel Lipid Screening [facility] Start: 08-09-2023 FUV, Provider: Mayte Ortega, Status: Pen, Time: 3:00 PM FUV, Provider: Mayte Ortega, Status: Pen, Time: 3:00 PM [facility] 250 DO Work Phone: Start: 07-18-2023 ECHO, Provider: MICKY [facility] ULTRASOUND 01,[id number], Status: Pen, Time: 10:45 AM ECHO, Provider: MICKY [facility] ULTRASOUND 01,[id number], Status: Pen, Time: 10:45 AM -[facility] 250 DO Work Phone: Start: 07-08-2023 Covid-19 Vaccine ( season) Covid-19 Vaccine ( season) [facility] Start: 07-08-2023 Influenza vaccination Influenza Vacc ine (#1) [facility] Start: 09-16-2022 Screening for osteoporosis Bone Density Scan [facility] Start: 08-17-2022 FUV, Provider: Niranjan Russo, Status: Pen, Time: 10:00 AM FUV, Provider: Niranjan Russo, Status: Pen, Time: 10:00 AM -[facility] 250 DO Work Phone: Start: 08-26-2021 Pneumococcal Vaccine : 65+ (2 of 2 - PCV) Pneumococcal Vaccine: 65+ (2 of 2 - PCV) [facility] Start: 2020 Screening for osteoporosis Bone Density Screening [facility] Start: 2015 RSV patient s and/or patients aged 60+ years (1 - 1-dose 60+ series) RSV patients and/or patients aged 60+ years (1 - 1-dose 60+ series) [facility] Start: 2015 RSV Vaccine (1 - 1-d ose 60+ series) RSV Vaccine (1 - 1-dose 60+ series) [facility] Start: 2005 Shingrix Vaccine (1 of 2) Shingrix Vaccine (1 of 2) [facility] Start: 2005 Zoster Vaccines (1 o f 2) Zoster Vaccines (1 of 2) [facility] Start: 2000 Screening for malign ant neoplasm of colon [facility] Start: 1995 Screening for malign ant neoplasm of breast [facility] Start: 1977 DTaP/Tdap/Td Vaccine s (1 - Tdap) DTaP/Tdap/Td Vaccines (1 - Tdap) [facility] Start: 1974 Urine microalbumin profile DTaP,Tdap,Td Vaccine (1 - Tdap) [facility] Start: 1973 Annual PCP Team Field Sales Associate mya Disease Visit Annual PCP Team Chronic Disease Visit [facility] Start: 1973 Anxiety Screening Anxiety Screening [facility] Start: 1973 Depression Screening Depression Scre ening [facility] Start: 1973 Diabetes mellitus screening Diabetes Screening [facility] Start: 1973 Hepatitis C screening Hepatitis C [facility] Start: 1961 Pneumococcal Vaccine : 65+ Years (1 - PCV) Pneumococcal Vaccine: 65+ Years (1 - PCV) [facility] Start: 1961 Pneumococcal Vaccine : 65+ Years (1 of 2 - PCV) Pneumococcal Vaccine: 65+ Years (1 of 2 - PCV) [facility] Start: 02-27-1956 COVID-19 Vaccine (#1) COVID-19 Vacci ne (#1) [facility] Start: 1955 Lipid panel Lipid Panel [facility] Start: 1955 Medicare Annual Wellness Visit Medicare Annual Wellness Visit (AWV) [facility] Start: 1955 Screening for malign ant neoplasm of colon [facility] Start: 1955 Thyroid stimulating hormone measurement TSH Level [facility] Comprehensive metabo lic 2000 panel - Serum or Plasma [facility] End: 01-13-2025 MR Pelvis WO and W contrast IV MRI FEMALE PELVIS WO/W IVCON Radiology Routine PMB (postmenopausal bleeding) 1 Occurrences starting 12/15/2023 until 01/13/2025 [facility] Work Phone: Comment on above: 1 Occurrences starti ng 12/15/2023 until 01/13/2025 Patient Education Dilation and C urettage (DC) [facility] Work Phone: Patient referral [facility] Work Phone: End: 02-27-2024 US Heart Transthoracic [facility] Service Area Work Phone: Comment on above: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 Diagnosis Date Aortic stenosis Hard to intubate High cholesterol Hypothyroid Kidney disease acute kidney injury, Left nephrectomy Osteoporosis Renal artery stenosis (HCC) Bilateral. Left Nephrectomy as result FAMILY HISTORY Problem Relation Age of Onset Hypertension Mother Diabetes Mother Breast Cancer Mother No Known Problems Father Hypertension Brother Stroke Maternal Grandmother Colon Cancer Maternal Grandmother SOCIAL HISTORY Social History Tobacco Use Smoking status: Never Smokeless tobacco: Never Substance Use Topics Alcohol use: Yes Comment: very occasional Drug use: No Occupation: retired Marital Status: SUBJECTIVE/INTERVAL HISTORY: Flor Hernandez reports that she feels well. No vaginal bleeding or discharge. No shortness of breath, cough, or chest pain. No abdominal pain, nausea, vomiting, diarrhea, or constipation. No dysuria, gross hematuria, urinary frequency, urinary urgency, or incontinence. Her ECOG performance status is zero (fully active, able to carry on all pre-disease performance without restriction). OBJECTIVE: VITALS: BP 155/81 Pulse 63 Temp 36.6 C (97.8 F) Resp 15 Wt 59.9 kg (132 lb) LMP (LMP Unknown) SpO2 95% BMI 23.38 kg/m GENERAL: alert, oriented, pleasant, and cooperative. ASSESSMENT: 68 y.o female presents for evaluation of post menopausal bleeding and inability to obtain endometrial sampling with recent D&C. 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 Patient has a complex medical and surgical history as outlined below. NOW s/p EUA, hysteroscopy 11/18/23. Hysteroscopy was attempted but ultimately aborted due to inability to identify a uterine cavity and concern for uterine perforation into the posterior cul de sac due to severe cervical stenosis. Patient presents today for MRI review. Post menopausal bleeding I reviewed MRI images which show endometrial fluid collection but the lining itself appears thin. I explained that the uterine fluid is likely due to her cervical stenosis with prior LEEP procedure. There is no mass seen which is reassuring. I discussed my low concern for uterine pathology and we will plan to repeat MRI in 3 months for active surveillance. Given the high risks of surgical intervention given her prior surgical history I favor observation at this time. In light of her vaginal bleeding, there was significant vaginal atrophy encountered during EUA, I recommend trial of vaginal estrogen which may help with symptoms. Patient agreeable to rx. Aortic valve replacement for calcified bicuspid valve 2017, follows with Dr. Russo locally with echo q6 months, and has seen doctors Suresh Newsome (cards) Grabiel Decker (CT surgery) Cardiology clearance from EUA hysteroscopy scanned in HX b/l renal artery stenosis - required XL and left nephrectomy in 20s, then in her 30s had avascular renastomosis with transposition of right kidney This was done by Derrick Phan MD and travel pta Kristen Kelley at . PLAN: Follow up in 3 months with repeat MRI Will send Rx for vaginal estrogen cream ATTESTATION: By signing my name below, I, Lizzy Parada, attest that this documentation has been prepared under the direction and in the presence of Chelly Oneal MD. Electronically signed: Karl Arriaza, December 15, 2023 11:52 AM Chelly Oneal MD Medical Decision Making: Problems: Moderate: 2+ stable chronic illnesses Data: Unique test result(s) reviewed: 1 Risk: Low: Low risk from testing/treatment Moderate: Drug management Medical Decision Making Level: 4 - Moderate Please send a letter and a copy of this office note to: Aidan Little ([place]) [address] [facility] [address] [facility] [id number] documented in this encounter [facility] 11-30-2023 Miscellaneous Notes Radiology Service Progress Note DATE OF SERVICE: November 30, 2023 TIME: 9:31 AM PATIENT IDENTITY VERIFICATION COMPLETED USING TWO (2) STANDARD IDENTIFIERS: Name and Date of confirmed by patient verbally and Name and Date of confirmed by identification band. FALL SCREENING: Has the patient had 2 falls in the last year or 1 fall with injury or currently using an Ambulatory Assistive Device (Walker, Cane, Wheelchair, Crutches, etc.)? No PATIENT GENDER DATA: Female. status: : No status: NO. PATIENT RELEVANT IMPLANT DATA REVIEWED: Yes ALLERGIES: Reviewed and unchanged CONTRAST ALLERGY: NO. EXAM: MRI - CONTRAST TYPE: GROUP II PERIPHERAL IV DATA: Ambulatory: A peripheral IV was started in the Right antecubital site with a Butterfly: 23 gauge. RADIOLOGY DEPARTMENT: MR; Exam(s) Completed: Body: Female Pelvis SIGNATURE: SOLEDAD Garduno PATIENT NAME: Flor Hernandez DATE: November 30, 2023 TIME: 9:31 AM documented in this encounter [facility] 11-30-2023 Progress note Formatting of t his note is different from the original. Radiology Service Progress Note DATE OF SERVICE: November 30, 2023 TIME: 9:31 AM PATIENT IDENTITY VERIFICATION COMPLETED USING TWO (2) STANDARD IDENTIFIERS: Name and Date of confirmed by patient verbally and Name and Date of confirmed by identification band. FALL SCREENING: Has the patient had 2 falls in the last year or 1 fall with injury or currently using an Ambulatory Assistive Device (Walker, Cane, Wheelchair, Crutches, etc.)? No PATIENT GENDER DATA: Female. status: : No status: NO. PATIENT RELEVANT IMPLANT DATA REVIEWED: Yes ALLERGIES: Reviewed and unchanged CONTRAST ALLERGY: NO. EXAM: MRI - CONTRAST TYPE: GROUP II PERIPHERAL IV DATA: Ambulatory: A peripheral IV was started in the Right antecubital site with a Butterfly: 23 gauge. RADIOLOGY DEPARTMENT: MR; Exam(s) Completed: Body: Female Pelvis SIGNATURE: SOLEDAD Garduno PATIENT NAME: Flor Hernandez DATE: November 30, 2023 TIME: 9:31 AM [facility] 11-18-2023 Note HNO ID: [id number] Author: QUOC WAGNER APRN.DUMBWAITER OPERATOR Service: Anesthesiology Author Type: Nurse Motor Bus Driver Type: Anesthesia Procedure Notes Filed: 11/18/2023 11:09 Note Text: ANESTHESIOLOGY PROCEDURE NOTE Airway General Information Procedure Start Time/Medication Administration: 11/18/2023 11:08 AM Patient location during procedure: OR Timeout Performed Pre-procedure: timeout performed Consent Obtained: Yes 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 confirmed: 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 and patient Staffing Anesthesiologist: Mike Snyder DO DUMBWAITER OPERATOR: Quoc Wagner APRN.DUMBWAITER OPERATOR Indications and Patient Condition Indications for airway management: anesthesia Preoxygenated: yes anesthesia circuit Patient position: sniffing Method: asleep Final Airway Details Final airway type: supraglottic airway Final Supraglottic Airway: i-gel Size 4 Seal Adequate: yes SIGNATURE: Quoc Wagner APRN.DUMBWAITER OPERATOR PATIENT NAME: Flor Hernandez DATE: November 18, 2023 TIME: 11:08 AM CSN: [id number] [facility] 11-17-2023 Note HNO ID: [id number] Author: LILLIAN SPRING MA Service: ? Author Type: Forest Fire Prevention Specialist Type: Progress Notes Filed: 11/17/2023 06:59 Note Text: Received optimization from [facility] and scanned into [employer]. Lillian Spring MA [facility] 11-14-2023 Note HNO ID: [id number] Author: CHELLY ONEAL MD Service: ? Author Type: Physician Type: Progress Notes Filed: 11/18/2023 06:17 Note Text: DATE OF SERVICE: 11/14/2023 PROBLEM: Flor Hernandez is a consult from Dr. Aidan Little for evaluation of PMB. SUBJECTIVE/HPI: Ms. Hernandez is a 68 year old female G0 With a PMH of CAD, HPV, HTN, pyloric stenosis, aortic stenosis/aortic valve replacement 2017, hypothyroid, left nephrectomy, and osteoporosis. She presented to Dr. Aidan Little 08/01/2023 with c/o 4 episodes of minute spotting since Nov 2022. Pelvic US revealed ?thickened endometrial stripe. She underwent EUA on 10/21/2023. Since spring 2022 has had 5 episodes of minor spotting. Has had one prior LEEP. No pathology available, unable to pass through stenotic os. History of bilateral renal stenosis, had hypertension, left kidney was removed. In the 's had right kidney moved to front of abdomen. History of pyloric stenosis as an infant that was repaired. HISTORIES: PAST GYNECOLOGIC HISTORY: OB History G0 Hormonal contraceptives: Yes, OCP How long: approx. 4 years. HRT use: No. History of abnormal pap: Yes, (2017) ASCUS/HPV pos, (2018) ASC-H, (2019) ASCUS/HPV neg, (02/2020) LGSIL, (07/01/20) ASCUS HPV neg, (01/07/21) LGSIL Last pap: 07/15/2021-negative Last HPV: 2019 negative Last mammogram: October 2023 Last colonoscopy: 2020 PAST SURGICAL HISTORY Procedure Laterality Date PAST SURGICAL HISTORY OF 1974 left nephrectomy PAST SURGICAL HISTORY OF 1985 repair of right kidney PAST SURGICAL HISTORY OF 1999 salivary gland removed d/t sarcoidosis(?) PAST SURGICAL HISTORY OF 1998 breast augmentation PAST SURGICAL HISTORY OF surgery for pyloric stnosis as PAST MEDICAL HISTORY Diagnosis Date Aortic stenosis Hypothyroid Kidney disease acute kidney injury, Left nephrectomy Osteoporosis Renal artery stenosis (HCC) FAMILY HISTORY Problem Relation Age of Onset Hypertension Mother Diabetes Mother No Known Problems Father Hypertension Brother Stroke Maternal Grandmother SOCIAL HISTORY Social History Tobacco Use Smoking status: Never Smokeless tobacco: Never Substance Use Topics Alcohol use: Yes Comment: very occasional Drug use: No Occupation: retired Marital Status: REVIEW OF SYSTEMS: GENERAL: No recent weight loss, fever, chills, malaise or fatigue. HEENT: No changes in hearing or vision, frequent or severe headaches, nose bleeds or other nasal problems. NECK: No lumps, goiter, pain, significant neck swelling, or difficulty swallowing. RESPIRATORY: No shortness of breath, cough, wheezing, recent pneumonia (within last 6 weeks) or recent URI (within 2 weeks). CARDIOVASCULAR: No angina with activity or at rest, lower extremity edema, or palpitations. No recent CT (within 6 months), cardiac stent, cardiac surgery, gangrene, or PVD. Aortic valve replacement 2018-needs it checked. BREAST: No breast lumps, skin changes, nipple discharge, or adenopathy. + breast implants, going to have them redone after valve surgery GI: See HPI. No prior history of esophageal varicies or ascites. Patient denies drinking >2 alcoholic beverages a day. : See HPI. No history of renal failure, dialysis, or recent UTI (<6 weeks). MUSCULOSKELETAL: No muscle weakness or joint pain. SKIN: No skin lesions, rashes, or itching. PSYCH: No sleep disturbances, depression, bipolar disorder, drug dependency/history of drug dependency, or recent psychosocial stressors. HEMATOLOGY/LYMPHOLOGY: No prolonged bleeding, bruising easily, swollen nodes, or anemia. No prior history of a blood clot or clotting disorder. No prior history of a bleeding disorder. Not on chronic anticoagulant/platelet medications. ENDOCRINE: No cold or heat intolerance, polyuria, polydipsia, polyphagia, goiter, hot flashes or night sweats. No prior diagnosis of diabetes + thyroid disorder No chronic steroid use. NEURO: No history of paralysis, stroke/TIA, seizures, tremors, syncope, or paresthesias. OBJECTIVE: VITALS: BP 154/79 Pulse 65 Temp 98 Wt 134 lb 12.8 oz (61.1kg) SpO2 99% GENERAL: Patient is a well developed, well nourished female. She is alert, oriented, pleasant, and cooperative. SKIN: Color, texture, turgor normal. No rashes or lesions. HEENT: Normocephalic, atraumatic, mucus membranes moist, and no lesions NECK: Supple, no adenopathy; thyroid symmetric, normal size, no bruits LUNGS: Clear to auscultation bilaterally. HEART: Regular rate and rhythm BACK: No CVA tenderness or gross deformities. ABDOMEN: large midline incision well healed. Non tender non distended. PELVIC: External genitalia, anus and urethral meatus are normal in appearance and without lesions. Vagina diffusely atrophic in appearance on speculum examination. Cervix is quite small and flush with vaginal apex. Visible cervical stenosis present. Bimanual pelvic negative for pelvic masses. S (more content not included)... [facility] 11-01-2023 Evaluation note Encounter Date Diagnosis Assessment Notes Oct, Acute bronchitis due to other specified organisms (ICD-10 - J20.8) Instructed to use Robitussin or Mucinex for cough, saline or Flonase NS for congestion, Tylenol for pain and fever. Oct, S/P aortic valve replacement (ICD-10 - Z95.2) Increases her risk for more prolonged, serious illness. [employer] Other 11-14-2023 History of Present illness Narrative* Niranjan Russo MD - 09/20/2023 10:00 AM EST Subjective Flor Hernandez is a 68 y.o. female Chief Complaint Annual Exam HPI Patient returns in follow-up of problems as noted. In the interim she saw the structural heart team. Their recommendation was observation. This was discussed and explored in tremendous detail. She and her were very pleased with the consultation and the recommendations. Because she does havehemodynamically severe aortic stenosis, with no symptoms, I believe that enhanced surveillance should be performed to monitor for changes in the left ventricular ejection fraction which could occur and/or arise with her aortic stenosis. Because of this we will perform an echocardiogram in 6 months. We discussed symptoms to watch for. I explained to her that dyspnea with exertion would come first,then anginal symptoms, and if nothing gets done syncope could arise or occur. Advised her that theyare associated with advancing disease and severity of clinical condition. She understands the concept. We also discussed the recent elevation in cholesterol. This was measured by PCP. Therapy was not provided but I took the liberty of giving a small dose of atorvastatin and she is in agreement with that. She and her are going to [place] for 6 months. They were encouraged to call if problems symptoms or questions arise in the interim. Review of Systems All other systems reviewed and are negative. Visit Vitals BP 132/84 (BP Location: Right arm, Patient Position: Sitting) Pulse 76 Ht 1.6 m (5' 3 ) Wt 60.8 kg (134 lb) BMI 23.74 kg/m Smoking Status Never BSA 1.64 m Objective Physical Exam Constitutional: Appearance: Normal appearance. She is normal weight. HENT: Nose: Nose normal. Neck: Vascular: No carotid bruit. Cardiovascular: Rate and Rhythm: Normal rate. Pulses: Normal pulses. Heart sounds: Normal heart sounds. Pulmonary: Effort: Pulmonary effort is normal. Abdominal: General: Bowel sounds are normal. Palpations: Abdomen is soft. Genitourinary: Rectum: Normal. Musculoskeletal: General: Normal range of motion. Cervical back: Normal range of motion. Right lower leg: No edema. Left lower leg: No edema. Skin: General: Skin is warm and dry. Neurological: General: No focal deficit present. Mental Status: She is alert. Psychiatric: Mood and Affect: Mood normal. Behavior: Behavior normal. Thought Content: Thought content normal. Judgment: Judgment normal. Current Medications Current Outpatient Medications: coenzyme Q-10 100 mg capsule, Take 1 capsule (100 mg) by mouth once daily., Disp: , Rfl: folic acid (Folvite) 1 mg tablet, Take 1 tablet (1 mg) by mouth 2 times a day., Disp: , Rfl: ibandronate (Boniva) 150 mg tablet, Take 1 tablet (150 mg) by mouth every 30 (thirty) days., Disp: , Rfl: vqahpl-[id number], bulk, powder, Take 200 mg by mouth once daily., Disp: , Rfl: levothyroxine (Tirosint) 88 mcg capsule, Take 1 capsule (88 mcg) by mouth once daily in the morning. Take before meals., Disp: , Rfl: multivitamin with minerals iron-free (Multivitamin 50 Plus), Take 1 tablet by mouth once daily., Disp: , Rfl: Assessment/Plan 1. History of aortic valve replacement with bioprosthetic valve Follow Up In Cardiology 2. Paroxysmal atrial fibrillation (CMS/HCC) Follow Up In Cardiology 3. Nonrheumatic aortic valve stenosis Follow Up In Cardiology 4. Coronary artery disease (CAD) excluded Follow Up In Cardiology [facility] Work [facility]: 1(308) 761-278711-14-2023 Instructions* Patient Instructions* Tesfaye Rodríguez MA - 09/20/2023 10:00 AM EST Please bring all medicines, vitamins, and herbal supplements with you when you come to the office. Prescriptions will not be filled unless you are compliant with your follow up appointments or have a follow up appointment scheduled as per instruction of your physician. Refills should be requested at the time of your visit. [facility] Work Phone: 1(127) 855-864811-01-2023 History of Present illness Narrative* Magi Waters RN - 09/07/2023 9:00 AM EDT Referral from Dr. Russo. Flor Scott comes to discuss treatment options for prosthetic as s/p Inspiris #[address] [facility] [address] Deshpande now pk gradient 69.5/35 odon31-96%. History of paroxysmal a fib. Magi Waters RN documented in this [facility] Work Phone: 1(325) 268-210111-01-2023 History of Present illness Narrative* Minesh Sampson MD - 09/07/2023 8:30 AM EDT Cardio: Karan HPI: 68-year-old female with past medical history of A-fib, surgical bioprosthetic 21 mm Inspiris AVR in 2018 done at [facility] is referred to us for bioprosthetic aortic valve stenosis. On interview today patient denies any symptoms of shortness of breath or chest pain states she is able to do what ever she wants. She states she has bike twice this summer 10 miles each with no issues. Denies any fall syncope Of note the gradient across bioprosthetic aortic valve is 35 mmHg in recent echo, but the gradient was already 27 mmHg and echocardiogram done in 2019 which was 1 year after the valve replacement. Hence the gradient has only mildly increased since then with no symptoms. ROS: Constitutional: fatigue Eyes: no eyesight problems, no blurred vision, no diplopia, no eye pain, no purulent discharge fromthe eyes, eyes not red, no dryness of the eyes and no itching of the eyes. ENT: no nosebleeds, no hearing loss, no tinnitus, no earache, no sore throat, no hoarseness, no swollen glands in the neck and no nasal discharge. Cardiovascular: no dyspnea on exertion, no chest pain Respiratory: no chronic cough, not coughing up sputum, no wheezing that is consistent with asthma Gastrointestinal: no change in bowel habits, no blood in stools, no diarrhea, no constipation, no nausea, no vomiting, no abdominal pain, no signs and symptoms of ulcer disease, no frandy colored stools and no intolerance to fatty foods. Genitourinary: no hematuria, no urinary frequency, no dysuria, no incontinence, no burning sensation during urination, no urinary hesitancy, no nocturia, no genital lesion, no testicular pain, urinary stream is not smaller and urinary stream does not start and stop. Musculoskeletal: no arthralgias, no myalgias, no joint swelling, no joint stiffness, no muscle weakness, no back pain, no limb pain, no limb swelling and no difficulty walking. Skin: no skin rashes, no change in skin color and pigmentation, no skin lesions and no skin lumps. Neurological: no seizures, no frequent falls, no headaches, no dizziness, no tingling, no fainting and no limb weakness. Psychiatric: no depression, not suicidal, no confusion, no memory lapses or loss, no anxiety, no personality change and no emotional problems. Endocrine: no goiter, no thyroid disorder, no diabetes mellitus, no excessive thirst, no dry skin, no cold intolerance, no heat intolerance, no erectile dysfunction, no increased urinary frequency, no proptosis and no deepening of the voice. Hematologic/Lymphatic: no bleeding issues. All other systems have been reviewed and are negative for complaint. TAVR Workup: - NYHA: I - Frailty: 0/5 - EKG: n/a - TTE: July 2023 EF 60 to 65%, bioprosthetic aortic valve mean gradient 35 mmHg, aortic valve area 0.62 cm , peak velocity 4.16 m/s Echo 2018-EF 50 to 55%, aortic valve mean gradient 27 mmHg, V-max 3.39 m/s - CT TAVR: Not needed - [facility]: 08/22/2023-nonobstructive - dental clearance: Goes regular no issues Physical Exam: Constitutional: alert and in no acute distress. Eyes: no erythema, swelling or discharge from the eye . ENT: no erythema, edema, exudate or lesions . Neck: neck is supple, no JVD Pulmonary: no increased work of breathing or signs of respiratory distress , lungs clear to auscultation. , normal percussion of chest and chest palpation normal . Cardiovascular: RRR, 3/6 HUE RUSB, no pitting edema Abdomen: abdomen non-tender, no masses and no hepatomegaly . Neurologic: non-focal neurologic examination. 08/11/2021 8:58 AM 02/17/2022 3:54 PM 10/21/2022 3:19 PM 08/09/2023 3:15 PM 08/29/2023 11:00 AM 09/07/2023 8:45 AM Vitals Systolic 122 148 138 132 134 146 Diastolic 68 82 78 70 82 84 Heart Rate 72 68 64 68 66 68 Height (in) 1.6 m (5' 3 ) 1.6 m (5' 3 ) 1.6 m (5' 3 ) 1.6 m (5' 3 ) 1.6 m (5' 3 ) 1.6 m (5' 3 ) Weight (lb) 136 135 136.4 136 137 135.6 BMI 24.09 kg/m2 23.91 kg/m2 24.16 kg/m2 24.09 kg/m2 24.27 kg/m2 24.02 kg/m2 BSA (m2) 1.66 m2 1.65 m2 1.66 m2 1.66 m2 1.66 m2 1.65 m2 Visit Report Report Report Report Current Outpatient Medications Medication Instructions coenzyme Q-10 100 mg capsule 1 capsule, oral, Daily folic acid (Folvite) 1 mg tablet 1 tablet, oral, 2 times daily ibandronate (BONIVA) 150 mg, oral, Every 30 days [id number], bulk, powder 200 mg, oral, Daily levothyroxine (TIROSINT) 88 mcg, oral, Daily before breakfast multivitamin with minerals iron-free (Multivitamin 50 Plus) 1 tablet, oral, Daily Impression: This is a 68-year-old female with history of bioprosthetic AVR with Inspiris 21 mm in 2018 at [facility] was referred to us for bioprosthetic aortic valve stenosis. on interview today patient denies any symptoms of shortness of breath or chest pain states she is able to do what ever she wants. She states she has bike twice this summer 10 miles each with no issues. Denies any fall syncope Of note the gradient across bioprosthetic aortic valve is 35 mmHg in recent echo, but the gradient was already 27 mmHg and echocardiogram done in 2019 which was 1 year after the valve replacement. Hence the gradient has only mildly increased since then with no symptoms. Hence at this time no intervention on aortic valve is indicated. Patient will continue to follow-upwith her regular patch driller to follow-up on bioprosthetic stenosis change in symptoms. Thank you Dr. Russo for this referral documented in this [facility] Work Phone: [phone]) 951-144410-23-2023 History of Present illness Narrative* Niranjan Russo MD - 08/29/2023 10:20 AM EDT Subjective Flor Hernandez is a 68 y.o. female Chief Complaint Follow-up HPI Patient returns in follow-up of recent coronary angiogram. This had been arranged by our nurse practitioner because the patient appeared to have developed significant prosthetic aortic valve stenosis. Fortuitously her coronary angiogram demonstrated no disease and because of this percutaneous intervention, nor bypass, is necessary. The severity of her valve disease, though, is troublesome. Because of this and the ultimate and/or imminent need for some sort of intervention we have suggested surgical consultation. Although she had her original surgical intervention at the [facility] under the care of Dr. Fanny Deshpande, she is interested in surgical consultation at [facility]. I advised her that it is possible that as surgical procedure may be recommended, or, possibly a valve in valve TAVR. She is obviously interested in the latter because her cousin who also had almost an identical problem (stenosis of a bioprosthetic aortic valve) underwent a valve in valve TAVR and so far has had a good favorable hemodynamic result. At the present time her medical therapy appears to be adequate and appropriate and no adjustments appear necessary. I suggested to her with that we would rate make arrangements for surgical consultation and defer to the surgeon and his recommendations. Review of Systems All other systems reviewed and are negative. Visit Vitals BP 134/82 (BP Location: Right arm, Patient Position: Sitting) Pulse 66 Ht 1.6 m (5' 3 ) Wt 62.1 kg (137 lb) BMI 24.27 kg/m Smoking Status Never BSA 1.66 m Objective Physical Exam Constitutional: Appearance: Normal appearance. She is normal weight. HENT: Nose: Nose normal. Neck: Vascular: No carotid bruit. Cardiovascular: Rate and Rhythm: Normal rate. Pulses: Normal pulses. Heart sounds: Normal heart sounds. Pulmonary: Effort: Pulmonary effort is normal. Abdominal: General: Bowel sounds are normal. Palpations: Abdomen is soft. Genitourinary: Rectum: Normal. Musculoskeletal: General: Normal range of motion. Cervical back: Normal range of motion. Right lower leg: No edema. Left lower leg: No edema. Skin: General: Skin is warm and dry. Neurological: General: No focal deficit present. Mental Status: She is alert. Psychiatric: Mood and Affect: Mood normal. Behavior: Behavior normal. Thought Content: Thought content normal. Judgment: Judgment normal. Current Medications Current Outpatient Medications: coenzyme Q-10 100 mg capsule, Take 1 capsule (100 mg) by mouth once daily., Disp: , Rfl: folic acid (Folvite) 1 mg tablet, Take 1 tablet (1 mg) by mouth 2 times a day., Disp: , Rfl: ibandronate (Boniva) 150 mg tablet, Take 1 tablet (150 mg) by mouth every 30 (thirty) days., Disp: , Rfl: vmpfrb-[id number], bulk, powder, Take 200 mg by mouth once daily., Disp: , Rfl: levothyroxine (Tirosint) 88 mcg capsule, Take 1 capsule (88 mcg) by mouth once daily in the morning. Take before meals., Disp: , Rfl: Assessment/Plan No diagnosis found. 1. History of aortic valve replacement with bioprosthetic valve Patient's bioprosthetic aortic valve, 21 mm, was implanted about 5 years ago but already demonstrates significant dysfunction and stenosis. Because of this referral to surgery in the structural heartteam appears indicated - Follow Up In Cardiology; Future - Referral to Valve and Structural Heart Program; Future 2. Paroxysmal atrial fibrillation (CMS/HCC) No further paroxysms of atrial fibrillation. 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 - Follow Up In Cardiology; Future 3. Nonrheumatic aortic valve stenosis Aortic valve disease as noted above does require consultation and input from the structural heart team. - Follow Up In Cardiology; Future - Referral to Valve and Structural Heart Program; Future 4. Coronary artery disease (CAD) excluded Coronary disease excluded at angiogram. - Follow Up In Cardiology; Future documented in this [facility] Work Phone: 1(435) 610-687210-23-2023 Instructions* Patient Instructions* Elicia Crum LPN - 08/29/2023 10:20 AM EDT Please bring all medicines, vitamins, and herbal supplements with you when you come to the office. Prescriptions will not be filled unless you are compliant with your follow up appointments or have a follow up appointment scheduled as per instruction of your physician. Refills should be requested at the time of your visit. documented in this 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 1. You were given conscious sedation. Do not operate a vehicle, power tools, make important decisions, or drink alcohol for 24 hours. You might be drowsy or light headed. Return to the Emergency Room if you have trouble breathing, walking or nausea and vomiting. 2. FOR BLEEDING: Apply continuous pressure to the site and call 911. 3. Operative Site Care: Keep the dressing clean and dry. You may change the dressing only if soiled or wet. You may remove the dressing the following morning. You may wash over the puncture site in the shower. If the puncture site is at the wrist no soaking for 3 days. Some bruising or slight swelling may be present. -Signs of infection are redness, warmth, swelling, getting more sore, colored drainage, fever or chills. -Should the arm or leg become cold, numb, blue or white, call the patch driller immediately. 4. ACTIVITY: You are advised to go directly home from the hospital. Restrict your activities for the rest of the day. Resume light or normal activities tomorrow. Do not engage in any activity that will stress the puncture site. Avoid heavy lifting (over 15 lbs.), straining or bending at the catheter site for 48 hours after discharge. If the puncture site is at the wrist do not manipulate wrist for 24 hours and no lifting more than 3 lbs for 3 days. 5. DIET:You may eat your regular diet when you desire. 6. MEDICATIONS: Resume your daily prescription schedule. Prescriptions may be sent with you if needed. Use as directed. When taking pain medications, you may experience dizziness or drowsiness. Do not drink alcohol or drive when taking pain medications. 7. If you should experience episodes of angina e.g. chest discomfort, heaviness, tightness, pressure, burning, with or without radiation to the neck, jaws, arms, or back- Use 1 Nitrostat under your tongue every 5-10 minutes, and up to 3 tablets. If no relief- Call 911 and go to the nearest Emergency Room. -Notify the office for recurrent angina, chest pain or other concerns. You may NOT drive yourself home! Follow the medication instructions provided on your discharge. If the dosages and instructions on this sheet differ from the dosage and instructions on the bottle, follow the instructions on the bottle. [facility] is not responsible for incorrect prescription information provided by the patient during their visit. Do not stop your medications without consulting your health care provider. Please take the list with you to your next doctor's appointment.[facility] Work Phone: 1([phone]) 856-915010-10-2023 Evaluation note* Encounter Date Diagnosis Assessment Notes Treatment Notes Treatment Clinical Notes Aug, Autoimmune thyroiditis (ICD-10 - E06.3) [employer] Other 10-03-2023 Evaluation + Plan note* Assessment & Plan Note - PAULIE Berkowitz - 08/09/2023 3:50 PM EDTAssociated Problem(s): Coronary artery disease (CAD) excluded March 2018 cardiac cath angiographically normal coronaries [facility] Work Phone: [phone]) 794-398310-03-2023 Miscellaneous Notes* Assessment & Plan Note - PAULIE Berkowitz - 08/09/2023 3:50 PM EDTAssociated Problem(s): Coronary artery disease (CAD) excluded March 2018 cardiac cath angiographically normal coronaries * Assessment & Plan Note - PAULIE Berkowitz - 08/09/2023 3:48 PM EDT Associated Problem(s): Abnormal echocardiogram July 2023 TTE LVH mild Severe bioprosthetic aortic stenosis * Assessment & Plan Note - PAULIE Berkowitz - 08/09/2023 3:48 PM EDT Associated Problem(s): Paroxysmal atrial fibrillation (CMS/HCC) Noted post-op 2018 AVR No recurrent * Assessment & Plan Note - PAULIE Berkowitz - 08/09/2023 3:47 PM EDT Associated Problem(s): Aortic stenosis Jul 2023 surveillance TTE Bioprosthetic aortic stenosis severe 0.62 Peak 69, mean August echo peak 46, mean 27 * Assessment & Plan Note - PAULIE Berkowitz - 08/09/2023 3:47 PM EDT Associated Problem(s): History of aortic valve replacement with bioprosthetic valve 2018 #21 Inspiris AVR at [facility] Work Phone: [phone] Evaluation + Plan note* Assessment & Plan Note - PAULIE Berkowitz - 08/09/2023 3:48 PM EDTAssociated Problem(s): Abnormal echocardiogram July 2023 TTE LVH mild Severe bioprosthetic aortic stenosis [facility] Work Phone: [phone] 348-692310-03-2023 Evaluation + Plan note* Assessment & Plan Note - PAULIE Berkowitz - 08/09/2023 3:48 PM EDTAssociated Problem(s): Paroxysmal atrial fibrillation (CMS/HCC) Noted post-op 2018 AVR No recurrent [facility] Work Phone: [phone] 516-944810-03-2023 Evaluation + Plan note* Assessment & Plan Note - PAULIE Berkowitz - 08/09/2023 3:47 PM EDTAssociated Problem(s): Aortic stenosis Jul 2023 surveillance TTE Bioprosthetic aortic stenosis severe 0.62 Peak 69, mean August echo peak 46, mean 27 [facility] Work Phone: [phone] 172-323110-03-2023 Evaluation + Plan note* Assessment & Plan Note - PAULIE Berkowitz - 08/09/2023 3:47 PM EDTAssociated Problem(s): History of aortic valve replacement with bioprosthetic valve 2018 #21 Inspiris AVR at [facility] Work Phone: [phone] 413-879710-03-2023 History of Present illness Narrative* PAULIE Berkowitz - 08/09/2023 3:00 PM EDT Patient presents to the office today for outpatient follow-up for cardiac risk stratification priorto breast implant removal Last evaluated in clinic by Dr. Russo Oct 2022 Presents today ambulatory with steady gait. Accompanied by patient Patient denies any hospitalizations or significant changes to interval medical history since last office follow-up. Patient presents to the office today overall reporting doing good . Her recent surveillance echocardiogram showed progression of bioprosthetic aortic stenosis to severe range. From a symptom standpoint she rides her bike 10 miles approximately 3 times a week, is active doing yard work and housework without complaints of dyspnea on exertion. She denies any dizziness or lightheadedness, no syncopal episode. She denies any exertional chest pain. She goes on to report that prior to her AVR she thought I was fine but in retrospect realized she had been having more dyspnea on exertion but continues to deny any type of recurrence. Due to progression of bioprosthetic aortic stenosis, will not be able to proceed with surgical procedure (cosmetic and not loss of limb/life or for CA diagnosis) at this time. We will proceed with cardiac catheterization to reevaluate aortic stenosis and CAD (2018 normal coronaries) and referral is warranted. She was provided Dr. Newsome name and she will decide if agrees to referral to valvular heart team versus going back to [facility]. The risks, benefits and procedure of cardiac catheterization plus or minus coronary intervention were discussed including but not limited to 1:1000 myocardial infarction, stroke, urgent coronary artery bypass graft and rare recorded : 1:100 vascular complications and contrast-induced acute renal failure. The patient is in agreement to proceed. Patient presents with no IVP allergies. Concomitant medications have been reviewed. Last renal function has been reviewed. Review of Systems Cardiovascular: Negative for chest pain, dyspnea on exertion, irregular heartbeat, leg swelling, near-syncope, orthopnea, palpitations, paroxysmal nocturnal dyspnea and syncope. Physical Exam HENT: Head: Normocephalic. Cardiovascular: Rate and Rhythm: Normal rate and regular rhythm. Heart sounds: Murmur heard. Decrescendo systolic murmur is present with a grade of 3/6. Pulmonary: Effort: Pulmonary effort is normal. Breath sounds: Normal breath sounds. Abdominal: General: Abdomen is flat. Musculoskeletal: Cervical back: Full passive range of motion without pain. Right lower leg: No edema. Left lower leg: No edema. Skin: General: Skin is warm and dry. Neurological: Mental Status: She is alert and oriented to person, place, and time. Psychiatric: Attention and Perception: Attention normal. Behavior: Behavior is cooperative. Assessment: History of aortic valve replacement with bioprosthetic valve 2018 #21 Inspiris AVR at [facility] Aortic stenosis Jul 2023 surveillance TTE Bioprosthetic aortic stenosis severe 0.62 Peak 69, mean August echo peak 46, mean 27 Paroxysmal atrial fibrillation (CMS/HCC) Noted post-op 2018 AVR No recurrent Abnormal echocardiogram July 2023 TTE LVH mild Severe bioprosthetic aortic stenosis Coronary artery disease (CAD) excluded March 2018 cardiac cath angiographically normal coronaries PLAN: Through informed decision making process incorporating patients unique circumstances, the followingtreatment plan will be initiated: Cardiac cath with Dr. Russo to evaluate Aortic Stenosis and determine next steps in evaluation Return for follow-up; in the interim, contact the office if new symptoms arise. Dr. Russo as scheduled 3. Prohibitive risk for cuj-sciw-[id number] surgical procedures at that time until aortic stenosisevaluated. Mayte Lobo MSN, MOTOR CARRIER INSPECTOR-IDENTIFIER HORSE, PMHNP-BC [facility] Please excuse any errors in grammar or translation related to this dictation. Voice recognition software was utilized to prepare this document. documented in this encounterUnOhio [facility] Work Phone: [phone]) 594-565510-03-2023 Instructions* Patient Instructions* PAULIE Berkowitz - 08/09/2023 3:00 PM EDT Please bring all medicines, vitamins, and herbal supplements with you when you come to the office. Prescriptions will not be filled unless you are compliant with your follow up appointments or have a follow up appointment scheduled as per instruction of your physician. Refills should be requested at the time of your visit. PLAN: Through informed decision making process incorporating patients unique circumstances, the followingtreatment plan will be initiated: Cardiac cath with Dr. Russo (aortic stenosis bioprosthetic valve peak 69;mean 35) 2. Return for follow-up; in the interim, contact the office if new symptoms arise. Dr. Russo as scheduled 3. No surgical procedure at this time - pending evaluation with cardiac cath [facility] encounterUniversity [facility] Work Phone: [phone]) 794-317409-22-2023 Evaluation note* Encounter Date Diagnosis Assessment Notes Treatment Notes Treatment Clinical Notes Jul, Medicare annual well ness visit, subsequent (ICD-10 - Z00.00) Personalized health advice was given to the beneficiary including a written plan for screenings discussed and provided. Advanced care planning reviewed and/or information given as requested. Additional counseling was provided here today in regards to, [ ]. The above visit was performed by [ ], under direct supervision of [ ]. Document reviewed and amended by provider signed below. Jul, Pure hypercholestero lemia (ICD-10 - E78.00) Instructed on diet and exercise with continued statin therapy.Discussed the beneficial effects of lowering cholesterol in reducing the risk for cerebrovascular and cardiovascular disease. Jul, Age-related osteopor osis without current pathological fracture (ICD-10 - M81.0) Boniva q 3mo Ca and Vit D supplement Weight bearing exercises DEXA qoy Jul, Other specified hypothyroidism (ICD-10 - E03.8) Jul, Autoimmune thyroidit is (ICD-10 - E06.3) Clinically euthyroid, yearly TSH Jul, S/P aortic valve replacement (ICD-10 - Z95.2) Asymptomatic w/o CP, tachycardia or lightheadedness. Recent Echo w/ increased Velocity and gradients. defer to Cardiology Jul, Pharyngoesophageal dysphagia (ICD-10 - R13.14) Not specific for types of food Never occurs w/ liquids Nonsmoker Schedule for MBS Jul, Screening mammogram for breast cancer (ICD-10 - Z12.31) Instructed patient on monthly SBE and yearly mammograms. Planning removal of implants Jul, High risk medication use (ICD-10 - Z79.899) Check labs: CBC, BMP [employer] Other 10-05-2019 History of Present illness NarrativePatient returns in follow-up of problems as noted. She is doing well. She is very active performinga wide variety of activities around the house and also with landscaping and gardening. With activity she has no angina CHF arrhythmia or neurologic symptomatology. 2 years ago we assessed her aortic valve replacement with an echocardiogram. In the absence of symptoms or clinical change in her aerobic capacity I am reluctant to perform testing now and I propose that we forego an echocardiogram this year and we will do 1 next year. Her body mass index is noted to be satisfactory and she was educated regarding diet lifestyle modification exercise and its merits. She understands and she agrees. Because of all the above we suggest follow-up in a year.[facility] Work Phone: [phone] History of Present illness NarrativePatient returns in follow-up of problems as noted. She is doing well. She is very active performinga wide variety of activities around the house and also with landscaping and gardening. With activity she has no angina CHF arrhythmia or neurologic symptomatology. 2 years ago we assessed her aortic valve replacement with an echocardiogram. In the absence of symptoms or clinical change in her aerobic capacity I am reluctant to perform testing now and I propose that we forego an echocardiogram this year and we will do 1 next year. Her body mass index is noted to be satisfactory and she was educated regarding diet lifestyle modification exercise and its merits. She understands and she agrees. Because of all the above we suggest follow-up in a year.[facility] CenterGlenis Thakkar DO Work Phone: [phone]) [phone] History of Past illness Narrative* Problem Noted Date Diagnosed Date Resolved Date Fluid overload 05/07/2018 05/09/2018 Overview: A/P: -1.4L x24 hours. Continue diuresis. 05/08/2018 Continue diuresis as tolerated. Atelectasis 05/07/2018 05/09/2018 Overview: A/P: on 2L NC. OOB, wean o2, and pep 05/08/2018 Encourage PEP with deep breathing and cough. Acute blood loss anemia 05/07/201801/2018 Overview: A/P: Hct stable. No indication for transfusion Aortic stenosis 05/05/2018 05/09/2018 Overview: 05/05/2018: s/p Mini-AVR through hemisternotomy (21 Inspiris Valve) A/P: ASA On mechanically assisted ventilation 05/05/2018 05/06/2018 Overview: WTE Post-op pain 05/05/2018 05/09/2018 Overview: A/P: lidoderm, tylenol, and percolone 05/08/2018 Continue oral acetaminophen and oxycodone PRN for pain control. Preop testing 05/02/2018 05/09/2018 [facility] Surgeon: Fanny Deshpande M.D. Informed Consent Completed: Yes STS Score: 1.255 CAD: No Is intended procedure a CABG: No - is a beta jhon ordered? No - reason: N/A H & P completed: Yes PA/LAT: N/A CT: Completed (Dr. Deshpande notified and aware of CT results pulm ) MRI: N/A LE US: N/A Cath: Yes (outside - images on Syngo) - reviewed: No Echo:Completed EKG: Completed EF %: 59 PI's: N/A Carotid: N/A Mapping: N/A Dental: Completed -document to be scanned PFT's: N/A Recent Labs 05/01/18 0939 WBC 5.04 HB 13.7 HCT 42.7 PLT 163 INR 1.0 CREAT 1.16* UA: Normal HCG:N/A ABO/ABO Confirmed: Yes Blood ordered: No SA Swab: Yes - results: Component 05/02/2018 S aureus Specimen Source Nasal MRSA PCR Negative for MRSA by PCR. Staph aureus PCR Positive for Staphylococcus aureus by PCR. (A) Last Dose of Anticoagulation: Not on A/C or OTC Op Note: N/A Pacemaker Check: N/A Implants: yes: Dr. Deshpande Aware - no need for plastics (plan for hemisternotomy) Consults: None - (will need post-op pulmonary follow up per Dr. Deshpande) DM: No Cardiac Surgical prep: N/A SIGNATURE: Zuleika Ramírez APRN.CNP CHECKED BY: charlene DATE of SERVICE: 05/02/2018 TIME of SERVICE: 12:55 PM Severe calcific aortic stenosis 05/01/2018 05/09/2018 Pre-operative cardiovascular examination 05/01/2018 05/09/2018 H/O unilateral nephrectomy 05/01/2018 0 05/09/2018 Sarcoidosis 05/01/2018 05/09/2018 Renal artery stenosis 05/01/20182017 documented as of this encounter (statuses as of 12/16/2023) [facility] noteNo assessment information [facility] Work Phone: Evaluation note* Diagnosis Paroxysmal atrial fibrillation (CMS/HCC)- Primary Atrial fibrillation History of aortic valve replacement with bioprosthetic valve Nonrheumatic aortic valve stenosis Abnormal echocardiogram Nonspecific (abnormal) findings on radiological and other examination of other intrathoracic organs Coronary artery disease (CAD) excluded Observation for suspected cardiovascular disease documented in this encounter [facility] Work Phone: Evaluation noteNo InformationNoresearch [facility] [employer] Other Evaluation note* Diagnosis History of aortic valve replacement with bioprosthetic valve Paroxysmal atrial fibrillation (CMS/HCC) Atrial fibrillation Nonrheumatic aortic valve stenosis Coronary artery disease (CAD) excluded Observation for suspected cardiovascular disease documented in this encounter [facility] Work Phone: Evaluation note* Diagnosis History of aortic valve replacement with bioprosthetic valve Nonrheumatic aortic valve stenosis documented in this encounter [facility] Work Phone: Evaluation note* Diagnosis Stenosis of prosthetic aortic valve, initial encounter documented in this encounter [facility] Work Phone: [phone] note* Diagnosis History of aortic valve replacement with bioprosthetic valve Paroxysmal atrial fibrillation (CMS/HCC) Atrial fibrillation Nonrheumatic aortic valve stenosis Coronary artery disease (CAD) excluded Observation for suspected cardiovascular disease documented in this encounter [facility] Work Phone: Evaluation note* Diagnosis PMB (postmenopausal bleeding)- Primary Postmenopausal bleeding Cervical stenosis (uterine cervix) [N88.2] Stricture and stenosis of cervix documented in this encounter [facility] note* Diagnosis History of aortic valve replacement with bioprosthetic valve Nonrheumatic aortic valve stenosis documented in this encounter [facility] Work Phone: Evaluation note* Diagnosis History of aortic valve replacement with bioprosthetic valve Paroxysmal atrial fibrillation (Multi) Atrial fibrillation Nonrheumatic aortic valve stenosis Coronary artery disease (CAD) excluded Observation for suspected cardiovascular disease documented in this encounter [facility] Work Phone: Evaluation note* Diagnosis Thickened endometrium [R93.89]- Primary Nonspecific (abnormal) findings on radiological and other examination of genitourinary organs documented in this encounter [facility]* Diagnosis PMB (postmenopausal bleeding) Postmenopausal bleeding documented in this encounter [facility] note* Diagnosis PMB (postmenopausal bleeding) Postmenopausal bleeding documented in this [facility]* Diagnosis Onset Date Resolution Status Admit Date Dysphagia acute September 18, 2024 1:24pm GERD (gastroesophageal reflu x disease) acute September 18 1:24pm History of left nephrectomy acute September 18, 2024 1:24pm Hypercholesterolemia acute Nove mb2023 1:24pm Hypothyroid acute September 1:24pm Medicare annual wellness vis it, subsequent acute September 18 1:24pm Prosthetic aortic valve stenosis acu te September 18, 2024 1:24pm [facility] Work Phone: Histaja general Narrative - Reported* Type Description Date Medical History Overweight Medical History Acquired autoimmune hypothyroidi sm Medical History Paroxysmal atrial fibrillation Medical History Age-related osteopor osis without current pathological fracture Medical History Thrombocytopenia Medical History Pure hypercholesterolemia Medical History S/P aortic valve replacement Surgical History Kidney removed 1973 Surgical History Kidney surgery-Renal stenosis 1 984 Surgical History Breast Augmentation 1989 Surgical History T & A young child Surgical History Pyloric Stenosis repair Infant Surgical History aortic valve replacement 2017 Hospitalization History see surgical history [employer] Other Hisiypn general Narrative - Reported* Type Description Date Medical History Overweight Medical History Acquired autoimmune hypothyroidi sm Medical History Paroxysmal atrial fibrillation Medical History Age-related osteopor osis without current pathological fracture Medical History Thrombocytopenia Medical History Pure hypercholesterolemia Medical History S/P aortic valve replacement Surgical History Kidney removed 1973 Surgical History Kidney surgery-Renal stenosis 1 984 Surgical History Breast Augmentation 1989 Surgical History T & A young child Surgical History Pyloric Stenosis repair Surgical History aortic valve replacement 2018 Surgical History [facility] 08/2023 Hospitalization History see surgical history [employer] Other History of Present illness NarrativePatient returns in follow-up of problems as noted. She is done well. Its been a while since she hasbeen seen but she states she is done well and she has been physically active and exercising with noangina dyspnea or arrhythmia symptomatology. Chart review reveals its been 3 years since her valve prosthesis has been evaluated because of this we recommend an echocardiogram at her convenience. Sheand her are heading to [place] for several months and I encouraged them to follow-up with me sometime next year. I advised him that if the echocardiogram necessitated a more timely visit we would make arrangements in this regard. Otherwise it appears she is doing well we suggest no change.[address] Work Phone: History of Present illness NarrativePatient returns in follow-up of problems as noted. She is done well. Its been a while since she hasbeen seen but she states she is done well and she has been physically active and exercising with noangina dyspnea or arrhythmia symptomatology. Chart review reveals its been 3 years since her valve prosthesis has been evaluated because of this we recommend an echocardiogram at her convenience. Sheand her are heading to [place] for several months and I encouraged them to follow-up with me sometime next year. I advised him that if the echocardiogram necessitated a more timely visit we would make arrangements in this regard. Otherwise it appears she is doing well we suggest no change.[facility] Work Phone: Reason for referral (narrative)* Consultation (Routine) - Pending Review Specialty Diagnoses / Procedures Referred By Genny guillory Referred To Contact Structural Heart Diagnoses History of aortic valve replacement with bioprosthetic valve Nonrheumatic aortic valve stenosis Niranjan Russo MD [address] [address] [place] [address] Department [place] [address] Referral ID Status Reason Start Date Expiration Date Visits Requested Visits Authorized [id number] Pending Review Specialty Services Required 3 2024 1 1 * Consultation (Routine) - Authorized Specialty Diagnoses / Procedures Referred By Genny guillory Referred To Contact Cardiology Diagnoses History of aortic valve replacement with bioprosthetic valve Paroxysmal atrial fibrillation (CMS/HCC) Nonrheumatic aortic valve stenosis Coronary artery disease (CAD) excluded Procedures Follow Up In Cardiology Niranjan Russo MD [address] [facility] [address], [address] [address] Niranjan Russo MD [address] [facility] [address], [address] [address] Referral ID Status Reason Start Date Expiration Date V isits Requested Visits Authorized [id number] Authorized 08/29/2023 2024 1 1 [facility] Work Phone: reason for referral (narrative)* Consultation (Routine) - Authorized Specialty Diagnoses / Procedures Referred By Contac t Referred To Contact Cardiology Diagnoses History of aortic valve replacement with bioprosthetic valve Procedures Follow Up In Cardiology Niranjan Russo MD [address] [facility] [address], [address] [address] Niranjan Saxena DO [address] [facility] [address], [address] [address] Referral ID Status Reason Start Date Expiration Date V isits Requested Visits Authorized [id number] Authorized 03/28/2024 03/28/2025 1 1 [facility] Work Phone: reason for visit Narrative* Consultation (Routine) - Pending Review Specialty Diagnoses / Procedures Referred By Contac t Referred To Contact Structural Heart Diagnoses History of aortic valve replacement with bioprosthetic valve Nonrheumatic aortic valve stenosis Niranjan Russo MD [address] [place] [address] 2, [address] [address] [place] [address] [address] [place] [address] Referral ID Status Reason Start Date Expiration Date Visits Requested Visits Authorized [id number] Pending Review Specialty Services Required 3 2024 1 1 [facility] Work Phone: Summary Purpose Family History Unknown Family Member Name Dates Details No pertinent family history: Mother, Father, Sibling(V49.89, Z78.9) Status:Active Unknown Family Member Name Dates Details No pertinent family history: Mother, Father, Sibling(V49.89, Z78.9) Status:Active Unknown Family Member Name Dates Details No pertinent family history: Mother, Father, Sibling(V49.89, Z78.9) Status:Active Unknown Family Member Name Dates Details No pertinent family history: Mother, Father, Sibling(V49.89, Z78.9) Status:Active Relationship Condition Age at Onset Recorded Date/T garrett Not Specified Malignant neoplasm of breast Unknown father Medical history unknown Unknown Unknown Family Member Name Dates Details No pertinent family history: Mother, Father, Sibling(V49.89, Z78.9) Status:Active Unknown Family Member Name Dates Details No pertinent family history: Mother, Father, Sibling(V49.89, Z78.9) Status:Active Unknown Family Member Name Dates Details No pertinent family history: Mother, Father, Sibling(V49.89, Z78.9) Status:Active Relationship Condition Age at Onset Recorded Date/T garrett mother Malignant neoplasm of breast Unknown father Medical history unknown Unknown brother Hypertension Unknown father Unknown mother Malignant neoplasm Unknown Unknown Advance Directives Advance Directive Response Recorded Date/ Time Advance Directives No October 10, 2017 3:50pm Advance Directive Response Recorded Date/ Time Advance Directives No October 10, 2017 4:50pm Documents on File Type Date Recorded Patient Night Assistant Expl anation Advance Directive(s) 05/02/2018 2:20 PM Documents on File Type Date Recorded Patient Night Assistant Expl anation Advance Directive(s) 05/02/2018 2:20 PM Chief Complaint FLOR HERNANDEZ is being seen for an annual follow-up of.FLOR HERNANDEZ is being seen for an annual follow-up of.Patient is here for EKG ordered by Dr. Mcdonald for POC. Dr. Rolanda Sparks MD in suite. Patientis here for POC. Medication list reviewed and updated. Patient has no complaints. EKG reviewed by Maria G Marte RN prior to discharge. To Dr. Niranjan Russo MD for review.FLOR HERNANDEZ is being seen for an annual follow-up of.FLOR HERNANDEZ is being seen for an annual follow-up of.FLOR HERNANDEZ is being seen for an annual follow-up of. Chief Complaint and Reason for Visit Chief Complaint Screening Chief Complaint Aortic Stenosis Chief Complaint Aortic Stenosis Aortic Stenosis Chief Complaint Aortic Stenosis Aortic Stenosis I35.0 Chief Complaint Aortic Stenosis Aortic Stenosis I35.0 Screening Chief Complaint Aortic Stenosis Aortic Stenosis I35.0 Screening Postmenopausal Bleeding Chief Complaint Admit Date CC Adult Risk Stratification September 1:52pm Wellness September 18, 2024 1:24pm Reason for Visit Admit Date Dysphagia September 18, 2024 1:24pm GERD (gastroesophageal reflux disease) N ovember 2023 1:24pm History of left nephrectomy September 1:24pm Hypercholesterolemia September 18, 2024 1:24pm Hypothyroid September 18, 2024 1:24pm Medicare annual wellness visit, subseque nt September 18, 2024 1:24pm Prosthetic aortic valve stenosis Novembe r 2023 1:24pm Reason for Referral Specialty Diagnoses / Procedures Referred By Genny guillory Referred To Contact MR IMAGING Diagnoses PMB (postmenopausal bleeding) Procedures MRI FEMALE PELVIS WO/W IVCON MRI PELVIS W/O & W/CONTRAST MATERIAL Fanny Luke APRN.IDENTIFIER HORSE [address] [place] [address] Mr [facility] [place] [address] Referral ID Status Reason Start Date Expiration Date Visits Requested Visits Authorized [id number] Authorized Auto-Generat ed Referral 12/15/2023 01/13/2025 1 1 Specialty Diagnoses / Procedures Referred By Genny guillory Referred To Contact Cardiology Diagnoses History of aortic valve replacement with bioprosthetic valve Nonrheumatic aortic valve stenosis Procedures Transthoracic Echo (TTE) Complete MO ECHO TRANSTHORC R-T 2D W/WO M-MODE REC F-UP/LMTD MO DOP ECHOCARD COLOR FLOW VELOCITY MAPPING MO DOP ECHOCARD PULSE WAVE W/SPECTRAL F-UP/LMTD STD Niranjan Russo MD [address] [facility] 2, [address] [address] Referral ID Status Reason Start Date Expiration Date Visits Requested Visits Authorized [id number] Pending Review Perform Procedure 09/19/2024 1 1 Specialty Diagnoses / Procedures Referred By Genny guillory Referred To Contact Cardiology Diagnoses History of aortic valve replacement with bioprosthetic valve Paroxysmal atrial fibrillation (CMS/HCC) Nonrheumatic aortic valve stenosis Coronary artery disease (CAD) excluded Procedures Follow Up In Cardiology Niranjan Russo MD [address] [place] [address] 2, [facility] [address] [place] [address] Niranjan Russo MD [address] [place] [address] 2, [facility] [address] [place] [address] Referral ID Status Reason Start Date Expiration Date V isits Requested Visits Authorized [id number] Authorized 09/20/2023 09/19/2024 1 1 Additional Source Comments INFORMATION SOURCE (unrecogn ized section and content) DATE CREATED AUTHOR 04/27/2018 [facility] DATE CREATED AUTHOR AUTHOR'S ORGANIZ ATION 08/09/2022 [facility] DATE CREATED AUTHOR AUTHOR'S ORGANIZ ATION 10/28/2022 [facility] DATE CREATED AUTHOR AUTHOR'S ORGANIZ ATION 10/28/2022 [employer] DATE CREATED AUTHOR AUTHOR'S ORGANIZ ATION 07/20/2023 [facility] DATE CREATED AUTHOR AUTHOR'S ORGANIZ ATION 09/08/2023 [facility] DATE CREATED AUTHOR AUTHOR'S ORGANIZ ATION 11/03/2023 [facility] DATE CREATED AUTHOR AUTHOR'S ORGANIZ ATION 11/25/2023 [facility] DATE CREATED AUTHOR AUTHOR'S ORGANIZ ATION 03/28/[address] [facility] DATE CREATED AUTHOR AUTHOR'S ORGANIZ ATION 03/31/2024 [facility] DATE CREATED AUTHOR AUTHOR'S ORGANIZ ATION 05/01/2024 [facility] DATE CREATED AUTHOR AUTHOR'S ORGANIZ ATION 06/29/[address] [place] [address] [employer] Teams (unrecognized sec tion and content) Team Status: Active Member Role Status Dates Kaleb Nassar DO Primary Care Provider Active Team Status: Active Member Role Status Dates Kaleb Nassar DO Primary Care Provide r, Attending Provider Active Start: September 12, 2024 Team Status: Inactive Member Role Status Dates Kaleb Nassar , Primary Care Provide r, Attending Provider Active Start: September 18, 2024 End: September 18, 2024 Team Status: Active Member Role Status Dates Kaleb Nassar DO Primary Care Provider Active Team Status: Inactive Member Role Status Dates Kaleb Nassar , Primary Care Provider Active Niranjan Russo MD Attending Provider Active Team Status: Inactive Member Role Status Dates Kaleb Nassar , Primary Care Provider Active Aidan Little MD Attending Provider Active 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 [facility] [place] [address] PCP - General 08/22/19 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 Relationship Specialty Start Date End Date Kaleb Nassar DO [address] [facility] [place] [address] PCP - General 08/22/19 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 Relationship Specialty Start Date End Date Kaleb Nassar DO [address] 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 Specialty Start Date End Date Kaleb Nassar DO [facility] [address] [place] [address] PCP - General Internal Medicine 02/27/24 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 Relationship Specialty Start Date End Date Kaleb Nassar DO [address] [place] [address] PCP - General Internal Medicine 04/12/18 Niranjan Russo MD [address] [phone] Referring Cardiology 04/12/18 [facility] [address] [address] Primary Staff Physician Cardiology 01/23/19 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 Relationship Specialty Start Date End Date Kaleb Nassar DO PCP - General Internal Medicine 02/27/24 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 Relationship Specialty Start Date End Date Kaleb Nassar DO [address] [place] [place] [place] [address] PCP - General Internal Medicine 04/12/18 Niranjan Russo MD [address] [place] [phone] Referring Cardiology 04/12/18 Lopez Eng [address] [facility] [address] [place] [address] Primary Staff Physician Cardiology 01/23/19 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 Relationship Specialty Start Date End Date Kaleb Nassar DO [address] [place] [address] PCP - General Internal Medicine 04/12/18 Niranjan Russo MD [address] [facility] [address] [place] [address] Referring Cardiology 04/12/18 Lopez Eng [address] [facility] [address] [place] [address] Primary Staff Physician Cardiology 01/23/19 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 Relationship Specialty Start Date End Date Kaleb Nassar DO [address] [facility], [place] [id number] PCP - General Internal Medicine 04/12/18 Niranjan Russo MD [address] [facility] [address] [place] [address] Referring Cardiology 04/12/18 Lopez [address] [place] [address] Primary Staff Physician Cardiology 01/23/19 Team Status: Active Member Role Status Dates Kaleb Nassar DO Primary Care Provide r, Attending Provider Active Start: September 12, 2024 Team Status: Inactive Member Role Status Dates Kaleb Nassar , Primary Care Provide r, Attending Provider Active Start: September 18, 2024 End: September 18, 2024 Goals (unrecognized section and content) Goals may be documented in a n alternate sectionNo InformationNo InformationGoals may be documented in an alternate sectionGoals may be documented in an alternate sectionNo InformationGoals may be documented in an alternate sectionGoals may be documented in an alternate sectionNo InformationGoals may be documented in an alternate section REASON FOR VISIT (unrecogniz ed section and content) Reason Comments Procedure POC for Plastic Surg adam with Maurice Reason Comments Follow-up 1w after cath. Specialty Diagnoses / Procedures Referred By Contac t Referred To Contact Cardiology Diagnoses Coronary artery disease (CAD) excluded Procedures Follow Up In Cardiology Niranjan Russo MD [address] [place] [address] Referral ID Status Reason Start Date Expiration Date V isits Requested Visits Authorized [id number] Authorized 08/23/2023 08/22/2024 1 1 Reason Comments Annual Exam Specialty Diagnoses / Procedures Referred By Contac t Referred To Contact Cardiology Diagnoses History of aortic valve replacement with bioprosthetic valve Paroxysmal atrial fibrillation (CMS/HCC) Nonrheumatic aortic valve stenosis Coronary artery disease (CAD) excluded Procedures Follow Up In Cardiology Niranjan Russo MD [address] [place] [address], [address] [address] Niranjan Russo MD [address] [place] [address], [address] [address] Referral ID Status Reason Start Date Expiration Date V isits Requested Visits Authorized [id number] Authorized 08/29/2023 2024 1 1 Reason Comments Established Patient Specialty Diagnoses / Procedures [facility] Referred To Contact Cardiology Diagnoses History of aortic valve replacement with bioprosthetic valve Nonrheumatic aortic valve stenosis Procedures Transthoracic Echo (TTE) Complete MO ECHO TRANSTHORC R-T 2D W/WO M-MODE REC F-UP/LMTD MO DOP ECHOCARD COLOR FLOW VELOCITY MAPPING MO DOP ECHOCARD PULSE WAVE W/SPECTRAL F-UP/LMTD STD Niranjan Russo MD [address] [place] [address], [address] [address] Referral ID Status Reason Start Date Expiration Date Visits Requested Visits Authorized [id number] Pending Review Perform Procedure 09/19/2024 1 1 Reason Comments Appointment Appointment reminder call- spoke with patient- gave directions to the office Reason Comments Follow-up Echo results Specialty Diagnoses / Procedures [facility] Referred To Contact Cardiology Diagnoses History of aortic valve replacement with bioprosthetic valve Paroxysmal atrial fibrillation (Multi) Nonrheumatic aortic valve stenosis Coronary artery disease (CAD) excluded Procedures Follow Up In Cardiology Niranjan Russo MD [address] [place] [address], [address] [address] Niranjan Russo MD [address] [place] [address], [address] [address] Referral ID Status Reason Start Date Expiration Date V isits Requested Visits Authorized [id number] Authorized 09/20/2023 09/19/2024 1 1 Reason Comments Follow Up Specialty Diagnoses / Procedures [facility] Referred To Contact MR IMAGING Diagnoses PMB (postmenopausal bleeding) Procedures MRI FEMALE PELVIS WO/W IVCON MRI PELVIS W/O & W/CONTRAST MATERIAL Fanny Luke APRN.IDENTIFIER HORSE [address] [place] [id number] [place] [address] Referral ID Status Reason Start Date Expiration Date V isits Requested Visits Authorized [id number] Closed Auto-Generate d Referral 12/15/2023 01/13/2025 1 1 Specialty Diagnoses / Procedures Referred By Contac t Referred To Contact MR IMAGING Diagnoses PMB (postmenopausal bleeding) Procedures MRI FEMALE PELVIS WO/W IVCON MRI PELVIS W/O & W/CONTRAST MATERIAL Chelly Oneal MD [address] [place] [address] [place] [address] Referral ID Status Reason Start Date Expiration Date V isits Requested Visits Authorized [id number] Closed Auto-Generate d Referral 11/22/2023 11/06/2024 1 1 Source Comments (unrecognize d section and content) In the event this informatio n is protected by the Federal Confidentiality of Alcohol and Drug Abuse Patient Records regulations: The Federal rules restrict any use of the information to criminally investigate or prosecute any alcohol or drug abuse patient.[facility] the event this information is protected by the Federal Confidentiality of Alcohol and Drug Abuse Patient Records regulations: The Federal rules restrict any use of the information to criminally investigate or prosecute any alcohol or drug abuse patient.[facility] the event this information is protected by the Federal Confidentiality of Alcohol and Drug Abuse Patient Records regulations: The Federal rules restrict any use of the information to criminally investigate or prosecute any alcohol or drug abuse patient.[facility] the event this information is protected by the Federal Confidentiality of Alcohol and Drug Abuse Patient Records regulations: The Federal rules restrict any use of the information to criminally investigate or prosecute any alcohol or drug abuse patient.[facility] the event this information is protected by the Federal Confidentiality of Alcohol and Drug Abuse Patient Records regulations: The Federal rules restrict any use of the information to criminally investigate or prosecute any alcohol or drug abuse patient.[facility] FOR RECORDS PERTAINING TO PATIENTS WHO ARE OR HAVE BEEN ENROLLED IN A CHEMICAL DEPENDENCY/SUBSTANCEABUSE PROGRAM, SOME INFORMATION MAY BE OMITTED. This clinical summary was aggregated from multiple sources. Caution should be exercised in using it in the provision of clinical care. This summary normalizes information from multiple sources, and as a consequence, information in this document may materially change the coding, format and clinical context of patient data. In addition, data may be omitted in some cases. CLINICAL DECISIONS SHOULD BE BASED ON THE PRIMARY CLINICAL RECORDS. [facility]. provides no warranty or guarantee of the accuracy or completeness of information in this document.
[2024-09-22 11:22] LABS: Basophils Absolute Auto 0.1 10^3/uL (0.0-0.1); Basophils Percent Auto 0.8 % (0.2-2.0); Eosinophils Absolute Auto 0.1 10^3/uL (0.0-0.7); Eosinophils Percent Auto 2.2 % (0.9-7.0); Hematocrit 45.3 % (36.0-48.0); Hemoglobin 14.7 g/dL (12.0-16.0); Immature Granulocytes Abs Auto 0.04 10^3/uL (0.00-0.03); Immature Granulocytes Pct Auto 0.7 % (0.0-0.5); Lymphocytes Absolute Auto 1.4 10^3/uL (1.2-3.8); Lymphocytes Percent Auto 23.1 % (20.5-60.0); Mean Corpuscular HGB Conc 32.5 g/dL (29.9-35.2); Mean Corpuscular Hemoglobin 28.8 pg (26.7-34.0); Mean Corpuscular Volume 88.8 fL (81.0-99.0); Mean Platelet Volume 10.6 fL (9.5-13.5); Monocytes Absolute Auto 0.5 10^3/uL (0.3-0.8); Monocytes Percent Auto 7.7 % (1.7-12.0); Neutrophils Absolute Auto 3.9 10^3/uL (1.4-6.5); Neutrophils Percent Auto 65.5 % (43.0-75.0); Platelet Count 138 10^3/uL (150-450); Red Cell Distribution Width 13.2 % (11.0-15.0)
[2024-09-22 11:50] LABS: Alanine Aminotransferase <6 U/L (14-59); Albumin Globulin Ratio 1.1; Albumin Level 3.7 g/dL (3.4-5.0); Alkaline Phosphatase 109 U/L (46-116); Anion Gap 13.9; Aspartate Amino Transferase 14 U/L (15-37); BUN Creatinine Ratio 13.1; Bilirubin Total 0.6 mg/dL (0.2-1.0); Calcium 9.2 mg/dL (8.5-10.1); Carbon Dioxide 27.8 mmol/L (21.0-32.0); Chloride 108 mmol/L (98-107); Chol HDL Ratio 2.4; Cholesterol 183 mg/dL (<=200); Estimated GFR (African America >60 (>=60 mL/min/1.73m^2); Estimated GFR (Non-African Ame >60 (>=60 mL/min/1.73m^2); Globulin 3.3 g/dL; Glucose 89 mg/dL (74-106); HDL Cholesterol 77 mg/dL (40-60); Potassium 4.7 mmol/L (3.5-5.1); Sodium 145 mmol/L (136-145); Thyroid Stimulating Hormone 0.917 uIU/mL (0.358-3.740); Triglycerides 76 mg/dL (<=150); VLDL CHOLESTEROL 15.2 mg/dL
[2024-09-22 12:12] LABS: Percent Iron Saturation 30.5 %
[2024-09-23 06:37] LABS: Vitamin B12 430 pg/mL (232-1245)
== END 2024-09-22 10:52 | disposition home or self-care (01) ==
PROVIDERS: PCP Internal Medicine; Visit Provider Internal Medicine
DX: E03.9 Hypothyroidism, unspecified (principal); E78.00 Pure hypercholesterolemia, unspecified; D64.9 Anemia, unspecified; Z90.5 Acquired absence of kidney; T82.857D Stenosis of other cardiac prosthetic devices, implants and grafts, subsequent encounter
CPT/HCPCS: 36415; 80053; 80061; 82607; 82728; 83540; 83550; 84443; 85025

== ENCOUNTER 2025-09-24 08:32 | Outpatient (OUT) | payer MEDICARE, OTHER, SELFPAY ==
[2025-09-24 09:20] LABS: Hematocrit 44.8 % (36.0-48.0); Hemoglobin 14.4 g/dL (12.0-16.0); Immature Granulocytes Abs Auto 0.01 10^3/uL (0.00-0.03); Immature Granulocytes Pct Auto 0.2 % (0.0-0.5); Lymphocytes Absolute Auto 1.2 10^3/uL (1.2-3.8); Mean Corpuscular HGB Conc 32.1 g/dL (29.9-35.2); Mean Corpuscular Hemoglobin 28.9 pg (26.7-34.0); Mean Corpuscular Volume 90.0 fL (81.0-99.0); Platelet Count 158 10^3/uL (150-450); Red Blood Count 4.98 10^6/uL (4.20-5.40); White Blood Count 5.8 10^3/uL (4.0-11.0)
[2025-09-24 09:21] LABS: Alanine Aminotransferase 13 U/L (14-59); Albumin Globulin Ratio 1.2; Albumin Level 3.7 g/dL (3.4-5.0); Alkaline Phosphatase 103 U/L (46-116); Anion Gap 11.9; Aspartate Amino Transferase 17 U/L (15-37); Blood Urea Nitrogen 19.0 mg/dL (7.0-18.0); Calcium 9.3 mg/dL (8.5-10.1); Carbon Dioxide 31.4 mmol/L (21.0-32.0); Chloride 108 mmol/L (98-107); Cholesterol 181 mg/dL (<=200); Estimated GFR (African America >60 (>=60 mL/min/1.73m^2); Estimated GFR (Non-African Ame >60 (>=60 mL/min/1.73m^2); Globulin 3.2 g/dL; Glucose 93 mg/dL (74-106); HDL Cholesterol 77 mg/dL (40-60); Potassium 4.3 mmol/L (3.5-5.1); Sodium 147 mmol/L (136-145); Thyroid Stimulating Hormone 1.220 uIU/mL (0.358-3.740); Total Protein 6.9 g/dL (6.4-8.2); Triglycerides 76 mg/dL (<=150); VLDL CHOLESTEROL 15.2 mg/dL
== END 2025-09-24 08:33 | disposition home or self-care (01) ==
LOC: LAB 08:34
PROVIDERS: PCP Internal Medicine; Visit Provider Internal Medicine
DX: E78.00 Pure hypercholesterolemia, unspecified (principal); Z90.5 Acquired absence of kidney; R53.83 Other fatigue; E06.3 Autoimmune thyroiditis; T82.8 Other specified complications of cardiac and vascular prosthetic devices, implants and grafts
CPT/HCPCS: 36415; 80053; 80061; 84443; 85025